=== PATIENT | female | born 1955 | race Hispanic/Latino ===

== ENCOUNTER 2018-07-04 17:11 | Inpatient (IN) | payer OTHER ==
[2018-07-04] MEDS ORDERED: Dextrose 50% SYRINGE Inj (50 ml) ONE (17:18)
--- NOTE | 2018-07-04 17:23 | ED PDOC ---
Arrival/HPI - General Historian: EMS - History of Present Illness Narrative History of Present Illness (Text): 07/04/18 17:23 A 63 year old female presents to the emergency department status post cardiac arrest. Per EMS, patient was called at home for a welfare check with no resp onse, 911 was called and police found patient with agonal breathing. EMS reports while en route to hospital, patient was in cardiac arrest and defibrillated multiple times. Per EMS, epinephrine and amiodarone was administered and patient was intubated. Neighbors at scene state patient was not feeling well yesterday and patient did go to dialysis but did not get a full treatment. Full HPI and ROS due to patient's acuity of condition. PMD: Dr. Arizmendi Time/Duration: Prior to Arrival Symptom Onset: Sudden Activities at Onset: Light Context: Home Past Medical History - Provider Review Nursing Documentation Reviewed: Yes - Cardiac Hx Cardiac Disorders: No - Pulmonary Hx Chronic Obstructive Pulmonary Disease (COPD): Yes Hx Emphysema: Yes Hx Pneumonia: Yes (d/c 11/27/17) - Neurological Hx Neurological Disorder: No - HEENT Hx HEENT Disorder: No Other/Comment: 2- side by side nodule on left neck - Renal Hx Renal Disorder: No - Endocrine/Metabolic Hx Endocrine Disorders: No - Hematological/Oncological Hx Cancer: Yes (neck,back of tongue) - Integumentary Hx Dermatological Disorder: No - Musculoskeletal/Rheumatological Hx Musculoskeletal Disorders: No - Gastrointestinal Hx Gastrointestinal Disorders: No - Genitourinary/Gynecological Hx Genitourinary Disorders: No - Psychiatric Hx Substance Use: No - Anesthesia Hx Anesthesia: No Family/Social History - Physician Review Nursing Documentation Reviewed: Yes Family/Social History: No Known Family HX Smoking Status: Heavy Smoker > 10 Cigarettes Daily Hx Alcohol Use: Yes (socially) Hx Substance Use: No Allergies/Home Meds Allergies/Adverse Reactions: Allergies No Known Allergies Allergy (Verified 02/13/18 14:00) Review of Systems - Review of Systems Systems not reviewed;Unavailable: Acuity of Condition Physical Exam - Physical Exam Narrative Physical Exam (Text): 07/04/18 17:23 Constitutional: Unresponsive. Head: Normocephalic. Atraumatic. Eyes: Pupils dilated, reactive. ENT: Intubated. Coffee ground emesis at mouth. Neck: Supple. Cardiovascular: Regular rate. Chest: No deformity. Respiratory: Mechanically ventilated GI: Soft. Musculoskeletal: No swelling of extremities. Skin: No rash. Neurologic: Unresponsive. Vital Signs Reviewed: Yes Blood Pressure: Hypertensive Pulse: Regular Respiratory Rate: Normal Medical Decision Making ED Course and Treatment: 07/04/18 17:24 Impression: 63 year old female presents to the emergency department status post cardiac arrest. Plan: -- Type and screen -- VBG -- Head CT without contrast -- Labs -- CBC -- COAGs -- Chest X-ray -- Blood culture -- Urine culture -- Urinalysis -- Reassess and disposition Prior Visits: Notes and results from previous visits were reviewed. Progress Notes: 07/04/18 17:38 EKG: Ordered, reviewed, and independently interpreted the EKG. Rate : 80 BPM Rhythm : NSR Interpretation : No ST elevations, large p waves. Dr. Jarvis accepts patient to ICU. Dr. Vallejo accepts patient to hospitalist service. Disposition/Present on Arrival - Present on Arrival Any Indicators Present on Arrival: No History of DVT/PE: No History of Uncontrolled Diabetes: No Urinary Catheter: No History Surgical Site Infection Following: None - Disposition Have Diagnosis and Disposition been Completed?: Yes Diagnosis: Cardiac arrest, GI bleed, Hypoglycemia Disposition: HOSPITALIZED Disposition Time: 18:00 Patient Plan: ICU Condition: CRITICAL
[2018-07-04 17:41] LABS: VENOUS BLOOD GAS BASE EXCESS -18.4 mmol/L (0.0-2.0); VENOUS BLOOD GAS PO2 71 mm/Hg (30-55); VENOUS BLOOD PH 6.97 (7.32-7.43)
[2018-07-04 17:48] LABS: INR 1.21; PARTIAL THROMBOPLASTIN TIME 34.9 Seconds (25.1-36.5); PROTHROMBIN TIME 13.8 SECONDS (9.4-12.5)
[2018-07-04 17:52] LABS: EOS % 0.2 % (1.5-5.0); GRAN # 4.97 (1.4-6.5); GRAN % 77.9 % (50.0-68.0); HEMOGLOBIN 10.4 g/dL (12.0-16.0); LYMPH # 0.8 (1.2-3.4); LYMPH % 12.2 % (22.0-35.0); MEAN CELL VOLUME 86.5 fl (80.0-105.0); MEAN CORPUSCULAR HGB CONC 31.2 g/dl (31.0-37.0); MEAN PLATELET VOLUME 10.8 fl (7.0-11.0); MONO # 0.6 (0.1-0.6); MONO % 9.7 % (1.0-6.0); RBC 3.85 10^6/uL (3.5-6.1); RED CELL DISTRIBUTION WIDTH 15.4 % (11.5-14.5); WHITE BLOOD COUNT 6.4 10^3/uL (4.5-11.0)
[2018-07-04] MEDS ORDERED: Sodium Bicarbonate (8.4%) 50 Meq Syringe IVP ONE (18:05)
[2018-07-04 18:11] LABS: ALB/GLOB RATIO 1.3 (1.1-1.8); ALBUMIN 3.2 g/dL (3.0-4.8); CALCIUM 8.6 mg/dL (8.4-10.5); TROPONIN I 0.24 ng/mL
[2018-07-04 18:16] LABS: CK MB% 0.6 % (2.5-3.0); CK-MB 12.7 ng/mL (0.0-3.6)
[2018-07-04] MEDS ORDERED: Sodium Chloride 0.9% 1,000 ML IV STA (18:20)
--- NOTE | 2018-07-04 19:34 | CP.PCM.HP ---
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 Pt was found at home with agonal breathing by police. EMS reports that en route to hospital pt went into cardiac arrest and had to be defibrillated multiple times on the way to the hospital. Pt was given epi and amiodarone, as well as intubated. HPI and ROS were limited due to patient's intubation. Patient's daughter (Frances Diaz, ) was contacted and she states that she the patient has become homeless due to her alcohol abuse, and has withdrawn from her entire family due to her heavy alcohol use (Ms. Diaz states that she last spoke to the patient about 3months ago). Ms. Diaz also is unable to provide any medical history as the patient kept everything private. Ms. Diaz states that the patient has a brother and sister, who also have not been in touch with the patient. PMH: as above PSH: permacath FH: unobtainable at this time SH: heavy alcohol abuse, tobacco abuse Allergies: denies Present on Admission - Present on Admission Any Indicators Present on Admission: No Review of Systems - Review of Systems Systems not reviewed;Unavailable: Intubated Review of Systems: unable to obtain, pt is intubated Past Patient History - Infectious Disease Hx of Infectious Diseases: None - Past Medical History & Family History Past Medical History?: Yes - Past Social History Smoking Status: Heavy Smoker > 10 Cigarettes Daily Alcohol: > 2 Drinks/Day Home Situation {Lives}: Alone - CARDIAC Hx Cardiac Disorders: No - PULMONARY Hx Chronic Obstructive Pulmonary Disease (COPD): Yes Hx Emphysema: Yes Hx Pneumonia: Yes (d/c 11/27/17) - NEUROLOGICAL Hx Neurological Disorder: No - HEENT Hx HEENT Problems: No Other/Comment: 2- side by side nodule on left neck - RENAL Hx Chronic Kidney Disease: No - ENDOCRINE/METABOLIC Hx Endocrine Disorders: No - HEMATOLOGICAL/ONCOLOGICAL Hx Cancer: Yes (neck,back of tongue) - INTEGUMENTARY Hx Dermatological Problems: No - MUSCULOSKELETAL/RHEUMATOLOGICAL Hx Musculoskeletal Disorders: No - GASTROINTESTINAL Hx Gastrointestinal Disorders: No - GENITOURINARY/GYNECOLOGICAL Hx Genitourinary Disorders: No - PSYCHIATRIC Hx Substance Use: No - SURGICAL HISTORY Hx Surgeries: No - ANESTHESIA Hx Anesthesia: No Meds Allergies/Adverse Reactions: Allergies Allergy/AdvReac Type Severity Reaction Status Date / Time No Known Allergies Allergy Verified 02/13/18 14:00 Physical Exam - Constitutional Appears: Older Than Stated Age, Cachectic, Chronically Ill - Head Exam Head Exam: ATRAUMATIC, NORMOCEPHALIC - Eye Exam Eye Exam: Conjunctival injection Pupil Exam: Mydriatic - ENT Exam Additional comments: intubated - Neck Exam Additional comments: EJ left side - Respiratory Exam Respiratory Exam: Rhonchi Additional comments: intubated - Cardiovascular Exam Cardiovascular Exam: RRR, +S1, +S2. absent: Diastolic murmur, Systolic Murmur - GI/Abdominal Exam GI & Abdominal Exam: Normal Bowel Sounds, Soft - Extremities Exam Extremities exam: Positive for: full ROM, pedal pulses present. Negative for: pedal edema Additional comments: left AVF R permacath - Neurological Exam Additional comments: pt intubated; non-responsive off sedation - Psychiatric Exam Additional comments: could not assess - Skin Skin Exam: Dry, Intact, Warm Results - Vital Signs Recent Vital Signs: Last Vital Signs Temp 88.1 F L 07/04/18 18:47 Pulse 76 07/04/18 18:47 Resp 14 07/04/18 18:47 BP 130/60 07/04/18 18:47 Pulse Ox 97 07/04/18 18:47 - Labs Result Diagrams: 07/04/18 17:48 07/04/18 17:29 Labs: Laboratory Results - last 24 hr 07/04/18 07/04/18 07/04/18 17:24 17:29 17:29 WBC RBC Hgb Hct MCV MCH MCHC RDW Plt Count MPV Gran % Lymph % (Auto) Austin % (Auto) Eos % (Auto) Baso % (Auto) Gran # Lymph # (Auto) [place] # (Auto) Eos # (Auto) Baso # (Auto) PT 13.8 H INR 1.21 APTT 34.9 pO2 71 H VBG pH 6.97 L* VBG pCO2 60.0 VBG HCO3 13.8 L VBG Total CO2 15.6 L VBG O2 Sat (Calc) 89.1 H VBG Base Excess -18.4 L VBG Potassium 5.7 H Sodium 122.0 L Chloride 83.0 L Glucose 445 H* D Lactate 10.4 H* FiO2 21.0 Crit Value Called To Bren ruiz Crit Value Called By Atc Blood Gas Notified Time 1740 Potassium Carbon Dioxide Anion Gap BUN Creatinine Est GFR ( Amer) Est GFR (Non-Af Amer) POC Glucose (mg/dL) > 500 H* Random Glucose Calcium Total Bilirubin AST ALT Alkaline Phosphatase Total Creatine Kinase CK-MB (CK-2) CK-MB (CK-2) % Troponin I NT-Pro-B Natriuret Pep Total Protein Albumin Globulin Albumin/Globulin Ratio Lipase Venous Blood Potassium 5.7 H Blood Type Antibody Screen BBK History Checked 07/04/18 07/04/18 07/04/18 17:29 17:48 17:56 WBC 6.4 RBC 3.85 Hgb 10.4 L Hct 33.3 L MCV 86.5 MCH 27.0 MCHC 31.2 RDW 15.4 H Plt Count 121 MPV 10.8 Gran % 77.9 H Lymph % (Auto) 12.2 L Austin % (Auto) 9.7 H Eos % (Auto) 0.2 L Baso % (Auto) 0.0 Gran # 4.97 Lymph # (Auto) 0.8 L Austin # (Auto) 0.6 Eos # (Auto) 0.0 Baso # (Auto) 0.00 PT INR APTT pO2 VBG pH VBG pCO2 VBG HCO3 VBG Total CO2 VBG O2 Sat (Calc) VBG Base Excess VBG Potassium Sodium 126 L Chloride 84 L Glucose Lactate FiO2 Crit Value Called To Crit Value Called By Blood Gas Notified Time Potassium 5.7 H* Carbon Dioxide 16 L Anion Gap 32 H BUN 82 H Creatinine 5.7 H Est GFR ( Amer) 9 Est GFR (Non-Af Amer) 8 POC Glucose (mg/dL) Random Glucose 374 H* Calcium 8.6 Total Bilirubin 0.7 AST 1460 H ALT 485 H Alkaline Phosphatase 67 Total Creatine Kinase 2084 H CK-MB (CK-2) 12.7 H CK-MB (CK-2) % 0.6 L Troponin I 0.24 H* NT-Pro-B Natriuret Pep 81231 H Total Protein 5.7 L Albumin 3.2 Globulin 2.5 Albumin/Globulin Ratio 1.3 Lipase 25 Venous Blood Potassium Blood Type A POSITIVE Antibody Screen Negative BBK History Checked No verified bt 07/04/18 18:49 WBC RBC Hgb Hct MCV MCH MCHC RDW Plt Count MPV Gran % Lymph % (Auto) Austin % (Auto) Eos % (Auto) Baso % (Auto) Gran # Lymph # (Auto) Austin # (Auto) Eos # (Auto) Baso # (Auto) PT INR APTT pO2 VBG pH VBG pCO2 VBG HCO3 VBG Total CO2 VBG O2 Sat (Calc) VBG Base Excess VBG Potassium Sodium Chloride Glucose Lactate FiO2 Crit Value Called To Crit Value Called By Blood Gas Notified Time Potassium Carbon Dioxide Anion Gap BUN Creatinine Est GFR ( Amer) Est GFR (Non-Af Amer) POC Glucose (mg/dL) 123 H Random Glucose Calcium Total Bilirubin AST ALT Alkaline Phosphatase Total Creatine Kinase CK-MB (CK-2) CK-MB (CK-2) % Troponin I NT-Pro-B Natriuret Pep Total Protein Albumin Globulin Albumin/Globulin Ratio Lipase Venous Blood Potassium Blood Type Antibody Screen BBK History Checked Assessment & Plan - Assessment and Plan (Free Text) Assessment: 63 yo female with a PMH of COPD, emphysema, pneumonia, 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 Plan: Neuro - UDS follow up - intubated, off sedation - pupils dilated - CT head pending Cardio - s/p Cardiac arrest, currently off pressors - not a candidate for code freeze due to her malignancy - correct electrolytes, recheck electrolytes q6h - maintain MAP above 65, will start pressers if needed - ECHO pending - Calcium given due to hyperK Respiratory - COPD - pH 6.97, HCO3 13.8, lactate 10.4 - intubated - ABG ordered and will adjust vent settins appropriately GI - GI ppx, protonix - LFT's elevated suggestive of shock liver or possible EtOH hepatitis - IVF will given, trend LFTs Nephro/ - rhabdo present - ESRD - 1/2 NS with 75meq NaHCO3 due to acidemia - monitor I/O - K 5.7, will give insulin and D50 along w/ Calcium - BUN 82, Cr 5.7 Heme/ Onc - HGB 10.4 - INR 1.21 - no overt signs of bleeding - type and screen ID - immunocompromised, currently on chemo - monitor for signs of infection Endo - hyperglycemia, but not diabetic - accucheck q6 - hypoglycemic protocol Advanced planning: communicated with family (Frances Diaz [phone]) code status, unknown at this moment Family will visit tomorrow Pt seen, examined, assessment and plan discussed with Dr Damir Fraser PGY1 - Date & Time Date: 07/04/18 Time: 19:40
[2018-07-04] MEDS ORDERED: Insulin Regular 1 UNITS/0.01 ML ML SC STA (19:44)
[2018-07-04] MEDS ORDERED: Calcium Chloride 1000 mg/10 ml Syringe IV ONE (19:47)
[2018-07-04] MEDS ORDERED: Dextrose 50% SYRINGE Inj (50 ml) IVP STA (19:47)
[2018-07-04] MEDS ORDERED: Dextrose 50% SYRINGE Inj (50 ml) IV PRN (19:59)
[2018-07-04 20:19] LABS: ARTERIAL BLOOD GAS HCO3 16.4 mmol/L (21-28); ARTERIAL BLOOD GAS HEMOGLOBIN 10.4 g/dL (11.7-17.4); ARTERIAL BLOOD GAS O2 CAPACITY 15.8 mL/dl (16-24); ARTERIAL BLOOD GAS O2 CONTENT 15.8 ML/dl (15-23); ARTERIAL BLOOD GAS O2 SAT 100.3 % (95-98); ARTERIAL BLOOD GAS PCO2 54 mm/Hg (35-45); ARTERIAL BLOOD GAS PH 7.09 (7.35-7.45); ARTERIAL BLOOD GAS TCO2 18.1 mmol.L (22-28)
[2018-07-04] MEDS ORDERED: Magnesium Sulfate 2 gm/50 ml 2 GM/50 ML BAG IVPB ONE (21:03)
[2018-07-04] MEDS ORDERED: NOREPINEPHRINE BIT/0.9 % NACL 4 MG/250 ML BAG IV PRN (22:55)
--- NOTE | 2018-07-04 23:14 | PCM.PROC ---
Procedures Attestation:: I certify that I have explained the specified Operation(s) or Procedure(s), risks, benefits and reasonable alternatives to the Patient and/or other person responsible. The opportunity was given to ask questions and all questions answered - Central Line Placement Right Femoral Triple Lumen Catheter Aseptic technique was employed throughout the procedure: Hand Hygiene done prior to procedure, Full sterile barriers (mask, hair cover, sterile gown, sterile gloves), Full body sterile drape, Chloraprep Antiseptic: 2 minute prep for Femoral CVP Time Out Performed: No Pt. Placed on Pulse Ox Monitor: Yes Central Line Prep: Chlorhexidine-Alcohol Combination Local Anesthesia Used: Lidocaine 1% Amount of Anesthesia Used (mls): 5 Ultrasound Used for Placement: Yes Central Line Lumen Inserted: triple Central Line Length: 30 cm Post Procedure: Sutured in Place, Good Blood Return, All Ports Aspirated, Flushed, Capped, Sterile Dressing Applied Secured by: Suture Post procedure dressing: Clear vapor permeable, Chlorhexidine disc (Biopatch) Post Procedure X-Ray: No Patient Tolerated Procedure: Well, No Complications Immediate Complications: None Additional Comments: Consent could not be obtained as TLC was emergently inserted Assisted by resident intern Dr. Cadena
--- NOTE | 2018-07-04 23:20 | CP.PCM.PCO ---
Physician Communication Note - Physician Communication Note Physician Communication Note: R femoral TLC placed,levophed gtt started as BP dropped,banana bag for etoh
[2018-07-04 23:43] VITALS: BMI 16.8
[2018-07-04 23:43] LABS: VENOUS BLOOD GAS BASE EXCESS -11.8 mmol/L (0.0-2.0); VENOUS BLOOD GAS PO2 44 mm/Hg (30-55); VENOUS BLOOD PH 7.03 (7.32-7.43)
[2018-07-04 23:53] LABS: HEMOGLOBIN 10.7 g/dL (12.0-16.0); MEAN CELL VOLUME 87.2 fl (80.0-105.0); MEAN CORPUSCULAR HEMOGLOBIN 27.4 pg (25.0-35.0); MEAN CORPUSCULAR HGB CONC 31.4 g/dl (31.0-37.0); MEAN PLATELET VOLUME 9.6 fl (7.0-11.0); RBC 3.91 10^6/uL (3.5-6.1); RED CELL DISTRIBUTION WIDTH 15.3 % (11.5-14.5); WHITE BLOOD COUNT 3.4 10^3/uL (4.5-11.0)
[2018-07-05] MEDS: Dexamethasone 4 mg/1 ml IVP SCH ×6 (00:10→20:00)
[2018-07-05 00:17] LABS: ARTERIAL BLOOD GAS HCO3 18.1 mmol/L (21-28); ARTERIAL BLOOD GAS HEMOGLOBIN 11.2 g/dL (11.7-17.4); ARTERIAL BLOOD GAS O2 SAT 100.2 % (95-98); ARTERIAL BLOOD GAS PCO2 57 mm/Hg (35-45); ARTERIAL BLOOD GAS PH 7.11 (7.35-7.45); ARTERIAL BLOOD GAS TCO2 19.8 mmol.L (22-28)
[2018-07-05 00:43] LABS: ALB/GLOB RATIO 1.2 (1.1-1.8); ALBUMIN 3.1 g/dL (3.0-4.8); CALCIUM 9.5 mg/dL (8.4-10.5); TROPONIN I 0.31 ng/mL
[2018-07-05] MEDS ORDERED: Multivitamin (MVI) 10 ML, Thiamine 100 MG, Folic Acid 1 MG in Sodium Chloride 0.9% 1,00... IV ONE (01:02)
[2018-07-05 01:05] LABS: CK MB% 0.6 % (2.5-3.0); CK-MB 28.4 ng/mL (0.0-3.6)
[2018-07-05 05:51] LABS: BASO # 0.01 K/mm3 (0.0-2.0); BASO % 0.2 % (0.0-3.0); EOS % 0.2 % (1.5-5.0); GRAN # 2.87 (1.4-6.5); GRAN % 57.5 % (50.0-68.0); HEMOGLOBIN 9.2 g/dL (12.0-16.0); LYMPH # 1.3 (1.2-3.4); LYMPH % 25.9 % (22.0-35.0); MEAN CELL VOLUME 88.7 fl (80.0-105.0); MEAN CORPUSCULAR HEMOGLOBIN 26.7 pg (25.0-35.0); MEAN CORPUSCULAR HGB CONC 30.2 g/dl (31.0-37.0); MEAN PLATELET VOLUME 9.3 fl (7.0-11.0); MONO # 0.8 (0.1-0.6); MONO % 16.2 % (1.0-6.0); RBC 3.44 10^6/uL (3.5-6.1); RED CELL DISTRIBUTION WIDTH 15.3 % (11.5-14.5)
[2018-07-05 06:04] LABS: VENOUS BLOOD GAS BASE EXCESS -12.2 mmol/L (0.0-2.0); VENOUS BLOOD GAS PO2 33 mm/Hg (30-55); VENOUS BLOOD PH 7.03 (7.32-7.43)
--- NOTE | 2018-07-05 06:04 | PCM.RRT ---
HUMAN RESOURCES BENEFITS SPECIALIST Nurse Assessment - Situation Date: 07/05/18 Time HUMAN RESOURCES BENEFITS SPECIALIST was called: 05:32 HUMAN RESOURCES BENEFITS SPECIALIST Responder Arrival Time: 05:33 HUMAN RESOURCES BENEFITS SPECIALIST Location:: Critical Care Unit Room Number: 128-1 HUMAN RESOURCES BENEFITS SPECIALIST Reason for Call: Not Responding to Urgent Treatment HUMAN RESOURCES BENEFITS SPECIALIST Called By: RN - IV IV Inserted during HUMAN RESOURCES BENEFITS SPECIALIST?: No - Respiratory Oxygen Delivery Method: Intubated - Ventilator Settings Mode: PRVC Ventilator Respiratory Rate Settin Ventilator Tidal Volume Settin PEEP: 5 Fraction of Inspired Oxygen (FIO2): 40 - Medication Medications Administered During HUMAN RESOURCES BENEFITS SPECIALIST: epinephrine, bicarb - Diagnostic Test Ordered EKG: Yes - Stat Labs Ordered HUMAN RESOURCES BENEFITS SPECIALIST Stat Labs Ordered: CBC, BMP, TROPONIN, LACTIC ACID, ABG CPR started during HUMAN RESOURCES BENEFITS SPECIALIST?: Yes - Time HUMAN RESOURCES BENEFITS SPECIALIST Ended Time HUMAN RESOURCES BENEFITS SPECIALIST Ended: 05:40 - Vital Signs at end of HUMAN RESOURCES BENEFITS SPECIALIST Vital Signs at end of HUMAN RESOURCES BENEFITS SPECIALIST: 205/165 - Recommendations 5) HUMAN RESOURCES BENEFITS SPECIALIST Level of Care Recommendations: Remain in current setting Notifications: Attending Physician, Family or Designated Caregiver (attempted unsucessfully ) I.Reason for HUMAN RESOURCES BENEFITS SPECIALIST - A) Acute Change in Patient: Subjective: code blue - Constitutional Appears: Toxic, Cachectic, Chronically Ill - Head Head Exam: ATRAUMATIC - Eyes Eye Exam: absent: PERRL Additional Comments: dilated pupils, nonreactive to light b/l - Respiratory Exam Respiratory Exam: Clear to Ausculation Bilateral, NORMAL BREATHING PATTERN Additional comments: intubated, on vent - Cardiovascular Exam Cardiovascular Exam: RRR, +S1, +S2 Additional comments: R femoral TLC R chest permacath L AVF - GI/Abdominal Exam GI & Abdominal Exam: Soft. absent: Tenderness Additional comments: gt in place suction to wall showing dark fluid - Neurological Exam Neurological Exam: absent: Alert, Awake, Oriented x3 Additional exam: non-responsive, off sedation - Extremities Exam Extremities Exam: absent: Full ROM, Pedal Edema Additional comments: + ramsey cath Plan - Assessment of Findings&Treatment Plan CODE BLUE note 63 year old female with a PMH of head/neck CA on chemo and XRT (complicated by renal failure requiring HD), heavy EtOH abuse who presented post-cardiac arrest. Labs had showed metabolic acidosis, hyperkalemia, and end-organ damage. Patient was on levophed for BP support when she went pulseless, and JAYNE BUCKNER was called. Cardiac arrest protocol was carried out for asystole according to AHA ACLS protocol. 3 rounds of epinephrine were administered, as was 1amp bicarb. Compressions were performed, and patient was already intubated. Rhythm was unshockable and monitor showed PEA. EKG and labs were drawn. ROSC was obtained in about 10 minutes. Patient's daughter (Ms. Diaz) was contacted but there was no response (a message was left to call Dr. Cordova back). The patient remains full-code, and she will remain in ICU on Levophed and IVF. Glucose was noted to be <20, so 1amp D50 was also administered after ROSC was obtained. Brian Cordova PGY2
[2018-07-05 06:06] LABS: ARTERIAL BLOOD GAS HCO3 16.3 mmol/L (21-28); ARTERIAL BLOOD GAS HEMOGLOBIN 9.2 g/dL (11.7-17.4); ARTERIAL BLOOD GAS O2 CAPACITY 13.2 mL/dl (16-24); ARTERIAL BLOOD GAS O2 CONTENT 13.2 ML/dl (15-23); ARTERIAL BLOOD GAS O2 SAT 99.9 % (95-98); ARTERIAL BLOOD GAS PCO2 55 mm/Hg (35-45); ARTERIAL BLOOD GAS PH 7.08 (7.35-7.45)
[2018-07-05 06:24] LABS: PLATELET COUNT 44 10^3/uL (120.0-450.0)
[2018-07-05] MEDS ORDERED: Sodium Bicarbonate (8.4%) 50 Meq Syringe IVP ONE ×3 (06:52→08:46)
[2018-07-05] MEDS ORDERED: Vasopressin 20 UNITS in Dextrose 5% In Water 100 ML IV SCH (07:15)
[2018-07-05 07:24] LABS: ALBUMIN 2.2 g/dL (3.0-4.8); ALT/SGPT 1239 U/L (7-56); AST/SGOT 4212 U/L (14-36); BLOOD UREA NITROGEN 78 mg/dL (7-21); CALCIUM 7.5 mg/dL (8.4-10.5); GFR NON-AFRICAN AMERICAN 10
[2018-07-05 07:30] LABS: CK MB% 0.8 % (2.5-3.0)
--- NOTE | 2018-07-05 08:02 | CARD ---
APPROVED REPORT Date of service: 07/04/2018 EKG Measurement Heart [id number] <Conclusion> Normal sinus rhythm Right atrial enlargement Left axis deviation Pulmonary disease pattern Inferior infarct, age undetermined Abnormal ECG
--- NOTE | 2018-07-05 08:15 | CARD ---
APPROVED REPORT Date of service: 07/05/2018 EKG Measurement Heart [id number] <Conclusion> Sinus rhythm with 1st degree AV block Right atrial enlargement Left anterior fascicular block Anteroseptal infarct, age undetermined Abnormal ECG
[2018-07-05] MEDS ORDERED: Dextrose 50% SYRINGE Inj (50 ml) ONE (08:30)
[2018-07-05] MEDS: Dextrose 50% SYRINGE Inj (50 ml) IV PRN ×5 (09:26→20:05)
[2018-07-05 09:30] LABS: VENOUS BLOOD GAS BASE EXCESS -7.8 mmol/L (0.0-2.0); VENOUS BLOOD GAS PO2 52 mm/Hg (30-55); VENOUS BLOOD PH 7.12 (7.32-7.43)
[2018-07-05] MEDS ORDERED: SODIUM BICARBONATE IV SCH ×4 (09:45→13:00)
[2018-07-05] MEDS ORDERED: Sodium Bicarbonate 8.4% 100 MEQ in Dextrose 5%/0.45% NS 1,000 ML IV SCH ×2 (09:45→11:12)
[2018-07-05] MEDS ORDERED: [UNRECOGNIZED DRUG - OTHER] IV SCH (09:45)
[2018-07-05] MEDS ORDERED: DEXTROSE IV SCH (09:45)
[2018-07-05] MEDS ORDERED: Multivitamin (MVI) 10 ML, Thiamine 100 MG, Folic Acid 1 MG in Sodium Chloride 0.9% 1,00... IV SCH (10:00)
--- NOTE | 2018-07-05 10:52 | CT ---
Date of service: 07/04/2018 PROCEDURE: CT HEAD WITHOUT CONTRAST. HISTORY: ams, arrested COMPARISON: None available. TECHNIQUE: Axial computed tomography images were obtained through the head/brain without intravenous contrast. Radiation dose: Total exam DLP = 1247.04 mGy-cm. This CT exam was performed using one or more of the following dose reduction techniques: Automated exposure control, adjustment of the mA and/or kV according to patient size, and/or use of iterative reconstruction technique. FINDINGS: HEMORRHAGE: No intracranial hemorrhage. BRAIN: Ill-defined low-attenuation both high frontoparietal vertex, bilateral occipital lobe, right greater than left. Loss of normal sam/white matter differentiation diffusely. Suspect diffuse cerebral edema. Likely secondary to recent hypoxic event. No focal mass. VENTRICLES: Unremarkable. No hydrocephalus. CALVARIUM: Unremarkable. PARANASAL SINUSES: Air-fluid level in right maxillary antrum, uncertain significance. No evidence of orbital floor fracture. Possible acute sinusitis. Correlate clinically. Air-fluid levels also seen in sphenoid sinus and minimal in left maxillary sinus. MASTOID AIR CELLS: Unremarkable as visualized. No inflammatory changes. OTHER FINDINGS: None. IMPRESSION: Findings suggestive of diffuse cerebral edema likely secondary to recent hypoxic event. Air-fluid levels in multiple paranasal sinuses which may reflect acute sinusitis. Correlate clinically. The preliminary findings for this examination were reported by [facility] at 9:13 p.m. on 07/04/2018. There is concurrence of this report with the preliminary findings.
[2018-07-05 11:23] LABS: ARTERIAL BLOOD GAS HCO3 22.9 mmol/L (21-28); ARTERIAL BLOOD GAS PCO2 51 mm/Hg (35-45); ARTERIAL BLOOD GAS PH 7.26 (7.35-7.45); ARTERIAL BLOOD GAS TCO2 24.5 mmol.L (22-28)
[2018-07-05] MEDS ORDERED: DEXTROSE 5% IV SCH ×3 (12:30→13:00)
[2018-07-05] MEDS ORDERED: WATER IV SCH ×3 (12:30→13:00)
--- NOTE | 2018-07-05 13:21 | CP.PCM.CON ---
History of Present Illness - History of Present Illness History of Present Illness: RENAL CONSULT 63 yo F w/ pmh of COPD, ESRD, HTN, head anc neck Ca that presented to ER post arrest. Was found at home w/ agnoal breathing and brought ot hospital. She remains in icu on pressors and unresponsive. Unable to get any further history - discussed case w/ her daugther over phone who states pt has cut herself off from family and she doesnot know too much details regarding her. ros: a full detailed ROS is limited as pt intubated and sedated pmh: esrd htn copd cancer famhx: unable to obtain sh: unable to obtain meds: below all: nkda pe: intubated and sedated sclera aniciterc op et tube neck: supple cv +s1+s2 no rub lungs reduced bs mechanical bs abd: soft nt nd no organomegaly ext: + edema skin: + scratch wilde b/l LE neuro: sedated psych: sedated labs and imaging reviewed imp: ESRD /Hyperkalemia/ Cardiac arrest/ Anemia / Acidosis plan: will trial I-HD today given severe hyperk w/ no UF given her hypotension k should improve p hd arrest - per primary team prbc per primary team will hold irco for now d/c hco3 gtt as will get HD if able to start meds po start phoslo 3 tabs po TID Past Patient History - Infectious Disease Hx of Infectious Diseases: None - Past Medical History & Family History Past Medical History?: Yes - Past Social History Smoking Status: Heavy Smoker > 10 Cigarettes Daily - CARDIAC Hx Cardiac Disorders: No - PULMONARY Hx Chronic Obstructive Pulmonary Disease (COPD): Yes Hx Emphysema: Yes Hx Pneumonia: Yes (d/c 11/27/17) - NEUROLOGICAL Hx Neurological Disorder: No - HEENT Hx HEENT Problems: No Other/Comment: 2- side by side nodule on left neck - RENAL Hx Chronic Kidney Disease: No - ENDOCRINE/METABOLIC Hx Endocrine Disorders: No - HEMATOLOGICAL/ONCOLOGICAL Hx Cancer: Yes (neck,back of tongue) - INTEGUMENTARY Hx Dermatological Problems: No - MUSCULOSKELETAL/RHEUMATOLOGICAL Hx Musculoskeletal Disorders: No Hx Falls: Yes - GASTROINTESTINAL Hx Gastrointestinal Disorders: No - GENITOURINARY/GYNECOLOGICAL Hx Genitourinary Disorders: No - PSYCHIATRIC Hx Psychophysiologic Disorder: No - SURGICAL HISTORY Hx Surgeries: No - ANESTHESIA Hx Anesthesia: No Meds Allergies/Adverse Reactions: Allergies Allergy/AdvReac Type Severity Reaction Status Date / Time No Known Allergies Allergy Verified 02/13/18 14:00 - Medications Medications: Current Medications Dexamethasone (Decadron Inj) 4 mg IVP Q4 KARINA Last Admin: 07/05/18 08:49 Dose: 4 mg Dextrose (Dextrose 50% Inj) 0 ml IV STAT PRN; Protocol PRN Reason: Hypoglycemia Protocol Last Admin: 07/05/18 06:00 Dose: 50 ml Dextrose (Dextrose 50% Inj) 0 ml IV STAT PRN; Protocol PRN Reason: Hypoglycemia Protocol Last Admin: 07/05/18 10:26 Dose: 50 ml Multivitamins/Vitamin C 10 ml/Thiamine HCl 100 mg/ Folic Acid 1 mg/ Sodium Chloride 1,011.2 mls @ 100 mls/hr IV DAILY KARINA Multivitamins/Vitamin C 10 ml/Thiamine HCl 100 mg/ Folic Acid 1 mg/ Sodium Chloride 1,011.2 mls @ 40 mls/hr IV .Q24H ONE Stop: 07/06/18 01:01 Last Admin: 07/05/18 01:44 Dose: 40 mls/hr Vasopressin 20 units/ Sodium (Chloride) 101 mls @ 9.09 mls/hr IV .Q11H7M KARINA; Protocol Last Admin: 07/05/18 08:45 Dose: 9.09 mls/hr Dextrose (Dextrose 10% In Water) 500 mls @ 50 mls/hr IV .Q10H KARINA Last Admin: 07/05/18 10:25 Dose: 50 mls/hr Norepinephrine Bitartrate 16 (mg/ Dextrose) 266 mls @ 3.99 mls/hr IV .Q24H KARINA; Protocol Last Admin: 07/05/18 11:30 Dose: 15 mcg/min, 14.96 mls/hr Sodium Bicarbonate 100 meq/ (Dextrose) 600 mls @ 40 mls/hr IV .Q15H KARINA Sodium Bicarbonate 100 meq/ (Dextrose) 600 mls @ 40 mls/hr IV .Q15H KARINA Pantoprazole Sodium (Protonix Inj) 40 mg IVP DAILY [facility] Last Admin: 07/05/18 09:00 Dose: 40 mg Results - Vital Signs Recent Vital Signs: Last Vital Signs Temp 98.4 F 07/05/18 10:00 Pulse 96 H 07/05/18 10:00 Resp 31 H 07/05/18 00:01 BP 139/76 07/05/18 10:00 Pulse Ox 95 07/05/18 10:00 - Labs Result Diagrams: 07/05/18 05:00 07/05/18 05:00 Labs: Laboratory Results - last 24 hr 07/04/18 07/04/18 07/04/18 17:24 17:29 17:29 WBC RBC Hgb Hct MCV MCH MCHC RDW Plt Count MPV Gran % Lymph % (Auto) [place] % (Auto) Eos % (Auto) Baso % (Auto) Gran # Lymph # (Auto) [place] # (Auto) Eos # (Auto) Baso # (Auto) PT 13.8 H INR 1.21 APTT 34.9 pCO2 pO2 71 H HCO3 ABG pH ABG Total CO2 ABG O2 Saturation ABG O2 Content ABG Base Excess ABG Hemoglobin ABG Carboxyhemoglobin POC ABG HHb (Measured) ABG Methemoglobin ABG O2 Capacity ABG Potassium VBG pH 6.97 L* VBG pCO2 60.0 VBG HCO3 13.8 L VBG Total CO2 15.6 L VBG O2 Sat (Calc) 89.1 H VBG Base Excess -18.4 L VBG Potassium 5.7 H Hgb O2 Saturation Sodium 122.0 L Chloride 83.0 L Glucose 445 H* D Lactate 10.4 H* Mechanical Rate FiO2 21.0 Tidal Volume PEEP Crit Value Called To Bren ruiz Crit Value Called By [facility] Blood Gas Notified Time 1740 Potassium Carbon Dioxide Anion Gap BUN Creatinine Est GFR ( Amer) Est GFR (Non-Af Amer) POC Glucose (mg/dL) > 500 H* Random Glucose Calcium Phosphorus Magnesium Total Bilirubin AST ALT Alkaline Phosphatase Lactate Dehydrogenase Total Creatine Kinase CK-MB (CK-2) CK-MB (CK-2) % Troponin I NT-Pro-B Natriuret Pep Total Protein Albumin Globulin Albumin/Globulin Ratio Lipase TSH 3rd Generation Arterial Blood Potassium Venous Blood Potassium 5.7 H Acetaminophen Alcohol, Quantitative Blood Type Antibody Screen BBK History Checked 07/04/18 07/04/18 07/04/18 17:29 17:48 17:56 WBC 6.4 RBC 3.85 Hgb 10.4 L Hct 33.3 L MCV 86.5 MCH 27.0 MCHC 31.2 RDW 15.4 H Plt Count 121 MPV 10.8 Gran % 77.9 H Lymph % (Auto) 12.2 L [place] % (Auto) 9.7 H Eos % (Auto) 0.2 L Baso % (Auto) 0.0 Gran # 4.97 Lymph # (Auto) 0.8 L [place] # (Auto) 0.6 Eos # (Auto) 0.0 Baso # (Auto) 0.00 PT INR APTT pCO2 pO2 HCO3 ABG pH ABG Total CO2 ABG O2 Saturation ABG O2 Content ABG Base Excess ABG Hemoglobin ABG Carboxyhemoglobin POC ABG HHb (Measured) ABG Methemoglobin ABG O2 Capacity ABG Potassium VBG pH VBG pCO2 VBG HCO3 VBG Total CO2 VBG O2 Sat (Calc) VBG Base Excess VBG Potassium Hgb O2 Saturation Sodium 126 L Chloride 84 L Glucose Lactate Mechanical Rate FiO2 Tidal Volume PEEP Crit Value Called To Crit Value Called By Blood Gas Notified Time Potassium 5.7 H* Carbon Dioxide 16 L Anion Gap 32 H BUN 82 H Creatinine 5.7 H Est GFR ( Amer) 9 Est GFR (Non-Af Amer) 8 POC Glucose (mg/dL) Random Glucose 374 H* Calcium 8.6 Phosphorus Magnesium Total Bilirubin 0.7 AST 1460 H ALT 485 H Alkaline Phosphatase 67 Lactate Dehydrogenase Total Creatine Kinase 2084 H CK-MB (CK-2) 12.7 H CK-MB (CK-2) % 0.6 L Troponin I 0.24 H* NT-Pro-B Natriuret Pep 22161 H Total Protein 5.7 L Albumin 3.2 Globulin 2.5 Albumin/Globulin Ratio 1.3 Lipase 25 TSH 3rd Generation Arterial Blood Potassium Venous Blood Potassium Acetaminophen Alcohol, Quantitative Blood Type A POSITIVE Antibody Screen Negative BBK History Checked No verified bt 07/04/18 07/04/18 07/04/18 18:49 20:00 20:00 WBC RBC Hgb Hct MCV MCH MCHC RDW Plt Count MPV Gran % Lymph % (Auto) [place] % (Auto) Eos % (Auto) Baso % (Auto) Gran # Lymph # (Auto) [place] # (Auto) Eos # (Auto) Baso # (Auto) PT INR APTT pCO2 pO2 HCO3 ABG pH ABG Total CO2 ABG O2 Saturation ABG O2 Content ABG Base Excess ABG Hemoglobin ABG Carboxyhemoglobin POC ABG HHb (Measured) ABG Methemoglobin ABG O2 Capacity ABG Potassium VBG pH VBG pCO2 VBG HCO3 VBG Total CO2 VBG O2 Sat (Calc) VBG Base Excess VBG Potassium Hgb O2 Saturation Sodium Chloride Glucose Lactate Mechanical Rate FiO2 Tidal Volume PEEP Crit Value Called To Crit Value Called By Blood Gas Notified Time Potassium Carbon Dioxide Anion Gap BUN Creatinine Est GFR ( Amer) Est GFR (Non-Af Amer) POC Glucose (mg/dL) 123 H Random Glucose Calcium Phosphorus Magnesium Total Bilirubin AST ALT Alkaline Phosphatase Lactate Dehydrogenase Total Creatine Kinase CK-MB (CK-2) CK-MB (CK-2) % Troponin I NT-Pro-B Natriuret Pep Total Protein Albumin Globulin Albumin/Globulin Ratio Lipase TSH 3rd Generation Arterial Blood Potassium Venous Blood Potassium Acetaminophen < 10.0 L Alcohol, Quantitative < 10 Blood Type Antibody Screen BBK History Checked 07/04/18 07/04/18 07/04/18 20:00 20:09 20:17 WBC RBC Hgb Hct MCV MCH MCHC RDW Plt Count MPV Gran % Lymph % (Auto) [place] % (Auto) Eos % (Auto) Baso % (Auto) Gran # Lymph # (Auto) [place] # (Auto) Eos # (Auto) Baso # (Auto) PT INR APTT pCO2 54 H pO2 473.0 H HCO3 16.4 L ABG pH 7.09 L* ABG Total CO2 18.1 L ABG O2 Saturation 100.3 H ABG O2 Content 15.8 ABG Base Excess -13.2 L ABG Hemoglobin 10.4 L ABG Carboxyhemoglobin 1.2 POC ABG HHb (Measured) -0.3 L ABG Methemoglobin 0.5 ABG O2 Capacity 15.8 L ABG Potassium VBG pH VBG pCO2 VBG HCO3 VBG Total CO2 VBG O2 Sat (Calc) VBG Base Excess VBG Potassium Hgb O2 Saturation 98.7 H Sodium Chloride Glucose Lactate Mechanical Rate FiO2 100.0 Tidal Volume PEEP Crit Value Called To Iqsa rn Crit Value Called By Matthew Blood Gas Notified Time 2019 Potassium Carbon Dioxide Anion Gap BUN Creatinine Est GFR ( Amer) Est GFR (Non-Af Amer) POC Glucose (mg/dL) 143 H Random Glucose Calcium Phosphorus 11.9 H Magnesium 2.7 H Total Bilirubin AST ALT Alkaline Phosphatase Lactate Dehydrogenase Total Creatine Kinase CK-MB (CK-2) CK-MB (CK-2) % Troponin I NT-Pro-B Natriuret Pep Total Protein Albumin Globulin Albumin/Globulin Ratio Lipase TSH 3rd Generation Arterial Blood Potassium Venous Blood Potassium Acetaminophen Alcohol, Quantitative Blood Type Antibody Screen BBK History Checked 07/04/18 07/04/18 07/04/18 23:20 23:20 23:20 WBC 3.4 L D RBC 3.91 Hgb 10.7 L Hct 34.1 L MCV 87.2 MCH 27.4 MCHC 31.4 RDW 15.3 H Plt Count 92 L MPV 9.6 Gran % Lymph % (Auto) [place] % (Auto) Eos % (Auto) Baso % (Auto) Gran # Lymph # (Auto) [place] # (Auto) Eos # (Auto) Baso # (Auto) PT INR APTT pCO2 pO2 44 HCO3 ABG pH ABG Total CO2 ABG O2 Saturation ABG O2 Content ABG Base Excess ABG Hemoglobin ABG Carboxyhemoglobin POC ABG HHb (Measured) ABG Methemoglobin ABG O2 Capacity ABG Potassium VBG pH 7.03 L* VBG pCO2 77.0 H* VBG HCO3 20.3 L VBG Total CO2 22.7 VBG O2 Sat (Calc) 66.5 H VBG Base Excess -11.8 L VBG Potassium 5.4 H Hgb O2 Saturation Sodium 130 L 127.0 L Chloride 89 L 90.0 L Glucose 161 H Lactate 8.2 H* Mechanical Rate FiO2 21.0 Tidal Volume PEEP Crit Value Called To cha Baldwin Crit Value Called By Jeevan Blood Gas Notified Time 2343 Potassium 5.3 H Carbon Dioxide 23 Anion Gap 24 H BUN 86 H Creatinine 5.3 H Est GFR ( Amer) 10 Est GFR (Non-Af Amer) 8 POC Glucose (mg/dL) Random Glucose 154 H Calcium 9.5 Phosphorus 11.0 H Magnesium 2.4 H Total Bilirubin 0.7 AST 2771 H ALT 571 H Alkaline Phosphatase 80 Lactate Dehydrogenase 7324 H Total Creatine Kinase 4669 H CK-MB (CK-2) 28.4 H CK-MB (CK-2) % 0.6 L Troponin I 0.31 H* D NT-Pro-B Natriuret Pep Total Protein 5.7 L Albumin 3.1 Globulin 2.6 Albumin/Globulin Ratio 1.2 Lipase TSH 3rd Generation Arterial Blood Potassium Venous Blood Potassium 5.4 H Acetaminophen Alcohol, Quantitative Blood Type Antibody Screen BBK History Checked 07/04/18 07/05/18 07/05/18 23:59 00:11 05:00 WBC RBC Hgb Hct MCV MCH MCHC RDW Plt Count MPV Gran % Lymph % (Auto) [place] % (Auto) Eos % (Auto) Baso % (Auto) Gran # Lymph # (Auto) [place] # (Auto) Eos # (Auto) Baso # (Auto) PT INR APTT pCO2 57 H pO2 556.0 H HCO3 18.1 L ABG pH 7.11 L* ABG Total CO2 19.8 L ABG O2 Saturation 100.2 H ABG O2 Content 17.0 ABG Base Excess -11.4 L ABG Hemoglobin 11.2 L ABG Carboxyhemoglobin 1.2 POC ABG HHb (Measured) -0.2 L ABG Methemoglobin 0.9 ABG O2 Capacity 17.0 ABG Potassium VBG pH VBG pCO2 VBG HCO3 VBG Total CO2 VBG O2 Sat (Calc) VBG Base Excess VBG Potassium Hgb O2 Saturation 98.1 H Sodium Chloride Glucose Lactate Mechanical Rate FiO2 100.0 Tidal Volume PEEP Crit Value Called To Agustina romo Crit Value Called By [facility] Blood Gas Notified Time 16 Potassium Carbon Dioxide Anion Gap BUN Creatinine Est GFR ( Amer) Est GFR (Non-Af Amer) POC Glucose (mg/dL) 176 H Random Glucose Calcium Phosphorus Magnesium Total Bilirubin AST ALT Alkaline Phosphatase Lactate Dehydrogenase Total Creatine Kinase CK-MB (CK-2) CK-MB (CK-2) % Troponin I NT-Pro-B Natriuret Pep Total Protein Albumin Globulin Albumin/Globulin Ratio Lipase TSH 3rd Generation 8.48 H Arterial Blood Potassium Venous Blood Potassium Acetaminophen Alcohol, Quantitative Blood Type Antibody Screen BBK History Checked 07/05/18 07/05/18 07/05/18 05:00 05:00 05:00 WBC 5.0 D RBC 3.44 L Hgb 9.2 L Hct 30.5 L MCV 88.7 MCH 26.7 MCHC 30.2 L RDW 15.3 H Plt Count 44 L* MPV 9.3 Gran % 57.5 Lymph % (Auto) 25.9 [place] % (Auto) 16.2 H Eos % (Auto) 0.2 L Baso % (Auto) 0.2 Gran # 2.87 Lymph # (Auto) 1.3 [place] # (Auto) 0.8 H Eos # (Auto) 0.0 Baso # (Auto) 0.01 PT INR APTT pCO2 pO2 33 HCO3 ABG pH ABG Total CO2 ABG O2 Saturation ABG O2 Content ABG Base Excess ABG Hemoglobin ABG Carboxyhemoglobin POC ABG HHb (Measured) ABG Methemoglobin ABG O2 Capacity ABG Potassium VBG pH 7.03 L* VBG pCO2 75.0 H* VBG HCO3 19.8 L VBG Total CO2 22.1 VBG O2 Sat (Calc) 50.8 VBG Base Excess -12.2 L VBG Potassium 6.4 H* Hgb O2 Saturation Sodium 136 133.0 Chloride 97 L 96.0 L Glucose 15 L* D Lactate 10.3 H* Mechanical Rate FiO2 21.0 Tidal Volume PEEP Crit Value Called To moncho Anthony Crit Value Called By Jeevan Blood Gas Notified Time 603 Potassium 6.4 H* D Carbon Dioxide 21 Anion Gap 24 H BUN 78 H Creatinine 4.6 H Est GFR ( Amer) 12 Est GFR (Non-Af Amer) 10 POC Glucose (mg/dL) Random Glucose < 20 L* D Calcium 7.5 L Phosphorus 10.0 H Magnesium 2.3 H Total Bilirubin 0.7 AST 4212 H ALT 1239 H Alkaline Phosphatase 61 Lactate Dehydrogenase 04865 H Total Creatine Kinase 3185 H CK-MB (CK-2) 26.0 H CK-MB (CK-2) % 0.8 L Troponin I 0.30 H* NT-Pro-B Natriuret Pep Total Protein 4.3 L Albumin 2.2 L Globulin 2.1 Albumin/Globulin Ratio 1.0 L Lipase TSH 3rd Generation Arterial Blood Potassium Venous Blood Potassium 6.4 H* Acetaminophen Alcohol, Quantitative Blood Type Antibody Screen BBK History Checked 07/05/18 07/05/18 07/05/18 05:50 06:09 07:41 WBC RBC Hgb Hct MCV MCH MCHC RDW Plt Count MPV Gran % Lymph % (Auto) [place] % (Auto) Eos % (Auto) Baso % (Auto) Gran # Lymph # (Auto) [place] # (Auto) Eos # (Auto) Baso # (Auto) PT INR APTT pCO2 55 H pO2 226.0 H HCO3 16.3 L ABG pH 7.08 L* ABG Total CO2 18.0 L ABG O2 Saturation 99.9 H ABG O2 Content 13.2 L ABG Base Excess -13.2 L ABG Hemoglobin 9.2 L ABG Carboxyhemoglobin 1.4 POC ABG HHb (Measured) 0.1 ABG Methemoglobin 1.1 ABG O2 Capacity 13.2 L ABG Potassium VBG pH VBG pCO2 VBG HCO3 VBG Total CO2 VBG O2 Sat (Calc) VBG Base Excess VBG Potassium Hgb O2 Saturation 97.4 Sodium Chloride Glucose Lactate Mechanical Rate FiO2 40.0 Tidal Volume PEEP Crit Value Called To Jorje romo Crit Value Called By Matthew Blood Gas Notified Time 606 Potassium Carbon Dioxide Anion Gap BUN Creatinine Est GFR ( Amer) Est GFR (Non-Af Amer) POC Glucose (mg/dL) < 20 L* 34 L* Random Glucose Calcium Phosphorus Magnesium Total Bilirubin AST ALT Alkaline Phosphatase Lactate Dehydrogenase Total Creatine Kinase CK-MB (CK-2) CK-MB (CK-2) % Troponin I NT-Pro-B Natriuret Pep Total Protein Albumin Globulin Albumin/Globulin Ratio Lipase TSH 3rd Generation Arterial Blood Potassium Venous Blood Potassium Acetaminophen Alcohol, Quantitative Blood Type Antibody Screen BBK History Checked 07/05/18 07/05/18 07/05/18 08:50 09:23 11:15 WBC RBC Hgb Hct MCV MCH MCHC RDW Plt Count MPV Gran % Lymph % (Auto) [place] % (Auto) Eos % (Auto) Baso % (Auto) Gran # Lymph # (Auto) [place] # (Auto) Eos # (Auto) Baso # (Auto) PT INR APTT pCO2 51 H pO2 52 352.0 H HCO3 22.9 ABG pH 7.26 L ABG Total CO2 24.5 ABG O2 Saturation 100.0 H ABG O2 Content ABG Base Excess -4.6 L ABG Hemoglobin ABG Carboxyhemoglobin POC ABG HHb (Measured) ABG Methemoglobin ABG O2 Capacity ABG Potassium 5.1 VBG pH 7.12 L* VBG pCO2 70.0 H* VBG HCO3 22.8 VBG Total CO2 24.9 VBG O2 Sat (Calc) 82.5 H VBG Base Excess -7.8 L VBG Potassium 5.9 H Hgb O2 Saturation Sodium 132.0 133.0 Chloride 93.0 L 99.0 Glucose 69 371 H Lactate 9.7 H* 6.3 H* Mechanical Rate 14 FiO2 21.0 100.0 Tidal Volume 350 PEEP 5 Crit Value Called To Maria Isabel melgar Crit Value Called By Geremias Evangelista Blood Gas Notified Time [id number] Potassium Carbon Dioxide Anion Gap BUN Creatinine Est GFR ( Amer) Est GFR (Non-Af Amer) POC Glucose (mg/dL) 20 L* Random Glucose Calcium Phosphorus Magnesium Total Bilirubin AST ALT Alkaline Phosphatase Lactate Dehydrogenase Total Creatine Kinase CK-MB (CK-2) CK-MB (CK-2) % Troponin I NT-Pro-B Natriuret Pep Total Protein Albumin Globulin Albumin/Globulin Ratio Lipase TSH 3rd Generation Arterial Blood Potassium 5.1 Venous Blood Potassium 5.9 H Acetaminophen Alcohol, Quantitative Blood Type Antibody Screen BBK History Checked
--- NOTE | 2018-07-05 13:44 | CP.PCM.CON ---
Past Patient History - Infectious Disease Hx of Infectious Diseases: None - Past Medical History & Family History Past Medical History?: Yes - Past Social History Smoking Status: Heavy Smoker > 10 Cigarettes Daily - CARDIAC Hx Cardiac Disorders: No - PULMONARY Hx Chronic Obstructive Pulmonary Disease (COPD): Yes Hx Emphysema: Yes Hx Pneumonia: Yes (d/c 11/27/17) - NEUROLOGICAL Hx Neurological Disorder: No - HEENT Hx HEENT Problems: No Other/Comment: 2- side by side nodule on left neck - RENAL Hx Chronic Kidney Disease: No - ENDOCRINE/METABOLIC Hx Endocrine Disorders: No - HEMATOLOGICAL/ONCOLOGICAL Hx Cancer: Yes (neck,back of tongue) - INTEGUMENTARY Hx Dermatological Problems: No - MUSCULOSKELETAL/RHEUMATOLOGICAL Hx Musculoskeletal Disorders: No Hx Falls: Yes - GASTROINTESTINAL Hx Gastrointestinal Disorders: No - GENITOURINARY/GYNECOLOGICAL Hx Genitourinary Disorders: No - PSYCHIATRIC Hx Psychophysiologic Disorder: No - SURGICAL HISTORY Hx Surgeries: No - ANESTHESIA Hx Anesthesia: No Meds Allergies/Adverse Reactions: Allergies Allergy/AdvReac Type Severity Reaction Status Date / Time No Known Allergies Allergy Verified 02/13/18 14:00 - Medications Medications: Current Medications Dexamethasone (Decadron Inj) 4 mg IVP Q4 [facility] Last Admin: 07/05/18 08:49 Dose: 4 mg Dextrose (Dextrose 50% Inj) 0 ml IV STAT PRN; Protocol PRN Reason: Hypoglycemia Protocol Last Admin: 07/05/18 06:00 Dose: 50 ml Dextrose (Dextrose 50% Inj) 0 ml IV STAT PRN; Protocol PRN Reason: Hypoglycemia Protocol Last Admin: 07/05/18 10:26 Dose: 50 ml Multivitamins/Vitamin C 10 ml/Thiamine HCl 100 mg/ Folic Acid 1 mg/ Sodium Chloride 1,011.2 mls @ 100 mls/hr IV DAILY KARINA Multivitamins/Vitamin C 10 ml/Thiamine HCl 100 mg/ Folic Acid 1 mg/ Sodium Chloride 1,011.2 mls @ 40 mls/hr IV .Q24H ONE Stop: 07/06/18 01:01 Last Admin: 07/05/18 01:44 Dose: 40 mls/hr Vasopressin 20 units/ Sodium (Chloride) 101 mls @ 9.09 mls/hr IV .Q11H7M KARINA; Protocol Last Admin: 07/05/18 08:45 Dose: 9.09 mls/hr Dextrose (Dextrose 10% In Water) 500 mls @ 50 mls/hr IV .Q10H KARINA Last Admin: 07/05/18 10:25 Dose: 50 mls/hr Norepinephrine Bitartrate 16 (mg/ Dextrose) 266 mls @ 3.99 mls/hr IV .Q24H KARINA; Protocol Last Admin: 07/05/18 11:30 Dose: 15 mcg/min, 14.96 mls/hr Sodium Bicarbonate 100 meq/ (Dextrose) 600 mls @ 40 mls/hr IV .Q15H KARINA Sodium Bicarbonate 100 meq/ (Dextrose) 600 mls @ 40 mls/hr IV .Q15H KARINA Pantoprazole Sodium (Protonix Inj) 40 mg IVP DAILY KARINA Last Admin: 07/05/18 09:00 Dose: 40 mg Results - Vital Signs Recent Vital Signs: Last Vital Signs Temp 98.4 F 07/05/18 10:00 Pulse 96 H 07/05/18 10:00 Resp 31 H 07/05/18 00:01 BP 139/76 07/05/18 10:00 Pulse Ox 95 07/05/18 10:00 - Labs Result Diagrams: 07/05/18 05:00 07/05/18 05:00 Labs: Laboratory Results - last 24 hr 07/04/18 07/04/18 07/04/18 17:24 17:29 17:29 WBC RBC Hgb Hct MCV MCH MCHC RDW Plt Count MPV Gran % Lymph % (Auto) [place] % (Auto) Eos % (Auto) Baso % (Auto) Gran # Lymph # (Auto) [place] # (Auto) Eos # (Auto) Baso # (Auto) PT 13.8 H INR 1.21 APTT 34.9 pCO2 pO2 71 H HCO3 ABG pH ABG Total CO2 ABG O2 Saturation ABG O2 Content ABG Base Excess ABG Hemoglobin ABG Carboxyhemoglobin POC ABG HHb (Measured) ABG Methemoglobin ABG O2 Capacity ABG Potassium VBG pH 6.97 L* VBG pCO2 60.0 VBG HCO3 13.8 L VBG Total CO2 15.6 L VBG O2 Sat (Calc) 89.1 H VBG Base Excess -18.4 L VBG Potassium 5.7 H Hgb O2 Saturation Sodium 122.0 L Chloride 83.0 L Glucose 445 H* D Lactate 10.4 H* Mechanical Rate FiO2 21.0 Tidal Volume PEEP Crit Value Called To Bren ruiz Crit Value Called By Atc Blood Gas Notified Time 1740 Potassium Carbon Dioxide Anion Gap BUN Creatinine Est GFR ( Amer) Est GFR (Non-Af Amer) POC Glucose (mg/dL) > 500 H* Random Glucose Calcium Phosphorus Magnesium Total Bilirubin AST ALT Alkaline Phosphatase Lactate Dehydrogenase Total Creatine Kinase CK-MB (CK-2) CK-MB (CK-2) % Troponin I NT-Pro-B Natriuret Pep Total Protein Albumin Globulin Albumin/Globulin Ratio Lipase TSH 3rd Generation Arterial Blood Potassium Venous Blood Potassium 5.7 H Acetaminophen Alcohol, Quantitative Blood Type Antibody Screen BBK History Checked 07/04/18 07/04/18 07/04/18 17:29 17:48 17:56 WBC 6.4 RBC 3.85 Hgb 10.4 L Hct 33.3 L MCV 86.5 MCH 27.0 MCHC 31.2 RDW 15.4 H Plt Count 121 MPV 10.8 Gran % 77.9 H Lymph % (Auto) 12.2 L [place] % (Auto) 9.7 H Eos % (Auto) 0.2 L Baso % (Auto) 0.0 Gran # 4.97 Lymph # (Auto) 0.8 L [place] # (Auto) 0.6 Eos # (Auto) 0.0 Baso # (Auto) 0.00 PT INR APTT pCO2 pO2 HCO3 ABG pH ABG Total CO2 ABG O2 Saturation ABG O2 Content ABG Base Excess ABG Hemoglobin ABG Carboxyhemoglobin POC ABG HHb (Measured) ABG Methemoglobin ABG O2 Capacity ABG Potassium VBG pH VBG pCO2 VBG HCO3 VBG Total CO2 VBG O2 Sat (Calc) VBG Base Excess VBG Potassium Hgb O2 Saturation Sodium 126 L Chloride 84 L Glucose Lactate Mechanical Rate FiO2 Tidal Volume PEEP Crit Value Called To Crit Value Called By Blood Gas Notified Time Potassium 5.7 H* Carbon Dioxide 16 L Anion Gap 32 H BUN 82 H Creatinine 5.7 H Est GFR ( Amer) 9 Est GFR (Non-Af Amer) 8 POC Glucose (mg/dL) Random Glucose 374 H* Calcium 8.6 Phosphorus Magnesium Total Bilirubin 0.7 AST 1460 H ALT 485 H Alkaline Phosphatase 67 Lactate Dehydrogenase Total Creatine Kinase 2084 H CK-MB (CK-2) 12.7 H CK-MB (CK-2) % 0.6 L Troponin I 0.24 H* NT-Pro-B Natriuret Pep 11107 H Total Protein 5.7 L Albumin 3.2 Globulin 2.5 Albumin/Globulin Ratio 1.3 Lipase 25 TSH 3rd Generation Arterial Blood Potassium Venous Blood Potassium Acetaminophen Alcohol, Quantitative Blood Type A POSITIVE Antibody Screen Negative BBK History Checked No verified bt 07/04/18 07/04/18 07/04/18 18:49 20:00 20:00 WBC RBC Hgb Hct MCV MCH MCHC RDW Plt Count MPV Gran % Lymph % (Auto) [place] % (Auto) Eos % (Auto) Baso % (Auto) Gran # Lymph # (Auto) [place] # (Auto) Eos # (Auto) Baso # (Auto) PT INR APTT pCO2 pO2 HCO3 ABG pH ABG Total CO2 ABG O2 Saturation ABG O2 Content ABG Base Excess ABG Hemoglobin ABG Carboxyhemoglobin POC ABG HHb (Measured) ABG Methemoglobin ABG O2 Capacity ABG Potassium VBG pH VBG pCO2 VBG HCO3 VBG Total CO2 VBG O2 Sat (Calc) VBG Base Excess VBG Potassium Hgb O2 Saturation Sodium Chloride Glucose Lactate Mechanical Rate FiO2 Tidal Volume PEEP Crit Value Called To Crit Value Called By Blood Gas Notified Time Potassium Carbon Dioxide Anion Gap BUN Creatinine Est GFR ( Amer) Est GFR (Non-Af Amer) POC Glucose (mg/dL) 123 H Random Glucose Calcium Phosphorus Magnesium Total Bilirubin AST ALT Alkaline Phosphatase Lactate Dehydrogenase Total Creatine Kinase CK-MB (CK-2) CK-MB (CK-2) % Troponin I NT-Pro-B Natriuret Pep Total Protein Albumin Globulin Albumin/Globulin Ratio Lipase TSH 3rd Generation Arterial Blood Potassium Venous Blood Potassium Acetaminophen < 10.0 L Alcohol, Quantitative < 10 Blood Type Antibody Screen BBK History Checked 07/04/18 07/04/18 07/04/18 20:00 20:09 20:17 WBC RBC Hgb Hct MCV MCH MCHC RDW Plt Count MPV Gran % Lymph % (Auto) [place] % (Auto) Eos % (Auto) Baso % (Auto) Gran # Lymph # (Auto) [place] # (Auto) Eos # (Auto) Baso # (Auto) PT INR APTT pCO2 54 H pO2 473.0 H HCO3 16.4 L ABG pH 7.09 L* ABG Total CO2 18.1 L ABG O2 Saturation 100.3 H ABG O2 Content 15.8 ABG Base Excess -13.2 L ABG Hemoglobin 10.4 L ABG Carboxyhemoglobin 1.2 POC ABG HHb (Measured) -0.3 L ABG Methemoglobin 0.5 ABG O2 Capacity 15.8 L ABG Potassium VBG pH VBG pCO2 VBG HCO3 VBG Total CO2 VBG O2 Sat (Calc) VBG Base Excess VBG Potassium Hgb O2 Saturation 98.7 H Sodium Chloride Glucose Lactate Mechanical Rate FiO2 100.0 Tidal Volume PEEP Crit Value Called To Jorge rn Crit Value Called By Matthew Blood Gas Notified Time 2018 Potassium Carbon Dioxide Anion Gap BUN Creatinine Est GFR ( Amer) Est GFR (Non-Af Amer) POC Glucose (mg/dL) 143 H Random Glucose Calcium Phosphorus 11.9 H Magnesium 2.7 H Total Bilirubin AST ALT Alkaline Phosphatase Lactate Dehydrogenase Total Creatine Kinase CK-MB (CK-2) CK-MB (CK-2) % Troponin I NT-Pro-B Natriuret Pep Total Protein Albumin Globulin Albumin/Globulin Ratio Lipase TSH 3rd Generation Arterial Blood Potassium Venous Blood Potassium Acetaminophen Alcohol, Quantitative Blood Type Antibody Screen BBK History Checked 07/04/18 07/04/18 07/04/18 23:20 23:20 23:20 WBC 3.4 L D RBC 3.91 Hgb 10.7 L Hct 34.1 L MCV 87.2 MCH 27.4 MCHC 31.4 RDW 15.3 H Plt Count 92 L MPV 9.6 Gran % Lymph % (Auto) [place] % (Auto) Eos % (Auto) Baso % (Auto) Gran # Lymph # (Auto) [place] # (Auto) Eos # (Auto) Baso # (Auto) PT INR APTT pCO2 pO2 44 HCO3 ABG pH ABG Total CO2 ABG O2 Saturation ABG O2 Content ABG Base Excess ABG Hemoglobin ABG Carboxyhemoglobin POC ABG HHb (Measured) ABG Methemoglobin ABG O2 Capacity ABG Potassium VBG pH 7.03 L* VBG pCO2 77.0 H* VBG HCO3 20.3 L VBG Total CO2 22.7 VBG O2 Sat (Calc) 66.5 H VBG Base Excess -11.8 L VBG Potassium 5.4 H Hgb O2 Saturation Sodium 130 L 127.0 L Chloride 89 L 90.0 L Glucose 161 H Lactate 8.2 H* Mechanical Rate FiO2 21.0 Tidal Volume PEEP Crit Value Called To cha Baldwin Crit Value Called By Jeevan Blood Gas Notified Time 2343 Potassium 5.3 H Carbon Dioxide 23 Anion Gap 24 H BUN 86 H Creatinine 5.3 H Est GFR ( Amer) 10 Est GFR (Non-Af Amer) 8 POC Glucose (mg/dL) Random Glucose 154 H Calcium 9.5 Phosphorus 11.0 H Magnesium 2.4 H Total Bilirubin 0.7 AST 2771 H ALT 571 H Alkaline Phosphatase 80 Lactate Dehydrogenase 7324 H Total Creatine Kinase 4669 H CK-MB (CK-2) 28.4 H CK-MB (CK-2) % 0.6 L Troponin I 0.31 H* D NT-Pro-B Natriuret Pep Total Protein 5.7 L Albumin 3.1 Globulin 2.6 Albumin/Globulin Ratio 1.2 Lipase TSH 3rd Generation Arterial Blood Potassium Venous Blood Potassium 5.4 H Acetaminophen Alcohol, Quantitative Blood Type Antibody Screen BBK History Checked 07/04/18 07/05/18 07/05/18 23:59 00:11 05:00 WBC RBC Hgb Hct MCV MCH MCHC RDW Plt Count MPV Gran % Lymph % (Auto) [place] % (Auto) Eos % (Auto) Baso % (Auto) Gran # Lymph # (Auto) [place] # (Auto) Eos # (Auto) Baso # (Auto) PT INR APTT pCO2 57 H pO2 556.0 H HCO3 18.1 L ABG pH 7.11 L* ABG Total CO2 19.8 L ABG O2 Saturation 100.2 H ABG O2 Content 17.0 ABG Base Excess -11.4 L ABG Hemoglobin 11.2 L ABG Carboxyhemoglobin 1.2 POC ABG HHb (Measured) -0.2 L ABG Methemoglobin 0.9 ABG O2 Capacity 17.0 ABG Potassium VBG pH VBG pCO2 VBG HCO3 VBG Total CO2 VBG O2 Sat (Calc) VBG Base Excess VBG Potassium Hgb O2 Saturation 98.1 H Sodium Chloride Glucose Lactate Mechanical Rate FiO2 100.0 Tidal Volume PEEP Crit Value Called To Agustina romo Crit Value Called By Geoff Blood Gas Notified Time 16 Potassium Carbon Dioxide Anion Gap BUN Creatinine Est GFR ( Amer) Est GFR (Non-Af Amer) POC Glucose (mg/dL) 176 H Random Glucose Calcium Phosphorus Magnesium Total Bilirubin AST ALT Alkaline Phosphatase Lactate Dehydrogenase Total Creatine Kinase CK-MB (CK-2) CK-MB (CK-2) % Troponin I NT-Pro-B Natriuret Pep Total Protein Albumin Globulin Albumin/Globulin Ratio Lipase TSH 3rd Generation 8.48 H Arterial Blood Potassium Venous Blood Potassium Acetaminophen Alcohol, Quantitative Blood Type Antibody Screen BBK History Checked 07/05/18 07/05/18 07/05/18 05:00 05:00 05:00 WBC 5.0 D RBC 3.44 L Hgb 9.2 L Hct 30.5 L MCV 88.7 MCH 26.7 MCHC 30.2 L RDW 15.3 H Plt Count 44 L* MPV 9.3 Gran % 57.5 Lymph % (Auto) 25.9 [place] % (Auto) 16.2 H Eos % (Auto) 0.2 L Baso % (Auto) 0.2 Gran # 2.87 Lymph # (Auto) 1.3 [place] # (Auto) 0.8 H Eos # (Auto) 0.0 Baso # (Auto) 0.01 PT INR APTT pCO2 pO2 33 HCO3 ABG pH ABG Total CO2 ABG O2 Saturation ABG O2 Content ABG Base Excess ABG Hemoglobin ABG Carboxyhemoglobin POC ABG HHb (Measured) ABG Methemoglobin ABG O2 Capacity ABG Potassium VBG pH 7.03 L* VBG pCO2 75.0 H* VBG HCO3 19.8 L VBG Total CO2 22.1 VBG O2 Sat (Calc) 50.8 VBG Base Excess -12.2 L VBG Potassium 6.4 H* Hgb O2 Saturation Sodium 136 133.0 Chloride 97 L 96.0 L Glucose 15 L* D Lactate 10.3 H* Mechanical Rate FiO2 21.0 Tidal Volume PEEP Crit Value Called To moncho Anthony Crit Value Called By Jeevan Blood Gas Notified Time 603 Potassium 6.4 H* D Carbon Dioxide 21 Anion Gap 24 H BUN 78 H Creatinine 4.6 H Est GFR ( Amer) 12 Est GFR (Non-Af Amer) 10 POC Glucose (mg/dL) Random Glucose < 20 L* D Calcium 7.5 L Phosphorus 10.0 H Magnesium 2.3 H Total Bilirubin 0.7 AST 4212 H ALT 1239 H Alkaline Phosphatase 61 Lactate Dehydrogenase 49274 H Total Creatine Kinase 3185 H CK-MB (CK-2) 26.0 H CK-MB (CK-2) % 0.8 L Troponin I 0.30 H* NT-Pro-B Natriuret Pep Total Protein 4.3 L Albumin 2.2 L Globulin 2.1 Albumin/Globulin Ratio 1.0 L Lipase TSH 3rd Generation Arterial Blood Potassium Venous Blood Potassium 6.4 H* Acetaminophen Alcohol, Quantitative Blood Type Antibody Screen BBK History Checked 07/05/18 07/05/18 07/05/18 05:50 06:09 07:41 WBC RBC Hgb Hct MCV MCH MCHC RDW Plt Count MPV Gran % Lymph % (Auto) [place] % (Auto) Eos % (Auto) Baso % (Auto) Gran # Lymph # (Auto) [place] # (Auto) Eos # (Auto) Baso # (Auto) PT INR APTT pCO2 55 H pO2 226.0 H HCO3 16.3 L ABG pH 7.08 L* ABG Total CO2 18.0 L ABG O2 Saturation 99.9 H ABG O2 Content 13.2 L ABG Base Excess -13.2 L ABG Hemoglobin 9.2 L ABG Carboxyhemoglobin 1.4 POC ABG HHb (Measured) 0.1 ABG Methemoglobin 1.1 ABG O2 Capacity 13.2 L ABG Potassium VBG pH VBG pCO2 VBG HCO3 VBG Total CO2 VBG O2 Sat (Calc) VBG Base Excess VBG Potassium Hgb O2 Saturation 97.4 Sodium Chloride Glucose Lactate Mechanical Rate FiO2 40.0 Tidal Volume PEEP Crit Value Called To Jorje romo Crit Value Called By Matthew Blood Gas Notified Time 606 Potassium Carbon Dioxide Anion Gap BUN Creatinine Est GFR ( Amer) Est GFR (Non-Af Amer) POC Glucose (mg/dL) < 20 L* 34 L* Random Glucose Calcium Phosphorus Magnesium Total Bilirubin AST ALT Alkaline Phosphatase Lactate Dehydrogenase Total Creatine Kinase CK-MB (CK-2) CK-MB (CK-2) % Troponin I NT-Pro-B Natriuret Pep Total Protein Albumin Globulin Albumin/Globulin Ratio Lipase TSH 3rd Generation Arterial Blood Potassium Venous Blood Potassium Acetaminophen Alcohol, Quantitative Blood Type Antibody Screen BBK History Checked 01/19/19 01/19/19 01/19/19 08:50 09:23 11:15 WBC RBC Hgb Hct MCV MCH MCHC RDW Plt Count MPV Gran % Lymph % (Auto) [place] % (Auto) Eos % (Auto) Baso % (Auto) Gran # Lymph # (Auto) [place] # (Auto) Eos # (Auto) Baso # (Auto) PT INR APTT pCO2 51 H pO2 52 352.0 H HCO3 22.9 ABG pH 7.26 L ABG Total CO2 24.5 ABG O2 Saturation 100.0 H ABG O2 Content ABG Base Excess -4.6 L ABG Hemoglobin ABG Carboxyhemoglobin POC ABG HHb (Measured) ABG Methemoglobin ABG O2 Capacity ABG Potassium 5.1 VBG pH 7.12 L* VBG pCO2 70.0 H* VBG HCO3 22.8 VBG Total CO2 24.9 VBG O2 Sat (Calc) 82.5 H VBG Base Excess -7.8 L VBG Potassium 5.9 H Hgb O2 Saturation Sodium 132.0 133.0 Chloride 93.0 L 99.0 Glucose 69 371 H Lactate 9.7 H* 6.3 H* Mechanical Rate 14 FiO2 21.0 100.0 Tidal Volume 350 PEEP 5 Crit Value Called To Maria Isabel melgar Crit Value Called By Geremias Evangelista Blood Gas Notified Time 270 3321 Potassium Carbon Dioxide Anion Gap BUN Creatinine Est GFR ( Amer) Est GFR (Non-Af Amer) POC Glucose (mg/dL) 20 L* Random Glucose Calcium Phosphorus Magnesium Total Bilirubin AST ALT Alkaline Phosphatase Lactate Dehydrogenase Total Creatine Kinase CK-MB (CK-2) CK-MB (CK-2) % Troponin I NT-Pro-B Natriuret Pep Total Protein Albumin Globulin Albumin/Globulin Ratio Lipase TSH 3rd Generation Arterial Blood Potassium 5.1 Venous Blood Potassium 5.9 H Acetaminophen Alcohol, Quantitative Blood Type Antibody Screen BBK History Checked
--- NOTE | 2018-07-05 13:49 | PN ---
DATE: 07/05/2018 SUBJECTIVE: The patient is unresponsive. Eyes fixed and dilated, on the ventilator with FIO2 of 100% requiring Levophed and vasopressin for her blood pressure and is at this point being started on D10 as well as bicarb drip. The patient is post CPR x2. At this time, she is a full code. PHYSICAL EXAMINATION: VITAL SIGNS: Her temperature is 95.5, her pulse is 94, respirations are 18 and BP is 80/45. SKIN: Warm and dry. HEENT: Head atraumatic, normocephalic. Eyes fixed and dilated. Ear, nose and throat seemed to be within normal limits. NECK: Supple. No JVD. No thyroid enlargement, no lymph nodes. HEART: Has regular rate and rhythm. Normal S1, S2. LUNGS: Reveal bilateral rhonchi. ABDOMEN: Soft. Decreased bowel sounds. GENITALIA AND RECTAL: Deferred. MUSCULOSKELETAL: No joint deformities. EXTREMITIES: Reveal trace lower extremity edema. NEUROLOGIC: The patient is unresponsive on the ventilator. LABORATORY DATA: The patient's white count is 5, hemoglobin is 9.2, hematocrit 30.5 with platelets of 44,000. As far as her VBG, her pH is 7.12, pCO2 is 70 and pO2 is 52. The patient's sodium is 136, her potassium 6.4, chloride 97, CO2 of 21 with a BUN of 78, creatinine of 4.6 and a glucose of 37. The patient's chest x-ray reveals no infiltrates, that is unofficial reading. 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 The patient has a history of head and neck carcinoma as well as chronic obstructive pulmonary disease, alcohol abuse, end-stage renal disease on hemodialysis and noted to have anemia and thrombocytopenia. The patient has respiratory failure on ventilator support. PLAN: We will continue with the ventilator at 100% and monitor O2 saturations and we will continue the aggressive pulmonary toilet. We will follow chest x-ray and arterial blood gases. The patient is being started on D10 drip as well as a bicarbonate drip. The patient has been given amps of dextrose x2 and has been given bicarbonate as well. She is on Decadron as well as Levophed, Protonix and vasopressin. The patient will be followed closely and treat aggressively along with the other consultants and the primary care doctor. Karel Patel MD
--- NOTE | 2018-07-05 14:52 | CP.PCM.CON ---
History of Present Illness - History of Present Illness History of Present Illness: Neurology Consultation Note: Consult requested by Dr. Yara Vallejo Mrs. Ulloa is a 63-year-old woman with a past medical history of COPD, ESRD, HTN, head and neck cancer, who suffered a cardiac arrest and was found down after an unknown duration. After ROSC, a CT scan of the head was obtained and showed diffuse hypoxic brain injury. The patient currently has no brainstem reflexes, her pupils are fixed and dilated. Family has decided to make the patient DNR/DNI, but she was already intubated in the field. Review of Systems - Review of Systems Systems not reviewed;Unavailable: Intubated Past Patient History - Infectious Disease Hx of Infectious Diseases: None - Past Medical History & Family History Past Medical History?: Yes - Past Social History Smoking Status: Heavy Smoker > 10 Cigarettes Daily - CARDIAC Hx Cardiac Disorders: No - PULMONARY Hx Chronic Obstructive Pulmonary Disease (COPD): Yes Hx Emphysema: Yes Hx Pneumonia: Yes (d/c 11/27/17) - NEUROLOGICAL Hx Neurological Disorder: No - HEENT Hx HEENT Problems: No Other/Comment: 2- side by side nodule on left neck - RENAL Hx Chronic Kidney Disease: No - ENDOCRINE/METABOLIC Hx Endocrine Disorders: No - HEMATOLOGICAL/ONCOLOGICAL Hx Cancer: Yes (neck,back of tongue) - INTEGUMENTARY Hx Dermatological Problems: No - MUSCULOSKELETAL/RHEUMATOLOGICAL Hx Musculoskeletal Disorders: No Hx Falls: Yes - GASTROINTESTINAL Hx Gastrointestinal Disorders: No - GENITOURINARY/GYNECOLOGICAL Hx Genitourinary Disorders: No - PSYCHIATRIC Hx Psychophysiologic Disorder: No - SURGICAL HISTORY Hx Surgeries: No - ANESTHESIA Hx Anesthesia: No Meds Allergies/Adverse Reactions: Allergies Allergy/AdvReac Type Severity Reaction Status Date / Time No Known Allergies Allergy Verified 02/13/18 14:00 - Medications Medications: Current Medications Dexamethasone (Decadron Inj) 4 mg IVP Q4 KARINA Last Admin: 07/05/18 12:00 Dose: 4 mg Dextrose (Dextrose 50% Inj) 0 ml IV STAT PRN; Protocol PRN Reason: Hypoglycemia Protocol Multivitamins/Vitamin C 10 ml/Thiamine HCl 100 mg/ Folic Acid 1 mg/ Sodium Chloride 1,011.2 mls @ 40 mls/hr IV .Q24H ONE Stop: 07/06/18 01:01 Last Admin: 07/05/18 01:44 Dose: 40 mls/hr Vasopressin 20 units/ Sodium (Chloride) 101 mls @ 9.09 mls/hr IV .Q11H7M KARINA; Protocol Last Admin: 07/05/18 08:45 Dose: 9.09 mls/hr Dextrose (Dextrose 10% In Water) 500 mls @ 50 mls/hr IV .Q10H KARINA Last Admin: 07/05/18 10:25 Dose: 50 mls/hr Norepinephrine Bitartrate 16 (mg/ Dextrose) 266 mls @ 3.99 mls/hr IV .Q24H KARINA; Protocol Last Admin: 07/05/18 11:30 Dose: 15 mcg/min, 14.96 mls/hr Sodium Bicarbonate 100 meq/ (Dextrose) 600 mls @ 40 mls/hr IV .Q15H KARINA Pantoprazole Sodium (Protonix Inj) 40 mg IVP DAILY [facility] Last Admin: 07/05/18 09:00 Dose: 40 mg Physical Exam - Neurological Exam Additional comments: Pupils are fixed, dilated. No brainstem reflexes. GCS 3T. Results - Vital Signs Recent Vital Signs: Last Vital Signs Temp 98.4 F 07/05/18 10:00 Pulse 116 H 07/05/18 14:00 Resp 31 H 07/05/18 00:01 BP 139/76 07/05/18 10:00 Pulse Ox 95 07/05/18 10:00 - Labs Result Diagrams: 07/05/18 05:00 07/05/18 05:00 Labs: Laboratory Results - last 24 hr 07/04/18 07/04/18 07/04/18 17:24 17:29 17:29 WBC RBC Hgb Hct MCV MCH MCHC RDW Plt Count MPV Gran % Lymph % (Auto) Traverse % (Auto) Eos % (Auto) Baso % (Auto) Gran # Lymph # (Auto) Traverse # (Auto) Eos # (Auto) Baso # (Auto) PT 13.8 H INR 1.21 APTT 34.9 pCO2 pO2 71 H HCO3 ABG pH ABG Total CO2 ABG O2 Saturation ABG O2 Content ABG Base Excess ABG Hemoglobin ABG Carboxyhemoglobin POC ABG HHb (Measured) ABG Methemoglobin ABG O2 Capacity ABG Potassium VBG pH 6.97 L* VBG pCO2 60.0 VBG HCO3 13.8 L VBG Total CO2 15.6 L VBG O2 Sat (Calc) 89.1 H VBG Base Excess -18.4 L VBG Potassium 5.7 H Hgb O2 Saturation Sodium 122.0 L Chloride 83.0 L Glucose 445 H* D Lactate 10.4 H* Mechanical Rate FiO2 21.0 Tidal Volume PEEP Crit Value Called To Bren ruiz Crit Value Called By Atc Blood Gas Notified Time 1740 Potassium Carbon Dioxide Anion Gap BUN Creatinine Est GFR ( Amer) Est GFR (Non-Af Amer) POC Glucose (mg/dL) > 500 H* Random Glucose Calcium Phosphorus Magnesium Total Bilirubin AST ALT Alkaline Phosphatase Lactate Dehydrogenase Total Creatine Kinase CK-MB (CK-2) CK-MB (CK-2) % Troponin I NT-Pro-B Natriuret Pep Total Protein Albumin Globulin Albumin/Globulin Ratio Lipase TSH 3rd Generation Arterial Blood Potassium Venous Blood Potassium 5.7 H Acetaminophen Alcohol, Quantitative Blood Type Antibody Screen BBK History Checked 07/04/18 07/04/18 07/04/18 17:29 17:48 17:56 WBC 6.4 RBC 3.85 Hgb 10.4 L Hct 33.3 L MCV 86.5 MCH 27.0 MCHC 31.2 RDW 15.4 H Plt Count 121 MPV 10.8 Gran % 77.9 H Lymph % (Auto) 12.2 L Traverse % (Auto) 9.7 H Eos % (Auto) 0.2 L Baso % (Auto) 0.0 Gran # 4.97 Lymph # (Auto) 0.8 L Traverse # (Auto) 0.6 Eos # (Auto) 0.0 Baso # (Auto) 0.00 PT INR APTT pCO2 pO2 HCO3 ABG pH ABG Total CO2 ABG O2 Saturation ABG O2 Content ABG Base Excess ABG Hemoglobin ABG Carboxyhemoglobin POC ABG HHb (Measured) ABG Methemoglobin ABG O2 Capacity ABG Potassium VBG pH VBG pCO2 VBG HCO3 VBG Total CO2 VBG O2 Sat (Calc) VBG Base Excess VBG Potassium Hgb O2 Saturation Sodium 126 L Chloride 84 L Glucose Lactate Mechanical Rate FiO2 Tidal Volume PEEP Crit Value Called To Crit Value Called By Blood Gas Notified Time Potassium 5.7 H* Carbon Dioxide 16 L Anion Gap 32 H BUN 82 H Creatinine 5.7 H Est GFR ( Amer) 9 Est GFR (Non-Af Amer) 8 POC Glucose (mg/dL) Random Glucose 374 H* Calcium 8.6 Phosphorus Magnesium Total Bilirubin 0.7 AST 1460 H ALT 485 H Alkaline Phosphatase 67 Lactate Dehydrogenase Total Creatine Kinase 2084 H CK-MB (CK-2) 12.7 H CK-MB (CK-2) % 0.6 L Troponin I 0.24 H* NT-Pro-B Natriuret Pep 78489 H Total Protein 5.7 L Albumin 3.2 Globulin 2.5 Albumin/Globulin Ratio 1.3 Lipase 25 TSH 3rd Generation Arterial Blood Potassium Venous Blood Potassium Acetaminophen Alcohol, Quantitative Blood Type A POSITIVE Antibody Screen Negative BBK History Checked No verified bt 07/04/18 07/04/18 07/04/18 18:49 20:00 20:00 WBC RBC Hgb Hct MCV MCH MCHC RDW Plt Count MPV Gran % Lymph % (Auto) Traverse % (Auto) Eos % (Auto) Baso % (Auto) Gran # Lymph # (Auto) Traverse # (Auto) Eos # (Auto) Baso # (Auto) PT INR APTT pCO2 pO2 HCO3 ABG pH ABG Total CO2 ABG O2 Saturation ABG O2 Content ABG Base Excess ABG Hemoglobin ABG Carboxyhemoglobin POC ABG HHb (Measured) ABG Methemoglobin ABG O2 Capacity ABG Potassium VBG pH VBG pCO2 VBG HCO3 VBG Total CO2 VBG O2 Sat (Calc) VBG Base Excess VBG Potassium Hgb O2 Saturation Sodium Chloride Glucose Lactate Mechanical Rate FiO2 Tidal Volume PEEP Crit Value Called To Crit Value Called By Blood Gas Notified Time Potassium Carbon Dioxide Anion Gap BUN Creatinine Est GFR ( Amer) Est GFR (Non-Af Amer) POC Glucose (mg/dL) 123 H Random Glucose Calcium Phosphorus Magnesium Total Bilirubin AST ALT Alkaline Phosphatase Lactate Dehydrogenase Total Creatine Kinase CK-MB (CK-2) CK-MB (CK-2) % Troponin I NT-Pro-B Natriuret Pep Total Protein Albumin Globulin Albumin/Globulin Ratio Lipase TSH 3rd Generation Arterial Blood Potassium Venous Blood Potassium Acetaminophen < 10.0 L Alcohol, Quantitative < 10 Blood Type Antibody Screen BBK History Checked 07/04/18 07/04/18 07/04/18 20:00 20:09 20:17 WBC RBC Hgb Hct MCV MCH MCHC RDW Plt Count MPV Gran % Lymph % (Auto) Traverse % (Auto) Eos % (Auto) Baso % (Auto) Gran # Lymph # (Auto) Traverse # (Auto) Eos # (Auto) Baso # (Auto) PT INR APTT pCO2 54 H pO2 473.0 H HCO3 16.4 L ABG pH 7.09 L* ABG Total CO2 18.1 L ABG O2 Saturation 100.3 H ABG O2 Content 15.8 ABG Base Excess -13.2 L ABG Hemoglobin 10.4 L ABG Carboxyhemoglobin 1.2 POC ABG HHb (Measured) -0.3 L ABG Methemoglobin 0.5 ABG O2 Capacity 15.8 L ABG Potassium VBG pH VBG pCO2 VBG HCO3 VBG Total CO2 VBG O2 Sat (Calc) VBG Base Excess VBG Potassium Hgb O2 Saturation 98.7 H Sodium Chloride Glucose Lactate Mechanical Rate FiO2 100.0 Tidal Volume PEEP Crit Value Called To Jorge rn Crit Value Called By Matthew Blood Gas Notified Time 2018 Potassium Carbon Dioxide Anion Gap BUN Creatinine Est GFR ( Amer) Est GFR (Non-Af Amer) POC Glucose (mg/dL) 143 H Random Glucose Calcium Phosphorus 11.9 H Magnesium 2.7 H Total Bilirubin AST ALT Alkaline Phosphatase Lactate Dehydrogenase Total Creatine Kinase CK-MB (CK-2) CK-MB (CK-2) % Troponin I NT-Pro-B Natriuret Pep Total Protein Albumin Globulin Albumin/Globulin Ratio Lipase TSH 3rd Generation Arterial Blood Potassium Venous Blood Potassium Acetaminophen Alcohol, Quantitative Blood Type Antibody Screen BBK History Checked 07/04/18 07/04/18 07/04/18 23:20 23:20 23:20 WBC 3.4 L D RBC 3.91 Hgb 10.7 L Hct 34.1 L MCV 87.2 MCH 27.4 MCHC 31.4 RDW 15.3 H Plt Count 92 L MPV 9.6 Gran % Lymph % (Auto) Traverse % (Auto) Eos % (Auto) Baso % (Auto) Gran # Lymph # (Auto) Traverse # (Auto) Eos # (Auto) Baso # (Auto) PT INR APTT pCO2 pO2 44 HCO3 ABG pH ABG Total CO2 ABG O2 Saturation ABG O2 Content ABG Base Excess ABG Hemoglobin ABG Carboxyhemoglobin POC ABG HHb (Measured) ABG Methemoglobin ABG O2 Capacity ABG Potassium VBG pH 7.03 L* VBG pCO2 77.0 H* VBG HCO3 20.3 L VBG Total CO2 22.7 VBG O2 Sat (Calc) 66.5 H VBG Base Excess -11.8 L VBG Potassium 5.4 H Hgb O2 Saturation Sodium 130 L 127.0 L Chloride 89 L 90.0 L Glucose 161 H Lactate 8.2 H* Mechanical Rate FiO2 21.0 Tidal Volume PEEP Crit Value Called To cha Baldwin Crit Value Called By Jeevan Blood Gas Notified Time 2343 Potassium 5.3 H Carbon Dioxide 23 Anion Gap 24 H BUN 86 H Creatinine 5.3 H Est GFR ( Amer) 10 Est GFR (Non-Af Amer) 8 POC Glucose (mg/dL) Random Glucose 154 H Calcium 9.5 Phosphorus 11.0 H Magnesium 2.4 H Total Bilirubin 0.7 AST 2771 H ALT 571 H Alkaline Phosphatase 80 Lactate Dehydrogenase 7324 H Total Creatine Kinase 4669 H CK-MB (CK-2) 28.4 H CK-MB (CK-2) % 0.6 L Troponin I 0.31 H* D NT-Pro-B Natriuret Pep Total Protein 5.7 L Albumin 3.1 Globulin 2.6 Albumin/Globulin Ratio 1.2 Lipase TSH 3rd Generation Arterial Blood Potassium Venous Blood Potassium 5.4 H Acetaminophen Alcohol, Quantitative Blood Type Antibody Screen BBK History Checked 07/04/18 07/05/18 07/05/18 23:59 00:11 05:00 WBC RBC Hgb Hct MCV MCH MCHC RDW Plt Count MPV Gran % Lymph % (Auto) Traverse % (Auto) Eos % (Auto) Baso % (Auto) Gran # Lymph # (Auto) Traverse # (Auto) Eos # (Auto) Baso # (Auto) PT INR APTT pCO2 57 H pO2 556.0 H HCO3 18.1 L ABG pH 7.11 L* ABG Total CO2 19.8 L ABG O2 Saturation 100.2 H ABG O2 Content 17.0 ABG Base Excess -11.4 L ABG Hemoglobin 11.2 L ABG Carboxyhemoglobin 1.2 POC ABG HHb (Measured) -0.2 L ABG Methemoglobin 0.9 ABG O2 Capacity 17.0 ABG Potassium VBG pH VBG pCO2 VBG HCO3 VBG Total CO2 VBG O2 Sat (Calc) VBG Base Excess VBG Potassium Hgb O2 Saturation 98.1 H Sodium Chloride Glucose Lactate Mechanical Rate FiO2 100.0 Tidal Volume PEEP Crit Value Called To Agustina romo Crit Value Called By Geoff Blood Gas Notified Time 16 Potassium Carbon Dioxide Anion Gap BUN Creatinine Est GFR ( Amer) Est GFR (Non-Af Amer) POC Glucose (mg/dL) 176 H Random Glucose Calcium Phosphorus Magnesium Total Bilirubin AST ALT Alkaline Phosphatase Lactate Dehydrogenase Total Creatine Kinase CK-MB (CK-2) CK-MB (CK-2) % Troponin I NT-Pro-B Natriuret Pep Total Protein Albumin Globulin Albumin/Globulin Ratio Lipase TSH 3rd Generation 8.48 H Arterial Blood Potassium Venous Blood Potassium Acetaminophen Alcohol, Quantitative Blood Type Antibody Screen BBK History Checked 07/05/18 07/05/18 07/05/18 05:00 05:00 05:00 WBC 5.0 D RBC 3.44 L Hgb 9.2 L Hct 30.5 L MCV 88.7 MCH 26.7 MCHC 30.2 L RDW 15.3 H Plt Count 44 L* MPV 9.3 Gran % 57.5 Lymph % (Auto) 25.9 Traverse % (Auto) 16.2 H Eos % (Auto) 0.2 L Baso % (Auto) 0.2 Gran # 2.87 Lymph # (Auto) 1.3 Traverse # (Auto) 0.8 H Eos # (Auto) 0.0 Baso # (Auto) 0.01 PT INR APTT pCO2 pO2 33 HCO3 ABG pH ABG Total CO2 ABG O2 Saturation ABG O2 Content ABG Base Excess ABG Hemoglobin ABG Carboxyhemoglobin POC ABG HHb (Measured) ABG Methemoglobin ABG O2 Capacity ABG Potassium VBG pH 7.03 L* VBG pCO2 75.0 H* VBG HCO3 19.8 L VBG Total CO2 22.1 VBG O2 Sat (Calc) 50.8 VBG Base Excess -12.2 L VBG Potassium 6.4 H* Hgb O2 Saturation Sodium 136 133.0 Chloride 97 L 96.0 L Glucose 15 L* D Lactate 10.3 H* Mechanical Rate FiO2 21.0 Tidal Volume PEEP Crit Value Called To moncho Anthony Crit Value Called By Jeevan Blood Gas Notified Time 603 Potassium 6.4 H* D Carbon Dioxide 21 Anion Gap 24 H BUN 78 H Creatinine 4.6 H Est GFR ( Amer) 12 Est GFR (Non-Af Amer) 10 POC Glucose (mg/dL) Random Glucose < 20 L* D Calcium 7.5 L Phosphorus 10.0 H Magnesium 2.3 H Total Bilirubin 0.7 AST 4212 H ALT 1239 H Alkaline Phosphatase 61 Lactate Dehydrogenase 91172 H Total Creatine Kinase 3185 H CK-MB (CK-2) 26.0 H CK-MB (CK-2) % 0.8 L Troponin I 0.30 H* NT-Pro-B Natriuret Pep Total Protein 4.3 L Albumin 2.2 L Globulin 2.1 Albumin/Globulin Ratio 1.0 L Lipase TSH 3rd Generation Arterial Blood Potassium Venous Blood Potassium 6.4 H* Acetaminophen Alcohol, Quantitative Blood Type Antibody Screen BBK History Checked 07/05/18 07/05/18 07/05/18 05:50 06:09 07:41 WBC RBC Hgb Hct MCV MCH MCHC RDW Plt Count MPV Gran % Lymph % (Auto) Traverse % (Auto) Eos % (Auto) Baso % (Auto) Gran # Lymph # (Auto) Traverse # (Auto) Eos # (Auto) Baso # (Auto) PT INR APTT pCO2 55 H pO2 226.0 H HCO3 16.3 L ABG pH 7.08 L* ABG Total CO2 18.0 L ABG O2 Saturation 99.9 H ABG O2 Content 13.2 L ABG Base Excess -13.2 L ABG Hemoglobin 9.2 L ABG Carboxyhemoglobin 1.4 POC ABG HHb (Measured) 0.1 ABG Methemoglobin 1.1 ABG O2 Capacity 13.2 L ABG Potassium VBG pH VBG pCO2 VBG HCO3 VBG Total CO2 VBG O2 Sat (Calc) VBG Base Excess VBG Potassium Hgb O2 Saturation 97.4 Sodium Chloride Glucose Lactate Mechanical Rate FiO2 40.0 Tidal Volume PEEP Crit Value Called To Jorje romo Crit Value Called By Matthew Blood Gas Notified Time 606 Potassium Carbon Dioxide Anion Gap BUN Creatinine Est GFR ( Amer) Est GFR (Non-Af Amer) POC Glucose (mg/dL) < 20 L* 34 L* Random Glucose Calcium Phosphorus Magnesium Total Bilirubin AST ALT Alkaline Phosphatase Lactate Dehydrogenase Total Creatine Kinase CK-MB (CK-2) CK-MB (CK-2) % Troponin I NT-Pro-B Natriuret Pep Total Protein Albumin Globulin Albumin/Globulin Ratio Lipase TSH 3rd Generation Arterial Blood Potassium Venous Blood Potassium Acetaminophen Alcohol, Quantitative Blood Type Antibody Screen BBK History Checked 07/05/18 07/05/18 07/05/18 08:50 09:23 11:15 WBC RBC Hgb Hct MCV MCH MCHC RDW Plt Count MPV Gran % Lymph % (Auto) Traverse % (Auto) Eos % (Auto) Baso % (Auto) Gran # Lymph # (Auto) Traverse # (Auto) Eos # (Auto) Baso # (Auto) PT INR APTT pCO2 51 H pO2 52 352.0 H HCO3 22.9 ABG pH 7.26 L ABG Total CO2 24.5 ABG O2 Saturation 100.0 H ABG O2 Content ABG Base Excess -4.6 L ABG Hemoglobin ABG Carboxyhemoglobin POC ABG HHb (Measured) ABG Methemoglobin ABG O2 Capacity ABG Potassium 5.1 VBG pH 7.12 L* VBG pCO2 70.0 H* VBG HCO3 22.8 VBG Total CO2 24.9 VBG O2 Sat (Calc) 82.5 H VBG Base Excess -7.8 L VBG Potassium 5.9 H Hgb O2 Saturation Sodium 132.0 133.0 Chloride 93.0 L 99.0 Glucose 69 371 H Lactate 9.7 H* 6.3 H* Mechanical Rate 14 FiO2 21.0 100.0 Tidal Volume 350 PEEP 5 Crit Value Called To Maria Isabel melgar Crit Value Called By Geremias Evangelista Blood Gas Notified Time [id number] Potassium Carbon Dioxide Anion Gap BUN Creatinine Est GFR ( Amer) Est GFR (Non-Af Amer) POC Glucose (mg/dL) 20 L* Random Glucose Calcium Phosphorus Magnesium Total Bilirubin AST ALT Alkaline Phosphatase Lactate Dehydrogenase Total Creatine Kinase CK-MB (CK-2) CK-MB (CK-2) % Troponin I NT-Pro-B Natriuret Pep Total Protein Albumin Globulin Albumin/Globulin Ratio Lipase TSH 3rd Generation Arterial Blood Potassium 5.1 Venous Blood Potassium 5.9 H Acetaminophen Alcohol, Quantitative Blood Type Antibody Screen BBK History Checked 07/05/18 07/05/18 12:33 13:29 WBC RBC Hgb Hct MCV MCH MCHC RDW Plt Count MPV Gran % Lymph % (Auto) Traverse % (Auto) Eos % (Auto) Baso % (Auto) Gran # Lymph # (Auto) Traverse # (Auto) Eos # (Auto) Baso # (Auto) PT INR APTT pCO2 pO2 HCO3 ABG pH ABG Total CO2 ABG O2 Saturation ABG O2 Content ABG Base Excess ABG Hemoglobin ABG Carboxyhemoglobin POC ABG HHb (Measured) ABG Methemoglobin ABG O2 Capacity ABG Potassium VBG pH VBG pCO2 VBG HCO3 VBG Total CO2 VBG O2 Sat (Calc) VBG Base Excess VBG Potassium Hgb O2 Saturation Sodium Chloride Glucose Lactate Mechanical Rate FiO2 Tidal Volume PEEP Crit Value Called To Crit Value Called By Blood Gas Notified Time Potassium Carbon Dioxide Anion Gap BUN Creatinine Est GFR ( Amer) Est GFR (Non-Af Amer) POC Glucose (mg/dL) < 20 L* 55 L Random Glucose Calcium Phosphorus Magnesium Total Bilirubin AST ALT Alkaline Phosphatase Lactate Dehydrogenase Total Creatine Kinase CK-MB (CK-2) CK-MB (CK-2) % Troponin I NT-Pro-B Natriuret Pep Total Protein Albumin Globulin Albumin/Globulin Ratio Lipase TSH 3rd Generation Arterial Blood Potassium Venous Blood Potassium Acetaminophen Alcohol, Quantitative Blood Type Antibody Screen BBK History Checked Assessment & Plan - Assessment and Plan (Free Text) Assessment: The patient has suffered a severe anoxic brain injury. Very poor prognosis. The lack of cortical and brainstem function is consistent with brain . No further recommendations from a neurological perspective at this time. Thank you for this consultation.
--- NOTE | 2018-07-05 14:53 | RAD ---
Date of service: 07/05/2018 HISTORY: intubated COMPARISON: 07/04/2018 FINDINGS: LUNGS: Pulmonary hyperinflation. Consistent with emphysema. No acute infiltrate. PLEURA: No significant pleural effusion identified, no pneumothorax apparent. CARDIOVASCULAR: No aortic atherosclerotic calcification present. Normal cardiac size. Right tunneled central venous dialysis catheter. ET tube unchanged. OSSEOUS STRUCTURES: No significant abnormalities. VISUALIZED UPPER ABDOMEN: Normal. OTHER FINDINGS: None. IMPRESSION: No active disease.
--- NOTE | 2018-07-05 15:28 | CP.PCM.PCO ---
Physician Communication Note - Physician Communication Note Physician Communication Note: Patient
--- NOTE | 2018-07-05 15:29 | CP.CCUPN ---
CCU Subjective - Physician Review Subjective (Free Text): 07/05/18 15:28 Patient is unable to have conversation regarding code status as she is post cardiac arrest intubated and not on sedation with no response to verbal or painful stimuli. Patient's daughter who is closest next of kin, Frances Diaz was contacted and conversation regarding goals of care were conducted. Ms. Diaz was updated on the clinical status of her mother and along with her and other conversations with family that she conducted as well as myself they decided to make patient DNR. Two ICU nurses were present for over the phone confirmation. DNR paperwork was placed in chart. CCU Objective - Vital Signs / Intake & Output Vital Signs (Last 4 hours): Vital Signs Pulse 07/05/18 14:00 116 H Intake and Output (Last 8hrs): Intake & Output 07/05/18 07/05/18 07/05/18 06:59 14:59 22:59 Intake Total 2110 Output Total 100 Balance 2009 Weight 100 lb Intake: IV 2109 Right Femoral 2000 Oral 0 Output: Urine 0 Urethral ([facility]) 0 Emesis 100 Other: # Bowel Movements 1 - Medications Active Medications: Active Medications Generic Name Dose Route Start Last Admin Trade Name Freq PRN Reason Stop Dose Admin Dexamethasone 4 mg 07/05/18 00:00 07/05/18 12:00 Decadron Inj IVP 4 mg Q4 KARINA Administration Dextrose 0 ml 07/05/18 14:31 07/05/18 12:05 Dextrose 50% Inj IV 50 ml STAT PRN Administration Hypoglycemia Protocol Protocol Multivitamins/Vitamin C 10 ml/ 1,011.2 mls @ 40 mls/hr 07/05/18 01:02 07/05/18 01:44 Thiamine HCl 100 mg/ Folic IV 07/06/18 01:01 40 mls/hr Acid 1 mg/ Sodium Chloride .Q24H ONE Administration Vasopressin 20 units/ Sodium 101 mls @ 9.09 mls/hr 07/05/18 08:30 07/05/18 08:45 Chloride IV 9.09 mls/hr .Q11H7M KARINA Administration Protocol 0.03 U/MIN Dextrose 500 mls @ 50 mls/hr 07/05/18 09:56 07/05/18 10:25 Dextrose 10% In Water IV 50 mls/hr .Q10H KARINA Administration Norepinephrine Bitartrate 16 266 mls @ 3.99 mls/hr 07/05/18 11:30 07/05/18 11:30 mg/ Dextrose IV 15 mcg/min .Q24H KARINA 14.96 mls/hr Administration Protocol 4 MCG/MIN Sodium Bicarbonate 100 meq/ 600 mls @ 40 mls/hr 07/05/18 13:00 Dextrose IV .Q15H KARINA Pantoprazole Sodium 40 mg 07/05/18 10:00 07/05/18 09:00 Protonix Inj IVP 40 mg DAILY KARINA Administration - Patient Studies Lab Studies: Lab Studies 07/05/18 07/05/18 07/05/18 Range/Units 13:29 12:33 11:15 WBC (4.5-11.0) 10^3/uL RBC (3.5-6.1) 10^6/uL Hgb (12.0-16.0) g/dL Hct (36.0-48.0) % MCV (80.0-105.0) fl MCH (25.0-35.0) pg MCHC (31.0-37.0) g/dl RDW (11.5-14.5) % Plt Count (120.0-450.0) 10^3/uL MPV (7.0-11.0) fl Gran % (50.0-68.0) % Lymph % (Auto) (22.0-35.0) % [place] % (Auto) (1.0-6.0) % Eos % (Auto) (1.5-5.0) % Baso % (Auto) (0.0-3.0) % Gran # (1.4-6.5) Lymph # (Auto) (1.2-3.4) [place] # (Auto) (0.1-0.6) Eos # (Auto) (0.0-0.7) Baso # (Auto) (0.0-2.0) K/mm3 PT (9.4-12.5) SECONDS INR APTT (25.1-36.5) Seconds pCO2 51 H (35-45) mm/Hg pO2 352.0 H (30-55) mm/Hg HCO3 22.9 (21-28) mmol/L ABG pH 7.26 L (7.35-7.45) ABG Total CO2 24.5 (22-28) mmol.L ABG O2 Saturation 100.0 H (95-98) % ABG O2 Content (15-23) ML/dl ABG Base Excess -4.6 L (-2.0-3.0) mmol/L ABG Hemoglobin (11.7-17.4) g/dL ABG Carboxyhemoglobin (0.5-1.5) % POC ABG HHb (Measured) (0-5) % ABG Methemoglobin (0.0-3.0) % ABG O2 Capacity (16-24) mL/dl ABG Potassium 5.1 (3.6-5.2) mmol/L VBG pH (7.32-7.43) VBG pCO2 (40-60) VBG HCO3 (21-28) mmol/l VBG Total CO2 (22-28) mmol.L VBG O2 Sat (Calc) (40-65) % VBG Base Excess (0.0-2.0) mmol/L VBG Potassium (3.6-5.2) mmol/L Hgb O2 Saturation (95.0-98.0) % Sodium 133.0 (132-148) mmol/L Chloride 99.0 (98-107) mmol/L Glucose 371 H (65-105) mg/dl Lactate 6.3 H* (0.7-2.1) mmol/L Mechanical Rate 14 FiO2 100.0 % Tidal Volume 350 PEEP 5 Crit Value Called To talia Crit Value Called By Tonja Blood Gas Notified Time 1122 Potassium (3.6-5.0) mmol/L Carbon Dioxide (21-33) mmol/L Anion Gap (10-20) BUN (7-21) mg/dL Creatinine (0.7-1.2) mg/dl Est GFR ( Amer) Est GFR (Non-Af Amer) POC Glucose (mg/dL) 55 L < 20 L* (65-110) mg/dL Random Glucose (70-110) mg/dL Calcium (8.4-10.5) mg/dL Phosphorus (2.5-4.5) mg/dL Magnesium (1.7-2.2) mg/dL Total Bilirubin (0.2-1.3) mg/dL AST (14-36) U/L ALT (7-56) U/L Alkaline Phosphatase (38-126) U/L Lactate Dehydrogenase (333-699) U/L Total Creatine Kinase (35-230) U/L CK-MB (CK-2) (0.0-3.6) ng/mL CK-MB (CK-2) % (2.5-3.0) % Troponin I ng/mL NT-Pro-B Natriuret Pep (0-450) pg/mL Total Protein (5.8-8.3) g/dL Albumin (3.0-4.8) g/dL Globulin gm/dL Albumin/Globulin Ratio (1.1-1.8) Lipase (23-300) U/L TSH 3rd Generation (0.46-4.68) mIU/mL Arterial Blood Potassium 5.1 (3.6-5.2) mmol/L Venous Blood Potassium (3.6-5.2) mmol/L Acetaminophen (10.0-20.0) ug/ml Alcohol, Quantitative (0-10) mg/dL Blood Type Antibody Screen BBK History Checked 07/05/18 07/05/18 07/05/18 Range/Units 09:23 08:50 07:41 WBC (4.5-11.0) 10^3/uL RBC (3.5-6.1) 10^6/uL Hgb (12.0-16.0) g/dL Hct (36.0-48.0) % MCV (80.0-105.0) fl MCH (25.0-35.0) pg MCHC (31.0-37.0) g/dl RDW (11.5-14.5) % Plt Count (120.0-450.0) 10^3/uL MPV (7.0-11.0) fl Gran % (50.0-68.0) % Lymph % (Auto) (22.0-35.0) % [place] % (Auto) (1.0-6.0) % Eos % (Auto) (1.5-5.0) % Baso % (Auto) (0.0-3.0) % Gran # (1.4-6.5) Lymph # (Auto) (1.2-3.4) [place] # (Auto) (0.1-0.6) Eos # (Auto) (0.0-0.7) Baso # (Auto) (0.0-2.0) K/mm3 PT (9.4-12.5) SECONDS INR APTT (25.1-36.5) Seconds pCO2 (35-45) mm/Hg pO2 52 (30-55) mm/Hg HCO3 (21-28) mmol/L ABG pH (7.35-7.45) ABG Total CO2 (22-28) mmol.L ABG O2 Saturation (95-98) % ABG O2 Content (15-23) ML/dl ABG Base Excess (-2.0-3.0) mmol/L ABG Hemoglobin (11.7-17.4) g/dL ABG Carboxyhemoglobin (0.5-1.5) % POC ABG HHb (Measured) (0-5) % ABG Methemoglobin (0.0-3.0) % ABG O2 Capacity (16-24) mL/dl ABG Potassium (3.6-5.2) mmol/L VBG pH 7.12 L* (7.32-7.43) VBG pCO2 70.0 H* (40-60) VBG HCO3 22.8 (21-28) mmol/l VBG Total CO2 24.9 (22-28) mmol.L VBG O2 Sat (Calc) 82.5 H (40-65) % VBG Base Excess -7.8 L (0.0-2.0) mmol/L VBG Potassium 5.9 H (3.6-5.2) mmol/L Hgb O2 Saturation (95.0-98.0) % Sodium 132.0 (132-148) mmol/L Chloride 93.0 L (98-107) mmol/L Glucose 69 (65-105) mg/dl Lactate 9.7 H* (0.7-2.1) mmol/L Mechanical Rate FiO2 21.0 % Tidal Volume PEEP Crit Value Called To Maria Isabel ojeda Crit Value Called By [facility] Blood Gas Notified Time 929 Potassium (3.6-5.0) mmol/L Carbon Dioxide (21-33) mmol/L Anion Gap (10-20) BUN (7-21) mg/dL Creatinine (0.7-1.2) mg/dl Est GFR ( Amer) Est GFR (Non-Af Amer) POC Glucose (mg/dL) 20 L* 34 L* (65-110) mg/dL Random Glucose (70-110) mg/dL Calcium (8.4-10.5) mg/dL Phosphorus (2.5-4.5) mg/dL Magnesium (1.7-2.2) mg/dL Total Bilirubin (0.2-1.3) mg/dL AST (14-36) U/L ALT (7-56) U/L Alkaline Phosphatase (38-126) U/L Lactate Dehydrogenase (333-699) U/L Total Creatine Kinase (35-230) U/L CK-MB (CK-2) (0.0-3.6) ng/mL CK-MB (CK-2) % (2.5-3.0) % Troponin I ng/mL NT-Pro-B Natriuret Pep (0-450) pg/mL Total Protein (5.8-8.3) g/dL Albumin (3.0-4.8) g/dL Globulin gm/dL Albumin/Globulin Ratio (1.1-1.8) Lipase (23-300) U/L TSH 3rd Generation (0.46-4.68) mIU/mL Arterial Blood Potassium (3.6-5.2) mmol/L Venous Blood Potassium 5.9 H (3.6-5.2) mmol/L Acetaminophen (10.0-20.0) ug/ml Alcohol, Quantitative (0-10) mg/dL Blood Type Antibody Screen BBK History Checked 07/05/18 07/05/18 07/05/18 Range/Units 06:09 05:50 05:00 WBC (4.5-11.0) 10^3/uL RBC (3.5-6.1) 10^6/uL Hgb (12.0-16.0) g/dL Hct (36.0-48.0) % MCV (80.0-105.0) fl MCH (25.0-35.0) pg MCHC (31.0-37.0) g/dl RDW (11.5-14.5) % Plt Count (120.0-450.0) 10^3/uL MPV (7.0-11.0) fl Gran % (50.0-68.0) % Lymph % (Auto) (22.0-35.0) % [place] % (Auto) (1.0-6.0) % Eos % (Auto) (1.5-5.0) % Baso % (Auto) (0.0-3.0) % Gran # (1.4-6.5) Lymph # (Auto) (1.2-3.4) [place] # (Auto) (0.1-0.6) Eos # (Auto) (0.0-0.7) Baso # (Auto) (0.0-2.0) K/mm3 PT (9.4-12.5) SECONDS INR APTT (25.1-36.5) Seconds pCO2 55 H (35-45) mm/Hg pO2 226.0 H 33 (30-55) mm/Hg HCO3 16.3 L (21-28) mmol/L ABG pH 7.08 L* (7.35-7.45) ABG Total CO2 18.0 L (22-28) mmol.L ABG O2 Saturation 99.9 H (95-98) % ABG O2 Content 13.2 L (15-23) ML/dl ABG Base Excess -13.2 L (-2.0-3.0) mmol/L ABG Hemoglobin 9.2 L (11.7-17.4) g/dL ABG Carboxyhemoglobin 1.4 (0.5-1.5) % POC ABG HHb (Measured) 0.1 (0-5) % ABG Methemoglobin 1.1 (0.0-3.0) % ABG O2 Capacity 13.2 L (16-24) mL/dl ABG Potassium (3.6-5.2) mmol/L VBG pH 7.03 L* (7.32-7.43) VBG pCO2 75.0 H* (40-60) VBG HCO3 19.8 L (21-28) mmol/l VBG Total CO2 22.1 (22-28) mmol.L VBG O2 Sat (Calc) 50.8 (40-65) % VBG Base Excess -12.2 L (0.0-2.0) mmol/L VBG Potassium 6.4 H* (3.6-5.2) mmol/L Hgb O2 Saturation 97.4 (95.0-98.0) % Sodium 133.0 (132-148) mmol/L Chloride 96.0 L (98-107) mmol/L Glucose 15 L* D (65-105) mg/dl Lactate 10.3 H* (0.7-2.1) mmol/L Mechanical Rate FiO2 40.0 21.0 % Tidal Volume PEEP Crit Value Called To Jorje rn B0bby,ivan Crit Value Called By Matthew Chew Blood Gas Notified Time 606 603 Potassium (3.6-5.0) mmol/L Carbon Dioxide (21-33) mmol/L Anion Gap (10-20) BUN (7-21) mg/dL Creatinine (0.7-1.2) mg/dl Est GFR ( Amer) Est GFR (Non-Af Amer) POC Glucose (mg/dL) < 20 L* (65-110) mg/dL Random Glucose (70-110) mg/dL Calcium (8.4-10.5) mg/dL Phosphorus (2.5-4.5) mg/dL Magnesium (1.7-2.2) mg/dL Total Bilirubin (0.2-1.3) mg/dL AST (14-36) U/L ALT (7-56) U/L Alkaline Phosphatase (38-126) U/L Lactate Dehydrogenase (333-699) U/L Total Creatine Kinase (35-230) U/L CK-MB (CK-2) (0.0-3.6) ng/mL CK-MB (CK-2) % (2.5-3.0) % Troponin I ng/mL NT-Pro-B Natriuret Pep (0-450) pg/mL Total Protein (5.8-8.3) g/dL Albumin (3.0-4.8) g/dL Globulin gm/dL Albumin/Globulin Ratio (1.1-1.8) Lipase (23-300) U/L TSH 3rd Generation (0.46-4.68) mIU/mL Arterial Blood Potassium (3.6-5.2) mmol/L Venous Blood Potassium 6.4 H* (3.6-5.2) mmol/L Acetaminophen (10.0-20.0) ug/ml Alcohol, Quantitative (0-10) mg/dL Blood Type Antibody Screen BBK History Checked 07/05/18 07/05/18 07/05/18 Range/Units 05:00 05:00 05:00 WBC 5.0 D (4.5-11.0) 10^3/uL RBC 3.44 L (3.5-6.1) 10^6/uL Hgb 9.2 L (12.0-16.0) g/dL Hct 30.5 L (36.0-48.0) % MCV 88.7 (80.0-105.0) fl MCH 26.7 (25.0-35.0) pg MCHC 30.2 L (31.0-37.0) g/dl RDW 15.3 H (11.5-14.5) % Plt Count 44 L* (120.0-450.0) 10^3/uL MPV 9.3 (7.0-11.0) fl Gran % 57.5 (50.0-68.0) % Lymph % (Auto) 25.9 (22.0-35.0) % [place] % (Auto) 16.2 H (1.0-6.0) % Eos % (Auto) 0.2 L (1.5-5.0) % Baso % (Auto) 0.2 (0.0-3.0) % Gran # 2.87 (1.4-6.5) Lymph # (Auto) 1.3 (1.2-3.4) [place] # (Auto) 0.8 H (0.1-0.6) Eos # (Auto) 0.0 (0.0-0.7) Baso # (Auto) 0.01 (0.0-2.0) K/mm3 PT (9.4-12.5) SECONDS INR APTT (25.1-36.5) Seconds pCO2 (35-45) mm/Hg pO2 (30-55) mm/Hg HCO3 (21-28) mmol/L ABG pH (7.35-7.45) ABG Total CO2 (22-28) mmol.L ABG O2 Saturation (95-98) % ABG O2 Content (15-23) ML/dl ABG Base Excess (-2.0-3.0) mmol/L ABG Hemoglobin (11.7-17.4) g/dL ABG Carboxyhemoglobin (0.5-1.5) % POC ABG HHb (Measured) (0-5) % ABG Methemoglobin (0.0-3.0) % ABG O2 Capacity (16-24) mL/dl ABG Potassium (3.6-5.2) mmol/L VBG pH (7.32-7.43) VBG pCO2 (40-60) VBG HCO3 (21-28) mmol/l VBG Total CO2 (22-28) mmol.L VBG O2 Sat (Calc) (40-65) % VBG Base Excess (0.0-2.0) mmol/L VBG Potassium (3.6-5.2) mmol/L Hgb O2 Saturation (95.0-98.0) % Sodium 136 (132-148) mmol/L Chloride 97 L (98-107) mmol/L Glucose (65-105) mg/dl Lactate (0.7-2.1) mmol/L Mechanical Rate FiO2 % Tidal Volume PEEP Crit Value Called To Crit Value Called By Blood Gas Notified Time Potassium 6.4 H* D (3.6-5.0) mmol/L Carbon Dioxide 21 (21-33) mmol/L Anion Gap 24 H (10-20) BUN 78 H (7-21) mg/dL Creatinine 4.6 H (0.7-1.2) mg/dl Est GFR ( Amer) 12 Est GFR (Non-Af Amer) 10 POC Glucose (mg/dL) (65-110) mg/dL Random Glucose < 20 L* D (70-110) mg/dL Calcium 7.5 L (8.4-10.5) mg/dL Phosphorus 10.0 H (2.5-4.5) mg/dL Magnesium 2.3 H (1.7-2.2) mg/dL Total Bilirubin 0.7 (0.2-1.3) mg/dL AST 4212 H (14-36) U/L ALT 1239 H (7-56) U/L Alkaline Phosphatase 61 (38-126) U/L Lactate Dehydrogenase 41624 H (333-699) U/L Total Creatine Kinase 3185 H (35-230) U/L CK-MB (CK-2) 26.0 H (0.0-3.6) ng/mL CK-MB (CK-2) % 0.8 L (2.5-3.0) % Troponin I 0.30 H* ng/mL NT-Pro-B Natriuret Pep (0-450) pg/mL Total Protein 4.3 L (5.8-8.3) g/dL Albumin 2.2 L (3.0-4.8) g/dL Globulin 2.1 gm/dL Albumin/Globulin Ratio 1.0 L (1.1-1.8) Lipase (23-300) U/L TSH 3rd Generation 8.48 H (0.46-4.68) mIU/mL Arterial Blood Potassium (3.6-5.2) mmol/L Venous Blood Potassium (3.6-5.2) mmol/L Acetaminophen (10.0-20.0) ug/ml Alcohol, Quantitative (0-10) mg/dL Blood Type Antibody Screen BBK History Checked 07/05/18 07/04/18 07/04/18 Range/Units 00:11 23:59 23:20 WBC (4.5-11.0) 10^3/uL RBC (3.5-6.1) 10^6/uL Hgb (12.0-16.0) g/dL Hct (36.0-48.0) % MCV (80.0-105.0) fl MCH (25.0-35.0) pg MCHC (31.0-37.0) g/dl RDW (11.5-14.5) % Plt Count (120.0-450.0) 10^3/uL MPV (7.0-11.0) fl Gran % (50.0-68.0) % Lymph % (Auto) (22.0-35.0) % [place] % (Auto) (1.0-6.0) % Eos % (Auto) (1.5-5.0) % Baso % (Auto) (0.0-3.0) % Gran # (1.4-6.5) Lymph # (Auto) (1.2-3.4) [place] # (Auto) (0.1-0.6) Eos # (Auto) (0.0-0.7) Baso # (Auto) (0.0-2.0) K/mm3 PT (9.4-12.5) SECONDS INR APTT (25.1-36.5) Seconds pCO2 57 H (35-45) mm/Hg pO2 556.0 H 44 (30-55) mm/Hg HCO3 18.1 L (21-28) mmol/L ABG pH 7.11 L* (7.35-7.45) ABG Total CO2 19.8 L (22-28) mmol.L ABG O2 Saturation 100.2 H (95-98) % ABG O2 Content 17.0 (15-23) ML/dl ABG Base Excess -11.4 L (-2.0-3.0) mmol/L ABG Hemoglobin 11.2 L (11.7-17.4) g/dL ABG Carboxyhemoglobin 1.2 (0.5-1.5) % POC ABG HHb (Measured) -0.2 L (0-5) % ABG Methemoglobin 0.9 (0.0-3.0) % ABG O2 Capacity 17.0 (16-24) mL/dl ABG Potassium (3.6-5.2) mmol/L VBG pH 7.03 L* (7.32-7.43) VBG pCO2 77.0 H* (40-60) VBG HCO3 20.3 L (21-28) mmol/l VBG Total CO2 22.7 (22-28) mmol.L VBG O2 Sat (Calc) 66.5 H (40-65) % VBG Base Excess -11.8 L (0.0-2.0) mmol/L VBG Potassium 5.4 H (3.6-5.2) mmol/L Hgb O2 Saturation 98.1 H (95.0-98.0) % Sodium 127.0 L (132-148) mmol/L Chloride 90.0 L (98-107) mmol/L Glucose 161 H (65-105) mg/dl Lactate 8.2 H* (0.7-2.1) mmol/L Mechanical Rate FiO2 100.0 21.0 % Tidal Volume PEEP Crit Value Called To cah Duque rn Crit Value Called By Geoff Chew Blood Gas Notified Time 16 5582 Potassium (3.6-5.0) mmol/L Carbon Dioxide (21-33) mmol/L Anion Gap (10-20) BUN (7-21) mg/dL Creatinine (0.7-1.2) mg/dl Est GFR ( Amer) Est GFR (Non-Af Amer) POC Glucose (mg/dL) 176 H (65-110) mg/dL Random Glucose (70-110) mg/dL Calcium (8.4-10.5) mg/dL Phosphorus (2.5-4.5) mg/dL Magnesium (1.7-2.2) mg/dL Total Bilirubin (0.2-1.3) mg/dL AST (14-36) U/L ALT (7-56) U/L Alkaline Phosphatase (38-126) U/L Lactate Dehydrogenase (333-699) U/L Total Creatine Kinase (35-230) U/L CK-MB (CK-2) (0.0-3.6) ng/mL CK-MB (CK-2) % (2.5-3.0) % Troponin I ng/mL NT-Pro-B Natriuret Pep (0-450) pg/mL Total Protein (5.8-8.3) g/dL Albumin (3.0-4.8) g/dL Globulin gm/dL Albumin/Globulin Ratio (1.1-1.8) Lipase (23-300) U/L TSH 3rd Generation (0.46-4.68) mIU/mL Arterial Blood Potassium (3.6-5.2) mmol/L Venous Blood Potassium 5.4 H (3.6-5.2) mmol/L Acetaminophen (10.0-20.0) ug/ml Alcohol, Quantitative (0-10) mg/dL Blood Type Antibody Screen BBK History Checked 07/04/18 07/04/18 07/04/18 Range/Units 23:20 23:20 20:17 WBC 3.4 L D (4.5-11.0) 10^3/uL RBC 3.91 (3.5-6.1) 10^6/uL Hgb 10.7 L (12.0-16.0) g/dL Hct 34.1 L (36.0-48.0) % MCV 87.2 (80.0-105.0) fl MCH 27.4 (25.0-35.0) pg MCHC 31.4 (31.0-37.0) g/dl RDW 15.3 H (11.5-14.5) % Plt Count 92 L (120.0-450.0) 10^3/uL MPV 9.6 (7.0-11.0) fl Gran % (50.0-68.0) % Lymph % (Auto) (22.0-35.0) % [place] % (Auto) (1.0-6.0) % Eos % (Auto) (1.5-5.0) % Baso % (Auto) (0.0-3.0) % Gran # (1.4-6.5) Lymph # (Auto) (1.2-3.4) [place] # (Auto) (0.1-0.6) Eos # (Auto) (0.0-0.7) Baso # (Auto) (0.0-2.0) K/mm3 PT (9.4-12.5) SECONDS INR APTT (25.1-36.5) Seconds pCO2 (35-45) mm/Hg pO2 (30-55) mm/Hg HCO3 (21-28) mmol/L ABG pH (7.35-7.45) ABG Total CO2 (22-28) mmol.L ABG O2 Saturation (95-98) % ABG O2 Content (15-23) ML/dl ABG Base Excess (-2.0-3.0) mmol/L ABG Hemoglobin (11.7-17.4) g/dL ABG Carboxyhemoglobin (0.5-1.5) % POC ABG HHb (Measured) (0-5) % ABG Methemoglobin (0.0-3.0) % ABG O2 Capacity (16-24) mL/dl ABG Potassium (3.6-5.2) mmol/L VBG pH (7.32-7.43) VBG pCO2 (40-60) VBG HCO3 (21-28) mmol/l VBG Total CO2 (22-28) mmol.L VBG O2 Sat (Calc) (40-65) % VBG Base Excess (0.0-2.0) mmol/L VBG Potassium (3.6-5.2) mmol/L Hgb O2 Saturation (95.0-98.0) % Sodium 130 L (132-148) mmol/L Chloride 89 L (98-107) mmol/L Glucose (65-105) mg/dl Lactate (0.7-2.1) mmol/L Mechanical Rate FiO2 % Tidal Volume PEEP Crit Value Called To Crit Value Called By Blood Gas Notified Time Potassium 5.3 H (3.6-5.0) mmol/L Carbon Dioxide 23 (21-33) mmol/L Anion Gap 24 H (10-20) BUN 86 H (7-21) mg/dL Creatinine 5.3 H (0.7-1.2) mg/dl Est GFR ( Amer) 10 Est GFR (Non-Af Amer) 8 POC Glucose (mg/dL) 143 H (65-110) mg/dL Random Glucose 154 H (70-110) mg/dL Calcium 9.5 (8.4-10.5) mg/dL Phosphorus 11.0 H (2.5-4.5) mg/dL Magnesium 2.4 H (1.7-2.2) mg/dL Total Bilirubin 0.7 (0.2-1.3) mg/dL AST 2771 H (14-36) U/L ALT 571 H (7-56) U/L Alkaline Phosphatase 80 (38-126) U/L Lactate Dehydrogenase 7324 H (333-699) U/L Total Creatine Kinase 4669 H (35-230) U/L CK-MB (CK-2) 28.4 H (0.0-3.6) ng/mL CK-MB (CK-2) % 0.6 L (2.5-3.0) % Troponin I 0.31 H* D ng/mL NT-Pro-B Natriuret Pep (0-450) pg/mL Total Protein 5.7 L (5.8-8.3) g/dL Albumin 3.1 (3.0-4.8) g/dL Globulin 2.6 gm/dL Albumin/Globulin Ratio 1.2 (1.1-1.8) Lipase (23-300) U/L TSH 3rd Generation (0.46-4.68) mIU/mL Arterial Blood Potassium (3.6-5.2) mmol/L Venous Blood Potassium (3.6-5.2) mmol/L Acetaminophen (10.0-20.0) ug/ml Alcohol, Quantitative (0-10) mg/dL Blood Type Antibody Screen BBK History Checked 07/04/18 07/04/18 07/04/18 Range/Units 20:09 20:00 20:00 WBC (4.5-11.0) 10^3/uL RBC (3.5-6.1) 10^6/uL Hgb (12.0-16.0) g/dL Hct (36.0-48.0) % MCV (80.0-105.0) fl MCH (25.0-35.0) pg MCHC (31.0-37.0) g/dl RDW (11.5-14.5) % Plt Count (120.0-450.0) 10^3/uL MPV (7.0-11.0) fl Gran % (50.0-68.0) % Lymph % (Auto) (22.0-35.0) % [place] % (Auto) (1.0-6.0) % Eos % (Auto) (1.5-5.0) % Baso % (Auto) (0.0-3.0) % Gran # (1.4-6.5) Lymph # (Auto) (1.2-3.4) [place] # (Auto) (0.1-0.6) Eos # (Auto) (0.0-0.7) Baso # (Auto) (0.0-2.0) K/mm3 PT (9.4-12.5) SECONDS INR APTT (25.1-36.5) Seconds pCO2 54 H (35-45) mm/Hg pO2 473.0 H (30-55) mm/Hg HCO3 16.4 L (21-28) mmol/L ABG pH 7.09 L* (7.35-7.45) ABG Total CO2 18.1 L (22-28) mmol.L ABG O2 Saturation 100.3 H (95-98) % ABG O2 Content 15.8 (15-23) ML/dl ABG Base Excess -13.2 L (-2.0-3.0) mmol/L ABG Hemoglobin 10.4 L (11.7-17.4) g/dL ABG Carboxyhemoglobin 1.2 (0.5-1.5) % POC ABG HHb (Measured) -0.3 L (0-5) % ABG Methemoglobin 0.5 (0.0-3.0) % ABG O2 Capacity 15.8 L (16-24) mL/dl ABG Potassium (3.6-5.2) mmol/L VBG pH (7.32-7.43) VBG pCO2 (40-60) VBG HCO3 (21-28) mmol/l VBG Total CO2 (22-28) mmol.L VBG O2 Sat (Calc) (40-65) % VBG Base Excess (0.0-2.0) mmol/L VBG Potassium (3.6-5.2) mmol/L Hgb O2 Saturation 98.7 H (95.0-98.0) % Sodium (132-148) mmol/L Chloride (98-107) mmol/L Glucose (65-105) mg/dl Lactate (0.7-2.1) mmol/L Mechanical Rate FiO2 100.0 % Tidal Volume PEEP Crit Value Called To Iqsa rn Crit Value Called By Matthew Blood Gas Notified Time 2018 Potassium (3.6-5.0) mmol/L Carbon Dioxide (21-33) mmol/L Anion Gap (10-20) BUN (7-21) mg/dL Creatinine (0.7-1.2) mg/dl Est GFR ( Amer) Est GFR (Non-Af Amer) POC Glucose (mg/dL) (65-110) mg/dL Random Glucose (70-110) mg/dL Calcium (8.4-10.5) mg/dL Phosphorus 11.9 H (2.5-4.5) mg/dL Magnesium 2.7 H (1.7-2.2) mg/dL Total Bilirubin (0.2-1.3) mg/dL AST (14-36) U/L ALT (7-56) U/L Alkaline Phosphatase (38-126) U/L Lactate Dehydrogenase (333-699) U/L Total Creatine Kinase (35-230) U/L CK-MB (CK-2) (0.0-3.6) ng/mL CK-MB (CK-2) % (2.5-3.0) % Troponin I ng/mL NT-Pro-B Natriuret Pep (0-450) pg/mL Total Protein (5.8-8.3) g/dL Albumin (3.0-4.8) g/dL Globulin gm/dL Albumin/Globulin Ratio (1.1-1.8) Lipase (23-300) U/L TSH 3rd Generation (0.46-4.68) mIU/mL Arterial Blood Potassium (3.6-5.2) mmol/L Venous Blood Potassium (3.6-5.2) mmol/L Acetaminophen < 10.0 L (10.0-20.0) ug/ml Alcohol, Quantitative (0-10) mg/dL Blood Type Antibody Screen BBK History Checked 07/04/18 07/04/18 07/04/18 Range/Units 20:00 18:49 17:56 WBC (4.5-11.0) 10^3/uL RBC (3.5-6.1) 10^6/uL Hgb (12.0-16.0) g/dL Hct (36.0-48.0) % MCV (80.0-105.0) fl MCH (25.0-35.0) pg MCHC (31.0-37.0) g/dl RDW (11.5-14.5) % Plt Count (120.0-450.0) 10^3/uL MPV (7.0-11.0) fl Gran % (50.0-68.0) % Lymph % (Auto) (22.0-35.0) % [place] % (Auto) (1.0-6.0) % Eos % (Auto) (1.5-5.0) % Baso % (Auto) (0.0-3.0) % Gran # (1.4-6.5) Lymph # (Auto) (1.2-3.4) [place] # (Auto) (0.1-0.6) Eos # (Auto) (0.0-0.7) Baso # (Auto) (0.0-2.0) K/mm3 PT (9.4-12.5) SECONDS INR APTT (25.1-36.5) Seconds pCO2 (35-45) mm/Hg pO2 (30-55) mm/Hg HCO3 (21-28) mmol/L ABG pH (7.35-7.45) ABG Total CO2 (22-28) mmol.L ABG O2 Saturation (95-98) % ABG O2 Content (15-23) ML/dl ABG Base Excess (-2.0-3.0) mmol/L ABG Hemoglobin (11.7-17.4) g/dL ABG Carboxyhemoglobin (0.5-1.5) % POC ABG HHb (Measured) (0-5) % ABG Methemoglobin (0.0-3.0) % ABG O2 Capacity (16-24) mL/dl ABG Potassium (3.6-5.2) mmol/L VBG pH (7.32-7.43) VBG pCO2 (40-60) VBG HCO3 (21-28) mmol/l VBG Total CO2 (22-28) mmol.L VBG O2 Sat (Calc) (40-65) % VBG Base Excess (0.0-2.0) mmol/L VBG Potassium (3.6-5.2) mmol/L Hgb O2 Saturation (95.0-98.0) % Sodium (132-148) mmol/L Chloride (98-107) mmol/L Glucose (65-105) mg/dl Lactate (0.7-2.1) mmol/L Mechanical Rate FiO2 % Tidal Volume PEEP Crit Value Called To Crit Value Called By Blood Gas Notified Time Potassium (3.6-5.0) mmol/L Carbon Dioxide (21-33) mmol/L Anion Gap (10-20) BUN (7-21) mg/dL Creatinine (0.7-1.2) mg/dl Est GFR ( Amer) Est GFR (Non-Af Amer) POC Glucose (mg/dL) 123 H (65-110) mg/dL Random Glucose (70-110) mg/dL Calcium (8.4-10.5) mg/dL Phosphorus (2.5-4.5) mg/dL Magnesium (1.7-2.2) mg/dL Total Bilirubin (0.2-1.3) mg/dL AST (14-36) U/L ALT (7-56) U/L Alkaline Phosphatase (38-126) U/L Lactate Dehydrogenase (333-699) U/L Total Creatine Kinase (35-230) U/L CK-MB (CK-2) (0.0-3.6) ng/mL CK-MB (CK-2) % (2.5-3.0) % Troponin I ng/mL NT-Pro-B Natriuret Pep (0-450) pg/mL Total Protein (5.8-8.3) g/dL Albumin (3.0-4.8) g/dL Globulin gm/dL Albumin/Globulin Ratio (1.1-1.8) Lipase (23-300) U/L TSH 3rd Generation (0.46-4.68) mIU/mL Arterial Blood Potassium (3.6-5.2) mmol/L Venous Blood Potassium (3.6-5.2) mmol/L Acetaminophen (10.0-20.0) ug/ml Alcohol, Quantitative < 10 (0-10) mg/dL Blood Type A POSITIVE Antibody Screen Negative BBK History Checked No verified bt 07/04/18 07/04/18 07/04/18 Range/Units 17:48 17:29 17:29 WBC 6.4 (4.5-11.0) 10^3/uL RBC 3.85 (3.5-6.1) 10^6/uL Hgb 10.4 L (12.0-16.0) g/dL Hct 33.3 L (36.0-48.0) % MCV 86.5 (80.0-105.0) fl MCH 27.0 (25.0-35.0) pg MCHC 31.2 (31.0-37.0) g/dl RDW 15.4 H (11.5-14.5) % Plt Count 121 (120.0-450.0) 10^3/uL MPV 10.8 (7.0-11.0) fl Gran % 77.9 H (50.0-68.0) % Lymph % (Auto) 12.2 L (22.0-35.0) % [place] % (Auto) 9.7 H (1.0-6.0) % Eos % (Auto) 0.2 L (1.5-5.0) % Baso % (Auto) 0.0 (0.0-3.0) % Gran # 4.97 (1.4-6.5) Lymph # (Auto) 0.8 L (1.2-3.4) [place] # (Auto) 0.6 (0.1-0.6) Eos # (Auto) 0.0 (0.0-0.7) Baso # (Auto) 0.00 (0.0-2.0) K/mm3 PT (9.4-12.5) SECONDS INR APTT (25.1-36.5) Seconds pCO2 (35-45) mm/Hg pO2 71 H (30-55) mm/Hg HCO3 (21-28) mmol/L ABG pH (7.35-7.45) ABG Total CO2 (22-28) mmol.L ABG O2 Saturation (95-98) % ABG O2 Content (15-23) ML/dl ABG Base Excess (-2.0-3.0) mmol/L ABG Hemoglobin (11.7-17.4) g/dL ABG Carboxyhemoglobin (0.5-1.5) % POC ABG HHb (Measured) (0-5) % ABG Methemoglobin (0.0-3.0) % ABG O2 Capacity (16-24) mL/dl ABG Potassium (3.6-5.2) mmol/L VBG pH 6.97 L* (7.32-7.43) VBG pCO2 60.0 (40-60) VBG HCO3 13.8 L (21-28) mmol/l VBG Total CO2 15.6 L (22-28) mmol.L VBG O2 Sat (Calc) 89.1 H (40-65) % VBG Base Excess -18.4 L (0.0-2.0) mmol/L VBG Potassium 5.7 H (3.6-5.2) mmol/L Hgb O2 Saturation (95.0-98.0) % Sodium 126 L 122.0 L (132-148) mmol/L Chloride 84 L 83.0 L (98-107) mmol/L Glucose 445 H* D (65-105) mg/dl Lactate 10.4 H* (0.7-2.1) mmol/L Mechanical Rate FiO2 21.0 % Tidal Volume PEEP Crit Value Called To Bren ruiz Crit Value Called By Atc Blood Gas Notified Time 1740 Potassium 5.7 H* (3.6-5.0) mmol/L Carbon Dioxide 16 L (21-33) mmol/L Anion Gap 32 H (10-20) BUN 82 H (7-21) mg/dL Creatinine 5.7 H (0.7-1.2) mg/dl Est GFR ( Amer) 9 Est GFR (Non-Af Amer) 8 POC Glucose (mg/dL) (65-110) mg/dL Random Glucose 374 H* (70-110) mg/dL Calcium 8.6 (8.4-10.5) mg/dL Phosphorus (2.5-4.5) mg/dL Magnesium (1.7-2.2) mg/dL Total Bilirubin 0.7 (0.2-1.3) mg/dL AST 1460 H (14-36) U/L ALT 485 H (7-56) U/L Alkaline Phosphatase 67 (38-126) U/L Lactate Dehydrogenase (333-699) U/L Total Creatine Kinase 2084 H (35-230) U/L CK-MB (CK-2) 12.7 H (0.0-3.6) ng/mL CK-MB (CK-2) % 0.6 L (2.5-3.0) % Troponin I 0.24 H* ng/mL NT-Pro-B Natriuret Pep 43952 H (0-450) pg/mL Total Protein 5.7 L (5.8-8.3) g/dL Albumin 3.2 (3.0-4.8) g/dL Globulin 2.5 gm/dL Albumin/Globulin Ratio 1.3 (1.1-1.8) Lipase 25 (23-300) U/L TSH 3rd Generation (0.46-4.68) mIU/mL Arterial Blood Potassium (3.6-5.2) mmol/L Venous Blood Potassium 5.7 H (3.6-5.2) mmol/L Acetaminophen (10.0-20.0) ug/ml Alcohol, Quantitative (0-10) mg/dL Blood Type Antibody Screen BBK History Checked 07/04/18 07/04/18 Range/Units 17:29 17:24 WBC (4.5-11.0) 10^3/uL RBC (3.5-6.1) 10^6/uL Hgb (12.0-16.0) g/dL Hct (36.0-48.0) % MCV (80.0-105.0) fl MCH (25.0-35.0) pg MCHC (31.0-37.0) g/dl RDW (11.5-14.5) % Plt Count (120.0-450.0) 10^3/uL MPV (7.0-11.0) fl Gran % (50.0-68.0) % Lymph % (Auto) (22.0-35.0) % [place] % (Auto) (1.0-6.0) % Eos % (Auto) (1.5-5.0) % Baso % (Auto) (0.0-3.0) % Gran # (1.4-6.5) Lymph # (Auto) (1.2-3.4) [place] # (Auto) (0.1-0.6) Eos # (Auto) (0.0-0.7) Baso # (Auto) (0.0-2.0) K/mm3 PT 13.8 H (9.4-12.5) SECONDS INR 1.21 APTT 34.9 (25.1-36.5) Seconds pCO2 (35-45) mm/Hg pO2 (30-55) mm/Hg HCO3 (21-28) mmol/L ABG pH (7.35-7.45) ABG Total CO2 (22-28) mmol.L ABG O2 Saturation (95-98) % ABG O2 Content (15-23) ML/dl ABG Base Excess (-2.0-3.0) mmol/L ABG Hemoglobin (11.7-17.4) g/dL ABG Carboxyhemoglobin (0.5-1.5) % POC ABG HHb (Measured) (0-5) % ABG Methemoglobin (0.0-3.0) % ABG O2 Capacity (16-24) mL/dl ABG Potassium (3.6-5.2) mmol/L VBG pH (7.32-7.43) VBG pCO2 (40-60) VBG HCO3 (21-28) mmol/l VBG Total CO2 (22-28) mmol.L VBG O2 Sat (Calc) (40-65) % VBG Base Excess (0.0-2.0) mmol/L VBG Potassium (3.6-5.2) mmol/L Hgb O2 Saturation (95.0-98.0) % Sodium (132-148) mmol/L Chloride (98-107) mmol/L Glucose (65-105) mg/dl Lactate (0.7-2.1) mmol/L Mechanical Rate FiO2 % Tidal Volume PEEP Crit Value Called To Crit Value Called By Blood Gas Notified Time Potassium (3.6-5.0) mmol/L Carbon Dioxide (21-33) mmol/L Anion Gap (10-20) BUN (7-21) mg/dL Creatinine (0.7-1.2) mg/dl Est GFR ( Amer) Est GFR (Non-Af Amer) POC Glucose (mg/dL) > 500 H* (65-110) mg/dL Random Glucose (70-110) mg/dL Calcium (8.4-10.5) mg/dL Phosphorus (2.5-4.5) mg/dL Magnesium (1.7-2.2) mg/dL Total Bilirubin (0.2-1.3) mg/dL AST (14-36) U/L ALT (7-56) U/L Alkaline Phosphatase (38-126) U/L Lactate Dehydrogenase (333-699) U/L Total Creatine Kinase (35-230) U/L CK-MB (CK-2) (0.0-3.6) ng/mL CK-MB (CK-2) % (2.5-3.0) % Troponin I ng/mL NT-Pro-B Natriuret Pep (0-450) pg/mL Total Protein (5.8-8.3) g/dL Albumin (3.0-4.8) g/dL Globulin gm/dL Albumin/Globulin Ratio (1.1-1.8) Lipase (23-300) U/L TSH 3rd Generation (0.46-4.68) mIU/mL Arterial Blood Potassium (3.6-5.2) mmol/L Venous Blood Potassium (3.6-5.2) mmol/L Acetaminophen (10.0-20.0) ug/ml Alcohol, Quantitative (0-10) mg/dL Blood Type Antibody Screen BBK History Checked Laboratory Results - last 24 hr 07/04/18 07/04/18 07/04/18 17:24 17:29 17:29 WBC RBC Hgb Hct MCV MCH MCHC RDW Plt Count MPV Gran % Lymph % (Auto) [place] % (Auto) Eos % (Auto) Baso % (Auto) Gran # Lymph # (Auto) [place] # (Auto) Eos # (Auto) Baso # (Auto) PT 13.8 H INR 1.21 APTT 34.9 pCO2 pO2 71 H HCO3 ABG pH ABG Total CO2 ABG O2 Saturation ABG O2 Content ABG Base Excess ABG Hemoglobin ABG Carboxyhemoglobin POC ABG HHb (Measured) ABG Methemoglobin ABG O2 Capacity ABG Potassium VBG pH 6.97 L* VBG pCO2 60.0 VBG HCO3 13.8 L VBG Total CO2 15.6 L VBG O2 Sat (Calc) 89.1 H VBG Base Excess -18.4 L VBG Potassium 5.7 H Hgb O2 Saturation Sodium 122.0 L Chloride 83.0 L Glucose 445 H* D Lactate 10.4 H* Mechanical Rate FiO2 21.0 Tidal Volume PEEP Crit Value Called To Bren ruiz Crit Value Called By Atc Blood Gas Notified Time 1740 Potassium Carbon Dioxide Anion Gap BUN Creatinine Est GFR ( Amer) Est GFR (Non-Af Amer) POC Glucose (mg/dL) > 500 H* Random Glucose Calcium Phosphorus Magnesium Total Bilirubin AST ALT Alkaline Phosphatase Lactate Dehydrogenase Total Creatine Kinase CK-MB (CK-2) CK-MB (CK-2) % Troponin I NT-Pro-B Natriuret Pep Total Protein Albumin Globulin Albumin/Globulin Ratio Lipase TSH 3rd Generation Arterial Blood Potassium Venous Blood Potassium 5.7 H Acetaminophen Alcohol, Quantitative Blood Type Antibody Screen BBK History Checked 07/04/18 07/04/18 07/04/18 17:29 17:48 17:56 WBC 6.4 RBC 3.85 Hgb 10.4 L Hct 33.3 L MCV 86.5 MCH 27.0 MCHC 31.2 RDW 15.4 H Plt Count 121 MPV 10.8 Gran % 77.9 H Lymph % (Auto) 12.2 L [place] % (Auto) 9.7 H Eos % (Auto) 0.2 L Baso % (Auto) 0.0 Gran # 4.97 Lymph # (Auto) 0.8 L [place] # (Auto) 0.6 Eos # (Auto) 0.0 Baso # (Auto) 0.00 PT INR APTT pCO2 pO2 HCO3 ABG pH ABG Total CO2 ABG O2 Saturation ABG O2 Content ABG Base Excess ABG Hemoglobin ABG Carboxyhemoglobin POC ABG HHb (Measured) ABG Methemoglobin ABG O2 Capacity ABG Potassium VBG pH VBG pCO2 VBG HCO3 VBG Total CO2 VBG O2 Sat (Calc) VBG Base Excess VBG Potassium Hgb O2 Saturation Sodium 126 L Chloride 84 L Glucose Lactate Mechanical Rate FiO2 Tidal Volume PEEP Crit Value Called To Crit Value Called By Blood Gas Notified Time Potassium 5.7 H* Carbon Dioxide 16 L Anion Gap 32 H BUN 82 H Creatinine 5.7 H Est GFR ( Amer) 9 Est GFR (Non-Af Amer) 8 POC Glucose (mg/dL) Random Glucose 374 H* Calcium 8.6 Phosphorus Magnesium Total Bilirubin 0.7 AST 1460 H ALT 485 H Alkaline Phosphatase 67 Lactate Dehydrogenase Total Creatine Kinase 2084 H CK-MB (CK-2) 12.7 H CK-MB (CK-2) % 0.6 L Troponin I 0.24 H* NT-Pro-B Natriuret Pep 22584 H Total Protein 5.7 L Albumin 3.2 Globulin 2.5 Albumin/Globulin Ratio 1.3 Lipase 25 TSH 3rd Generation Arterial Blood Potassium Venous Blood Potassium Acetaminophen Alcohol, Quantitative Blood Type A POSITIVE Antibody Screen Negative BBK History Checked No verified bt 07/04/18 07/04/18 07/04/18 18:49 20:00 20:00 WBC RBC Hgb Hct MCV MCH MCHC RDW Plt Count MPV Gran % Lymph % (Auto) [place] % (Auto) Eos % (Auto) Baso % (Auto) Gran # Lymph # (Auto) [place] # (Auto) Eos # (Auto) Baso # (Auto) PT INR APTT pCO2 pO2 HCO3 ABG pH ABG Total CO2 ABG O2 Saturation ABG O2 Content ABG Base Excess ABG Hemoglobin ABG Carboxyhemoglobin POC ABG HHb (Measured) ABG Methemoglobin ABG O2 Capacity ABG Potassium VBG pH VBG pCO2 VBG HCO3 VBG Total CO2 VBG O2 Sat (Calc) VBG Base Excess VBG Potassium Hgb O2 Saturation Sodium Chloride Glucose Lactate Mechanical Rate FiO2 Tidal Volume PEEP Crit Value Called To Crit Value Called By Blood Gas Notified Time Potassium Carbon Dioxide Anion Gap BUN Creatinine Est GFR ( Amer) Est GFR (Non-Af Amer) POC Glucose (mg/dL) 123 H Random Glucose Calcium Phosphorus Magnesium Total Bilirubin AST ALT Alkaline Phosphatase Lactate Dehydrogenase Total Creatine Kinase CK-MB (CK-2) CK-MB (CK-2) % Troponin I NT-Pro-B Natriuret Pep Total Protein Albumin Globulin Albumin/Globulin Ratio Lipase TSH 3rd Generation Arterial Blood Potassium Venous Blood Potassium Acetaminophen < 10.0 L Alcohol, Quantitative < 10 Blood Type Antibody Screen BBK History Checked 07/04/18 07/04/18 07/04/18 20:00 20:09 20:17 WBC RBC Hgb Hct MCV MCH MCHC RDW Plt Count MPV Gran % Lymph % (Auto) [place] % (Auto) Eos % (Auto) Baso % (Auto) Gran # Lymph # (Auto) [place] # (Auto) Eos # (Auto) Baso # (Auto) PT INR APTT pCO2 54 H pO2 473.0 H HCO3 16.4 L ABG pH 7.09 L* ABG Total CO2 18.1 L ABG O2 Saturation 100.3 H ABG O2 Content 15.8 ABG Base Excess -13.2 L ABG Hemoglobin 10.4 L ABG Carboxyhemoglobin 1.2 POC ABG HHb (Measured) -0.3 L ABG Methemoglobin 0.5 ABG O2 Capacity 15.8 L ABG Potassium VBG pH VBG pCO2 VBG HCO3 VBG Total CO2 VBG O2 Sat (Calc) VBG Base Excess VBG Potassium Hgb O2 Saturation 98.7 H Sodium Chloride Glucose Lactate Mechanical Rate FiO2 100.0 Tidal Volume PEEP Crit Value Called To Iqsa rn Crit Value Called By Matthew Blood Gas Notified Time 2018 Potassium Carbon Dioxide Anion Gap BUN Creatinine Est GFR ( Amer) Est GFR (Non-Af Amer) POC Glucose (mg/dL) 143 H Random Glucose Calcium Phosphorus 11.9 H Magnesium 2.7 H Total Bilirubin AST ALT Alkaline Phosphatase Lactate Dehydrogenase Total Creatine Kinase CK-MB (CK-2) CK-MB (CK-2) % Troponin I NT-Pro-B Natriuret Pep Total Protein Albumin Globulin Albumin/Globulin Ratio Lipase TSH 3rd Generation Arterial Blood Potassium Venous Blood Potassium Acetaminophen Alcohol, Quantitative Blood Type Antibody Screen BBK History Checked 07/04/18 07/04/18 07/04/18 23:20 23:20 23:20 WBC 3.4 L D RBC 3.91 Hgb 10.7 L Hct 34.1 L MCV 87.2 MCH 27.4 MCHC 31.4 RDW 15.3 H Plt Count 92 L MPV 9.6 Gran % Lymph % (Auto) [place] % (Auto) Eos % (Auto) Baso % (Auto) Gran # Lymph # (Auto) [place] # (Auto) Eos # (Auto) Baso # (Auto) PT INR APTT pCO2 pO2 44 HCO3 ABG pH ABG Total CO2 ABG O2 Saturation ABG O2 Content ABG Base Excess ABG Hemoglobin ABG Carboxyhemoglobin POC ABG HHb (Measured) ABG Methemoglobin ABG O2 Capacity ABG Potassium VBG pH 7.03 L* VBG pCO2 77.0 H* VBG HCO3 20.3 L VBG Total CO2 22.7 VBG O2 Sat (Calc) 66.5 H VBG Base Excess -11.8 L VBG Potassium 5.4 H Hgb O2 Saturation Sodium 130 L 127.0 L Chloride 89 L 90.0 L Glucose 161 H Lactate 8.2 H* Mechanical Rate FiO2 21.0 Tidal Volume PEEP Crit Value Called To cha Baldwin Crit Value Called By Jeevan Blood Gas Notified Time 2343 Potassium 5.3 H Carbon Dioxide 23 Anion Gap 24 H BUN 86 H Creatinine 5.3 H Est GFR ( Amer) 10 Est GFR (Non-Af Amer) 8 POC Glucose (mg/dL) Random Glucose 154 H Calcium 9.5 Phosphorus 11.0 H Magnesium 2.4 H Total Bilirubin 0.7 AST 2771 H ALT 571 H Alkaline Phosphatase 80 Lactate Dehydrogenase 7324 H Total Creatine Kinase 4669 H CK-MB (CK-2) 28.4 H CK-MB (CK-2) % 0.6 L Troponin I 0.31 H* D NT-Pro-B Natriuret Pep Total Protein 5.7 L Albumin 3.1 Globulin 2.6 Albumin/Globulin Ratio 1.2 Lipase TSH 3rd Generation Arterial Blood Potassium Venous Blood Potassium 5.4 H Acetaminophen Alcohol, Quantitative Blood Type Antibody Screen BBK History Checked 07/04/18 07/05/18 07/05/18 23:59 00:11 05:00 WBC RBC Hgb Hct MCV MCH MCHC RDW Plt Count MPV Gran % Lymph % (Auto) [place] % (Auto) Eos % (Auto) Baso % (Auto) Gran # Lymph # (Auto) [place] # (Auto) Eos # (Auto) Baso # (Auto) PT INR APTT pCO2 57 H pO2 556.0 H HCO3 18.1 L ABG pH 7.11 L* ABG Total CO2 19.8 L ABG O2 Saturation 100.2 H ABG O2 Content 17.0 ABG Base Excess -11.4 L ABG Hemoglobin 11.2 L ABG Carboxyhemoglobin 1.2 POC ABG HHb (Measured) -0.2 L ABG Methemoglobin 0.9 ABG O2 Capacity 17.0 ABG Potassium VBG pH VBG pCO2 VBG HCO3 VBG Total CO2 VBG O2 Sat (Calc) VBG Base Excess VBG Potassium Hgb O2 Saturation 98.1 H Sodium Chloride Glucose Lactate Mechanical Rate FiO2 100.0 Tidal Volume PEEP Crit Value Called To Agustina romo Crit Value Called By [facility] Blood Gas Notified Time 16 Potassium Carbon Dioxide Anion Gap BUN Creatinine Est GFR ( Amer) Est GFR (Non-Af Amer) POC Glucose (mg/dL) 176 H Random Glucose Calcium Phosphorus Magnesium Total Bilirubin AST ALT Alkaline Phosphatase Lactate Dehydrogenase Total Creatine Kinase CK-MB (CK-2) CK-MB (CK-2) % Troponin I NT-Pro-B Natriuret Pep Total Protein Albumin Globulin Albumin/Globulin Ratio Lipase TSH 3rd Generation 8.48 H Arterial Blood Potassium Venous Blood Potassium Acetaminophen Alcohol, Quantitative Blood Type Antibody Screen BBK History Checked 07/05/18 07/05/18 07/05/18 05:00 05:00 05:00 WBC 5.0 D RBC 3.44 L Hgb 9.2 L Hct 30.5 L MCV 88.7 MCH 26.7 MCHC 30.2 L RDW 15.3 H Plt Count 44 L* MPV 9.3 Gran % 57.5 Lymph % (Auto) 25.9 [place] % (Auto) 16.2 H Eos % (Auto) 0.2 L Baso % (Auto) 0.2 Gran # 2.87 Lymph # (Auto) 1.3 [place] # (Auto) 0.8 H Eos # (Auto) 0.0 Baso # (Auto) 0.01 PT INR APTT pCO2 pO2 33 HCO3 ABG pH ABG Total CO2 ABG O2 Saturation ABG O2 Content ABG Base Excess ABG Hemoglobin ABG Carboxyhemoglobin POC ABG HHb (Measured) ABG Methemoglobin ABG O2 Capacity ABG Potassium VBG pH 7.03 L* VBG pCO2 75.0 H* VBG HCO3 19.8 L VBG Total CO2 22.1 VBG O2 Sat (Calc) 50.8 VBG Base Excess -12.2 L VBG Potassium 6.4 H* Hgb O2 Saturation Sodium 136 133.0 Chloride 97 L 96.0 L Glucose 15 L* D Lactate 10.3 H* Mechanical Rate FiO2 21.0 Tidal Volume PEEP Crit Value Called To moncho Anthony Crit Value Called By Jeevan Blood Gas Notified Time 603 Potassium 6.4 H* D Carbon Dioxide 21 Anion Gap 24 H BUN 78 H Creatinine 4.6 H Est GFR ( Amer) 12 Est GFR (Non-Af Amer) 10 POC Glucose (mg/dL) Random Glucose < 20 L* D Calcium 7.5 L Phosphorus 10.0 H Magnesium 2.3 H Total Bilirubin 0.7 AST 4212 H ALT 1239 H Alkaline Phosphatase 61 Lactate Dehydrogenase 93779 H Total Creatine Kinase 3185 H CK-MB (CK-2) 26.0 H CK-MB (CK-2) % 0.8 L Troponin I 0.30 H* NT-Pro-B Natriuret Pep Total Protein 4.3 L Albumin 2.2 L Globulin 2.1 Albumin/Globulin Ratio 1.0 L Lipase TSH 3rd Generation Arterial Blood Potassium Venous Blood Potassium 6.4 H* Acetaminophen Alcohol, Quantitative Blood Type Antibody Screen BBK History Checked 07/05/18 07/05/18 07/05/18 05:50 06:09 07:41 WBC RBC Hgb Hct MCV MCH MCHC RDW Plt Count MPV Gran % Lymph % (Auto) [place] % (Auto) Eos % (Auto) Baso % (Auto) Gran # Lymph # (Auto) [place] # (Auto) Eos # (Auto) Baso # (Auto) PT INR APTT pCO2 55 H pO2 226.0 H HCO3 16.3 L ABG pH 7.08 L* ABG Total CO2 18.0 L ABG O2 Saturation 99.9 H ABG O2 Content 13.2 L ABG Base Excess -13.2 L ABG Hemoglobin 9.2 L ABG Carboxyhemoglobin 1.4 POC ABG HHb (Measured) 0.1 ABG Methemoglobin 1.1 ABG O2 Capacity 13.2 L ABG Potassium VBG pH VBG pCO2 VBG HCO3 VBG Total CO2 VBG O2 Sat (Calc) VBG Base Excess VBG Potassium Hgb O2 Saturation 97.4 Sodium Chloride Glucose Lactate Mechanical Rate FiO2 40.0 Tidal Volume PEEP Crit Value Called To Jorje romo Crit Value Called By Matthew Blood Gas Notified Time 606 Potassium Carbon Dioxide Anion Gap BUN Creatinine Est GFR ( Amer) Est GFR (Non-Af Amer) POC Glucose (mg/dL) < 20 L* 34 L* Random Glucose Calcium Phosphorus Magnesium Total Bilirubin AST ALT Alkaline Phosphatase Lactate Dehydrogenase Total Creatine Kinase CK-MB (CK-2) CK-MB (CK-2) % Troponin I NT-Pro-B Natriuret Pep Total Protein Albumin Globulin Albumin/Globulin Ratio Lipase TSH 3rd Generation Arterial Blood Potassium Venous Blood Potassium Acetaminophen Alcohol, Quantitative Blood Type Antibody Screen BBK History Checked 07/05/18 07/05/18 07/05/18 08:50 09:23 11:15 WBC RBC Hgb Hct MCV MCH MCHC RDW Plt Count MPV Gran % Lymph % (Auto) [place] % (Auto) Eos % (Auto) Baso % (Auto) Gran # Lymph # (Auto) [place] # (Auto) Eos # (Auto) Baso # (Auto) PT INR APTT pCO2 51 H pO2 52 352.0 H HCO3 22.9 ABG pH 7.26 L ABG Total CO2 24.5 ABG O2 Saturation 100.0 H ABG O2 Content ABG Base Excess -4.6 L ABG Hemoglobin ABG Carboxyhemoglobin POC ABG HHb (Measured) ABG Methemoglobin ABG O2 Capacity ABG Potassium 5.1 VBG pH 7.12 L* VBG pCO2 70.0 H* VBG HCO3 22.8 VBG Total CO2 24.9 VBG O2 Sat (Calc) 82.5 H VBG Base Excess -7.8 L VBG Potassium 5.9 H Hgb O2 Saturation Sodium 132.0 133.0 Chloride 93.0 L 99.0 Glucose 69 371 H Lactate 9.7 H* 6.3 H* Mechanical Rate 14 FiO2 21.0 100.0 Tidal Volume 350 PEEP 5 Crit Value Called To Maria Isabel melgar Crit Value Called By Geremias Evangelista Blood Gas Notified Time [id number] Potassium Carbon Dioxide Anion Gap BUN Creatinine Est GFR ( Amer) Est GFR (Non-Af Amer) POC Glucose (mg/dL) 20 L* Random Glucose Calcium Phosphorus Magnesium Total Bilirubin AST ALT Alkaline Phosphatase Lactate Dehydrogenase Total Creatine Kinase CK-MB (CK-2) CK-MB (CK-2) % Troponin I NT-Pro-B Natriuret Pep Total Protein Albumin Globulin Albumin/Globulin Ratio Lipase TSH 3rd Generation Arterial Blood Potassium 5.1 Venous Blood Potassium 5.9 H Acetaminophen Alcohol, Quantitative Blood Type Antibody Screen BBK History Checked 07/05/18 07/05/18 12:33 13:29 WBC RBC Hgb Hct MCV MCH MCHC RDW Plt Count MPV Gran % Lymph % (Auto) [place] % (Auto) Eos % (Auto) Baso % (Auto) Gran # Lymph # (Auto) [place] # (Auto) Eos # (Auto) Baso # (Auto) PT INR APTT pCO2 pO2 HCO3 ABG pH ABG Total CO2 ABG O2 Saturation ABG O2 Content ABG Base Excess ABG Hemoglobin ABG Carboxyhemoglobin POC ABG HHb (Measured) ABG Methemoglobin ABG O2 Capacity ABG Potassium VBG pH VBG pCO2 VBG HCO3 VBG Total CO2 VBG O2 Sat (Calc) VBG Base Excess VBG Potassium Hgb O2 Saturation Sodium Chloride Glucose Lactate Mechanical Rate FiO2 Tidal Volume PEEP Crit Value Called To Crit Value Called By Blood Gas Notified Time Potassium Carbon Dioxide Anion Gap BUN Creatinine Est GFR ( Amer) Est GFR (Non-Af Amer) POC Glucose (mg/dL) < 20 L* 55 L Random Glucose Calcium Phosphorus Magnesium Total Bilirubin AST ALT Alkaline Phosphatase Lactate Dehydrogenase Total Creatine Kinase CK-MB (CK-2) CK-MB (CK-2) % Troponin I NT-Pro-B Natriuret Pep Total Protein Albumin Globulin Albumin/Globulin Ratio Lipase TSH 3rd Generation Arterial Blood Potassium Venous Blood Potassium Acetaminophen Alcohol, Quantitative Blood Type Antibody Screen BBK History Checked Radiology Impressions: Radiology Impressions Head CT 07/04/18 17:25 IMPRESSION: Findings suggestive of diffuse cerebral edema likely secondary to recent hypoxic event. Air-fluid levels in multiple paranasal sinuses which may reflect acute sinusitis. Correlate clinically. The preliminary findings for this examination were reported by [facility] Radiology at 9:13 p.m. on 07/04/2018. There is concurrence of this report with the preliminary findings. Chest X-Ray 07/05/18 05:00 IMPRESSION: No active disease. EKG/Cardiology Studies: Cardiology / EKG Studies 07/04/18 17:17 EKG [ELECTROCARDIOGRAM] Stat Comment: Reason For Exam: POST CARDIAC ARREST 07/05/18 05:48 ELECTROCARDIOGRAM Stat Comment: Reason For Exam: code blue Fingerstick Blood Sugar Results: 59
--- NOTE | 2018-07-05 15:57 | RAD ---
Date of service: 07/04/2018 HISTORY: cardiac arrest COMPARISON: No prior. FINDINGS: LUNGS: Pulmonary hyperinflation. Consistent with emphysema. No infiltrate. PLEURA: No significant pleural effusion identified, no pneumothorax apparent. CARDIOVASCULAR: No aortic atherosclerotic calcification present. Normal cardiac size. No congestive change. Right tunneled central venous dialysis catheter. OSSEOUS STRUCTURES: No significant abnormalities. VISUALIZED UPPER ABDOMEN: Normal. OTHER FINDINGS: None. IMPRESSION: No active disease.
--- NOTE | 2018-07-05 17:09 | CP.PCM.PN ---
<Denny Fraser - Last Filed: 07/05/18 18:06> Subjective - Date & Time of Evaluation Date of Evaluation: 07/05/18 Time of Evaluation: 09:00 - Subjective Subjective: Pt seen and examined in the ICU. Pt is intubated, off pressers. Pt has Baire hugger overnight. TLC inserted via right femoral for levophed. Pt had code blue overnight. Asystolic on monitor, ROSC achieved after 10min, family was called and message left. Personally spoke with family when they returned phone call this morning. Objective - Vital Signs/Intake and Output Vital Signs (last 24 hours): Temp Pulse Resp BP Pulse Ox 98.4 F 116 H 31 H 139/76 95 07/05/18 10:00 07/05/18 14:00 07/05/18 00:01 07/05/18 10:00 07/05/18 10:00 Intake and Output: 07/05/18 07/05/18 06:59 18:59 Intake Total 2110 Output Total 100 Balance 2009 - Medications Medications: Current Medications Dexamethasone (Decadron Inj) 4 mg IVP Q4 KARINA Last Admin: 07/05/18 12:00 Dose: 4 mg Dextrose (Dextrose 50% Inj) 0 ml IV STAT PRN; Protocol PRN Reason: Hypoglycemia Protocol Last Admin: 07/05/18 12:05 Dose: 50 ml Multivitamins/Vitamin C 10 ml/Thiamine HCl 100 mg/ Folic Acid 1 mg/ Sodium Chloride 1,011.2 mls @ 40 mls/hr IV .Q24H ONE Stop: 07/06/18 01:01 Last Admin: 07/05/18 01:44 Dose: 40 mls/hr Vasopressin 20 units/ Sodium (Chloride) 101 mls @ 9.09 mls/hr IV .Q11H7M KARINA; Protocol Last Admin: 07/05/18 08:45 Dose: 9.09 mls/hr Dextrose (Dextrose 10% In Water) 500 mls @ 50 mls/hr IV .Q10H KARINA Last Admin: 07/05/18 10:25 Dose: 50 mls/hr Norepinephrine Bitartrate 16 (mg/ Dextrose) 266 mls @ 3.99 mls/hr IV .Q24H KARINA; Protocol Last Admin: 07/05/18 11:30 Dose: 15 mcg/min, 14.96 mls/hr Sodium Bicarbonate 100 meq/ (Dextrose) 600 mls @ 40 mls/hr IV .Q15H KARINA Pantoprazole Sodium (Protonix Inj) 40 mg IVP DAILY KARINA Last Admin: 07/05/18 09:00 Dose: 40 mg - Labs Labs: 07/05/18 05:00 07/05/18 05:00 PT 13.8 SECONDS (9.4-12.5) H 07/04/18 17:29 INR 1.21 07/04/18 17:29 APTT 34.9 Seconds (25.1-36.5) 07/04/18 17:29 - Constitutional Appears: Older Than Stated Age, Cachectic - Head Exam Head Exam: ATRAUMATIC, NORMOCEPHALIC - Eye Exam Pupil Exam: Fixed - ENT Exam ENT Exam: Mucous Membranes Moist Additional comments: intubated - Respiratory Exam Respiratory Exam: Clear to Ausculation Bilateral. absent: Accessory Muscle Use Additional comments: intubated - Cardiovascular Exam Cardiovascular Exam: RRR, +S1, +S2. 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 Plan: Neuro - intubated, off sedation - pupils fixed and dilated - CT head: findings suggestive of diffuse cerebral edema likely secondary to recent hypoxic event. - Neuro consulted, Dr Walker, pt currently has no brainstem reflexes Cardio - s/p Cardiac arrest - not a candidate for code freeze due to her malignancy - correct electrolytes PRN - maintain MAP above 65 - currently on levophed - ECHO: follow up read Respiratory - COPD - intubated - continue to monitor ABG and adjust vent settings accordingly GI - shock liver or possible EtOH hepatitis - GI ppx, protonix - NS@40 - AST 4212 - ALT 1239 Nephro/ - rhabdo - ESRD - vasopressin - monitor I/O - K 6.4 - BUN 78, Cr 4.6 - Nephro consulted Heme/ Onc - HGB 9.2 - INR 1.21 - no overt signs of bleeding - Blood type A+ ID - immunocompromised, currently on chemo - blood cultures [facility] End[facility] - accucheck q6 - hypoglycemic protocol Pt daughter who is closest next of kin, was spoken to and DNR paper work was completed Pt seen, examined, assessment and plan discussed with Dr Yara Fraser PGY1, Internal Medicine Resident <Yara Vallejo R - Last Filed: 07/05/18 19:09> Objective - Vital Signs/Intake and Output Vital Signs (last 24 hours): Temp Pulse Resp BP Pulse Ox 98.4 F 121 H 31 H 139/76 95 07/05/18 10:00 07/05/18 17:36 07/05/18 00:01 07/05/18 10:00 07/05/18 10:00 Intake and Output: 07/05/18 07/06/18 18:59 06:59 Intake Total 1800 Output Total 0 Balance 1800 - Medications Medications: Current Medications Dexamethasone (Decadron Inj) 4 mg IVP Q4 KARINA Last Admin: 07/05/18 16:00 Dose: 4 mg Dextrose (Dextrose 50% Inj) 0 ml IV STAT PRN; Protocol PRN Reason: Hypoglycemia Protocol Last Admin: 07/05/18 12:05 Dose: 50 ml Multivitamins/Vitamin C 10 ml/Thiamine HCl 100 mg/ Folic Acid 1 mg/ Sodium Chloride 1,011.2 mls @ 40 mls/hr IV .Q24H ONE Stop: 07/06/18 01:01 Last Admin: 07/05/18 01:44 Dose: 40 mls/hr Vasopressin 20 units/ Sodium (Chloride) 101 mls @ 9.09 mls/hr IV .Q11H7M KARINA; Protocol Last Admin: 07/05/18 08:45 Dose: 9.09 mls/hr Dextrose (Dextrose 10% In Water) 500 mls @ 50 mls/hr IV .Q10H KARINA Last Admin: 07/05/18 10:25 Dose: 50 mls/hr Norepinephrine Bitartrate 16 (mg/ Dextrose) 266 mls @ 3.99 mls/hr IV .Q24H KARINA; Protocol Last Admin: 07/05/18 11:30 Dose: 15 mcg/min, 14.96 mls/hr Sodium Bicarbonate 100 meq/ (Dextrose) 600 mls @ 40 mls/hr IV .Q15H [facility] Last Admin: 07/05/18 13:00 Dose: 40 mls/hr Pantoprazole Sodium (Protonix Inj) 40 mg IVP DAILY [facility] Last Admin: 07/05/18 09:00 Dose: 40 mg - Labs Labs: 07/05/18 05:00 07/05/18 05:00 PT 13.8 SECONDS (9.4-12.5) H 07/04/18 17:29 INR 1.21 07/04/18 17:29 APTT 34.9 Seconds (25.1-36.5) 07/04/18 17:29 Attending/Attestation - Attestation I have personally seen and examined this patient.: Yes I have fully participated in the care of the patient.: Yes I have reviewed all pertinent clinical information, including history, physical exam and plan: Yes Notes (Text): Patient seen and examined by me with resident at 8:15AM on 07/05/18. Case including HPI, physical exam, and assessment and plan discussed with resident. Agree with above with following additions/corrections. Patient is a 63 year old female with past medical history significant for COPD, emphysema, pneumonia, head/neck cancer, severe alcohol abuse, and ESRD on HD that presented to the emergency room s/p cardiac arrest. Unable to obtain any information from patient. Patient intubated. Unresponsive. Patient on pressors and bicarb drip. Hypothermic. Continuously hypoglycemic. Physical exam: General: Unresponsive. HEENT: Normocephalic, atraumatic. Pupils fixed and dilated. ET tube in place. Cardiovascular: Tachycardic. No murmurs, rubs, or gallops appreciated. Pulmonary: Positive vent sounds heard throughout. No rhonchi, rales, or wheezing appreciated. Gastrointestinal: Soft. Nondistended. Positive bowel sounds all 4 quadrants. Musculoskeletal:No edema appreciated Central nervous system: Unresponsive. Pupils fixed and dilated. Dermatologic: Skin warm and dry.Positive excoriations and scabs arms and legs. Assessment and plan: Patient is a 63 year old female with past medical history significant for COPD, emphysema, pneumonia, head/neck cancer, severe alcohol abuse, and ESRD on HD that presented to the emergency room s/p cardiac arrest. 1. S/P cardiac arrest. Anoxic encephalopathy. Head CT per radiologist showed findings suggestive of diffuse cerebral edema likely secondary to recent hypoxic event, air-fluid levels in multiple paranasal sinuses which may reflect acute sinusitis. Patient on decadron. Neurologist following, recommendations appreciated. Per neurologist, findings consistent with anoxic brain injury. Discussed with patients family. Patient is DNR. 2. Acute respiratory failure. Patient intubated. Vent setting per ICU 3. Cardiac arrest. Troponin elevated. 2d echo results pending. 4. Lactic acidosis. On bicarb drip 5. Hyperkalemia. ESRD on HD. Nephrology following, recommendations appreciated. Patient for possible HD today with no UF 6. Coffee ground emesis. Continue Protonix. Patient with likely brain . 7. Elevated LFTS. May be shock liver. Continue to monitor 8. Hypoglycemia. Continue D50 as needed. 9. Head and neck cancer. Patient was receiving chem and radiation. Oncologist consulted. Patient made DNR. Patient with anoxic encephalopathy and likely brain . Very poor prognosis.
[2018-07-05 19:13] VITALS: BP 101/82; O2SAT 96
[2018-07-06] MEDS: Dexamethasone 4 mg/1 ml IVP SCH (00:25)
[2018-07-06 02:57] VITALS: PULSE 78
--- NOTE | 2018-07-06 03:48 | CP.PCM.PRO ---
Pronouncement of Note - Clinical Findings Physical Exam: No Response Verbal/Painful Stimuli, Absent Peripheral Puls es{Carotid & Femoral}, Absent Heart & Breath Sounds, No Pupillary Light Reflex, No Corneal Reflex, Pupils Fixed & Dilated, Absence of Vital Signs - Pronouncement Time Time of Pronouncement of : 03:15 - Notifications Pronouncement Notifications: Family Notified, Atending Notified Banquet Food Server Notified: Yes - Autopsy Autopsy Requested: No - [place] [id number]
--- NOTE | 2018-07-06 03:52 | CP.PCM.PRO ---
Pronouncement of Note - Pronouncement Time Time of Pronouncement of : 03:15
[2018-07-06 04:57] VITALS: RESP 12; TEMP 98.1
--- NOTE | 2018-07-06 18:19 | CP.PCM.DIS ---
<Fabio Celestin - Last Filed: 07/06/18 18:01> Provider - Provider Date of Admission: 07/04/18 18:14 Attending physician: Yara Vallejo DO Primary care physician: Narayan Arizmendi MD Consults: 07/04/18 19:44 Nephrology Consult Routine Comment: Consulting Provider: Nomi Nelson Consulting Physician: Nomi Nelson Reason for Consult: Hemodialysis 07/04/18 20:00 Palliative Care Consult Routine Comment: Consulting Provider: Destiny Acevedo Physician Instructions: Reason For Exam: goals of care 07/04/18 21:26 Neurology Consult Routine Comment: Consulting Provider: De Walker Consulting Physician: De Walker Reason for Consult: hypoxic injury, cerebral edema Time Spent in preparation of Discharge (in minutes): 35 Hospital Course - Lab Results Lab Results: Micro Results 07/04/18 21:10 Nose MRSA Culture (Admit) - Final MRSA NOT DETECTED 07/04/18 17:55 Blood-Venous S.aureus & Coag-Neg Staph PNA FISH - Final TEST NOT PERFORMED 07/04/18 17:55 Blood-Venous Blood Culture - Preliminary Gram Positive Cocci 07/04/18 17:55 Blood-Venous Gram Stain - Final 07/04/18 17:25 Blood-Venous Blood Culture - Preliminary Gram Positive Cocci 07/04/18 17:25 Blood-Venous Gram Stain - Final Most Recent Lab Values WBC 5.0 10^3/uL (4.5-11.0) D 07/05/18 05:00 RBC 3.44 10^6/uL (3.5-6.1) L 07/05/18 05:00 Hgb 9.2 g/dL (12.0-16.0) L 07/05/18 05:00 Hct 30.5 % (36.0-48.0) L 07/05/18 05:00 MCV 88.7 fl (80.0-105.0) 07/05/18 05:00 MCH 26.7 pg (25.0-35.0) 07/05/18 05:00 MCHC 30.2 g/dl (31.0-37.0) L 07/05/18 05:00 RDW 15.3 % (11.5-14.5) H 07/05/18 05:00 Plt Count 44 10^3/uL (120.0-450.0) L* 07/05/18 05:00 MPV 9.3 fl (7.0-11.0) 07/05/18 05:00 Gran % 57.5 % (50.0-68.0) 07/05/18 05:00 Lymph % (Auto) 25.9 % (22.0-35.0) 07/05/18 05:00 [place] % (Auto) 16.2 % (1.0-6.0) H 07/05/18 05:00 Eos % (Auto) 0.2 % (1.5-5.0) L 07/05/18 05:00 Baso % (Auto) 0.2 % (0.0-3.0) 07/05/18 05:00 Gran # 2.87 (1.4-6.5) 07/05/18 05:00 Lymph # (Auto) 1.3 (1.2-3.4) 07/05/18 05:00 [place] # (Auto) 0.8 (0.1-0.6) H 07/05/18 05:00 Eos # (Auto) 0.0 (0.0-0.7) 07/05/18 05:00 Baso # (Auto) 0.01 K/mm3 (0.0-2.0) 07/05/18 05:00 PT 13.8 SECONDS (9.4-12.5) H 07/04/18 17:29 INR 1.21 07/04/18 17:29 APTT 34.9 Seconds (25.1-36.5) 07/04/18 17:29 pCO2 51 mm/Hg (35-45) H 07/05/18 11:15 pO2 352.0 mm/Hg (80-100) H 07/05/18 11:15 HCO3 22.9 mmol/L (21-28) 07/05/18 11:15 ABG pH 7.26 (7.35-7.45) L 07/05/18 11:15 ABG Total CO2 24.5 mmol.L (22-28) 07/05/18 11:15 ABG O2 Saturation 100.0 % (95-98) H 07/05/18 11:15 ABG O2 Content 13.2 ML/dl (15-23) L 07/05/18 05:50 ABG Base Excess -4.6 mmol/L (-2.0-3.0) L 07/05/18 11:15 ABG Hemoglobin 9.2 g/dL (11.7-17.4) L 07/05/18 05:50 ABG Carboxyhemoglobin 1.4 % (0.5-1.5) 07/05/18 05:50 POC ABG HHb (Measured) 0.1 % (0-5) 07/05/18 05:50 ABG Methemoglobin 1.1 % (0.0-3.0) 07/05/18 05:50 ABG O2 Capacity 13.2 mL/dl (16-24) L 07/05/18 05:50 ABG Potassium 5.1 mmol/L (3.6-5.2) 07/05/18 11:15 VBG pH 7.12 (7.32-7.43) L* 07/05/18 08:50 VBG pCO2 70.0 (40-60) H* 07/05/18 08:50 VBG HCO3 22.8 mmol/l (21-28) 07/05/18 08:50 VBG Total CO2 24.9 mmol.L (22-28) 07/05/18 08:50 VBG O2 Sat (Calc) 82.5 % (40-65) H 07/05/18 08:50 VBG Base Excess -7.8 mmol/L (0.0-2.0) L 07/05/18 08:50 VBG Potassium 5.9 mmol/L (3.6-5.2) H 07/05/18 08:50 Hgb O2 Saturation 97.4 % (95.0-98.0) 07/05/18 05:50 Sodium 133.0 mmol/L (132-148) 07/05/18 11:15 Chloride 99.0 mmol/L (98-107) 07/05/18 11:15 Glucose 371 mg/dl (65-105) H 07/05/18 11:15 Lactate 6.3 mmol/L (0.7-2.1) H* 07/05/18 11:15 Mechanical Rate 14 07/05/18 11:15 FiO2 100.0 % 07/05/18 11:15 Tidal Volume 350 07/05/18 11:15 PEEP 5 07/05/18 11:15 Crit Value Called To Helder melgar 07/05/18 11:15 Crit Value Called By Tonja 07/05/18 11:15 Blood Gas Notified Time 1122 07/05/18 11:15 Sodium 136 mmol/L (132-148) 07/05/18 05:00 Potassium 6.4 mmol/L (3.6-5.0) H* D 07/05/18 05:00 Chloride 97 mmol/L (98-107) L 07/05/18 05:00 Carbon Dioxide 21 mmol/L (21-33) 07/05/18 05:00 Anion Gap 24 (10-20) H 07/05/18 05:00 BUN 78 mg/dL (7-21) H 07/05/18 05:00 Creatinine 4.6 mg/dl (0.7-1.2) H 07/05/18 05:00 Est GFR ( Amer) 12 07/05/18 05:00 Est GFR (Non-Af Amer) 10 07/05/18 05:00 POC Glucose (mg/dL) < 20 mg/dL (65-110) L* 07/05/18 20:00 Random Glucose < 20 mg/dL (70-110) L* D 07/05/18 05:00 Calcium 7.5 mg/dL (8.4-10.5) L 07/05/18 05:00 Phosphorus 10.0 mg/dL (2.5-4.5) H 07/05/18 05:00 Magnesium 2.3 mg/dL (1.7-2.2) H 07/05/18 05:00 Total Bilirubin 0.7 mg/dL (0.2-1.3) 07/05/18 05:00 AST 4212 U/L (14-36) H 07/05/18 05:00 ALT 1239 U/L (7-56) H 07/05/18 05:00 Alkaline Phosphatase 61 U/L (38-126) 07/05/18 05:00 Lactate Dehydrogenase 91458 U/L (333-699) H 07/05/18 05:00 Total Creatine Kinase 3185 U/L (35-230) H 07/05/18 05:00 CK-MB (CK-2) 26.0 ng/mL (0.0-3.6) H 07/05/18 05:00 CK-MB (CK-2) % 0.8 % (2.5-3.0) L 07/05/18 05:00 Troponin I 0.30 ng/mL H* 07/05/18 05:00 NT-Pro-B Natriuret Pep 34231 pg/mL (0-450) H 07/04/18 17:29 Total Protein 4.3 g/dL (5.8-8.3) L 07/05/18 05:00 Albumin 2.2 g/dL (3.0-4.8) L 07/05/18 05:00 Globulin 2.1 gm/dL 07/05/18 05:00 Albumin/Globulin Ratio 1.0 (1.1-1.8) L 07/05/18 05:00 Lipase 25 U/L (23-300) 07/04/18 17:29 TSH 3rd Generation 8.48 mIU/mL (0.46-4.68) H 07/05/18 05:00 Arterial Blood Potassium 5.1 mmol/L (3.6-5.2) 07/05/18 11:15 Venous Blood Potassium 5.9 mmol/L (3.6-5.2) H 07/05/18 08:50 Acetaminophen < 10.0 ug/ml (10.0-20.0) L 07/04/18 20:00 Alcohol, Quantitative < 10 mg/dL (0-10) 07/04/18 20:00 Blood Type A POSITIVE 07/04/18 17:56 Antibody Screen Negative 07/04/18 17:56 BBK History Checked No verified bt 07/04/18 17:56 - Hospital Course Hospital Course: This 63 yo female with a PMH of COPD, emphysema, pneumonia, 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 Pt was found at home with agonal breathing by police. Patient was administered CPR per [facility] ACLS protocols on the way to the hospital and ROSC was achieved. Once at the hospital, she was intubated and transferred to the ICU, where she suffered another episode of cardiac arrest. ROSC was achieved after 10 minutes of CPR and 3 rounds of epinephrine were administered, as was 1amp bicarb. Patient was interviewed by medical team on Saturday morning and found to have lesions suspicious for bed bugs. Patient was placed on contact precautions per protocol. Unfortunately, patient had one final bout of cardiac arrest; at this point, family had been contacted and requested patient be made DNR. Patient at 3:15A on 07/06/18. Discharge Exam - Head Exam Head Exam: ATRAUMATIC, NORMOCEPHALIC - Additional Findings Additional findings: Patient Discharge Plan - Follow Up Plan Condition: CRITICAL Disposition: WITH WITHOUT AUTOPSY Referrals: Narayan Arizmendi MD [Primary Care Provider] - <Yara Vallejo - Last Filed: 07/08/18 14:47> Provider - Provider Date of Admission: 07/04/18 18:14 Attending physician: Yara Vallejo DO Primary care physician: Narayan Arizmendi MD Consults: 07/04/18 19:44 Nephrology Consult Routine Comment: Consulting Provider: Nomi Nelson Consulting Physician: Nomi Nelson Reason for Consult: Hemodialysis 07/04/18 20:00 Palliative Care Consult Routine Comment: Consulting Provider: Destiny Acevedo Physician Instructions: Reason For Exam: goals of care 07/04/18 21:26 Neurology Consult Routine Comment: Consulting Provider: De Walker Consulting Physician: eD Walker Reason for Consult: hypoxic injury, cerebral edema Hospital Course - Lab Results Lab Results: Micro Results 07/04/18 17:55 Blood-Venous Blood Culture - Final Coagulase Neg Staphylococcus 07/04/18 17:55 Blood-Venous Gram Stain - Final 07/04/18 17:25 Blood-Venous Blood Culture - Final Coagulase Neg Staphylococcus 07/04/18 17:25 Blood-Venous Gram Stain - Final 07/04/18 21:10 Nose MRSA Culture (Admit) - Final MRSA NOT DETECTED Most Recent Lab Values WBC 5.0 10^3/uL (4.5-11.0) D 07/05/18 05:00 RBC 3.44 10^6/uL (3.5-6.1) L 07/05/18 05:00 Hgb 9.2 g/dL (12.0-16.0) L 07/05/18 05:00 Hct 30.5 % (36.0-48.0) L 07/05/18 05:00 MCV 88.7 fl (80.0-105.0) 07/05/18 05:00 MCH 26.7 pg (25.0-35.0) 07/05/18 05:00 MCHC 30.2 g/dl (31.0-37.0) L 07/05/18 05:00 RDW 15.3 % (11.5-14.5) H 07/05/18 05:00 Plt Count 44 10^3/uL (120.0-450.0) L* 07/05/18 05:00 MPV 9.3 fl (7.0-11.0) 07/05/18 05:00 Gran % 57.5 % (50.0-68.0) 07/05/18 05:00 Lymph % (Auto) 25.9 % (22.0-35.0) 07/05/18 05:00 [place] % (Auto) 16.2 % (1.0-6.0) H 07/05/18 05:00 Eos % (Auto) 0.2 % (1.5-5.0) L 07/05/18 05:00 Baso % (Auto) 0.2 % (0.0-3.0) 07/05/18 05:00 Gran # 2.87 (1.4-6.5) 07/05/18 05:00 Lymph # (Auto) 1.3 (1.2-3.4) 07/05/18 05:00 [place] # (Auto) 0.8 (0.1-0.6) H 07/05/18 05:00 Eos # (Auto) 0.0 (0.0-0.7) 07/05/18 05:00 Baso # (Auto) 0.01 K/mm3 (0.0-2.0) 07/05/18 05:00 PT 13.8 SECONDS (9.4-12.5) H 07/04/18 17:29 INR 1.21 07/04/18 17:29 APTT 34.9 Seconds (25.1-36.5) 07/04/18 17:29 pCO2 51 mm/Hg (35-45) H 07/05/18 11:15 pO2 352.0 mm/Hg (80-100) H 07/05/18 11:15 HCO3 22.9 mmol/L (21-28) 07/05/18 11:15 ABG pH 7.26 (7.35-7.45) L 07/05/18 11:15 ABG Total CO2 24.5 mmol.L (22-28) 07/05/18 11:15 ABG O2 Saturation 100.0 % (95-98) H 07/05/18 11:15 ABG O2 Content 13.2 ML/dl (15-23) L 07/05/18 05:50 ABG Base Excess -4.6 mmol/L (-2.0-3.0) L 07/05/18 11:15 ABG Hemoglobin 9.2 g/dL (11.7-17.4) L 07/05/18 05:50 ABG Carboxyhemoglobin 1.4 % (0.5-1.5) 07/05/18 05:50 POC ABG HHb (Measured) 0.1 % (0-5) 07/05/18 05:50 ABG Methemoglobin 1.1 % (0.0-3.0) 07/05/18 05:50 ABG O2 Capacity 13.2 mL/dl (16-24) L 07/05/18 05:50 ABG Potassium 5.1 mmol/L (3.6-5.2) 07/05/18 11:15 VBG pH 7.12 (7.32-7.43) L* 07/05/18 08:50 VBG pCO2 70.0 (40-60) H* 07/05/18 08:50 VBG HCO3 22.8 mmol/l (21-28) 07/05/18 08:50 VBG Total CO2 24.9 mmol.L (22-28) 07/05/18 08:50 VBG O2 Sat (Calc) 82.5 % (40-65) H 07/05/18 08:50 VBG Base Excess -7.8 mmol/L (0.0-2.0) L 07/05/18 08:50 VBG Potassium 5.9 mmol/L (3.6-5.2) H 07/05/18 08:50 Hgb O2 Saturation 97.4 % (95.0-98.0) 07/05/18 05:50 Sodium 133.0 mmol/L (132-148) 07/05/18 11:15 Chloride 99.0 mmol/L (98-107) 07/05/18 11:15 Glucose 371 mg/dl (65-105) H 07/05/18 11:15 Lactate 6.3 mmol/L (0.7-2.1) H* 07/05/18 11:15 Mechanical Rate 14 07/05/18 11:15 FiO2 100.0 % 07/05/18 11:15 Tidal Volume 350 07/05/18 11:15 PEEP 5 07/05/18 11:15 Crit Value Called To Helder melgar 07/05/18 11:15 Crit Value Called By Tonja 07/05/18 11:15 Blood Gas Notified Time 1122 07/05/18 11:15 Sodium 136 mmol/L (132-148) 07/05/18 05:00 Potassium 6.4 mmol/L (3.6-5.0) H* D 07/05/18 05:00 Chloride 97 mmol/L (98-107) L 07/05/18 05:00 Carbon Dioxide 21 mmol/L (21-33) 07/05/18 05:00 Anion Gap 24 (10-20) H 07/05/18 05:00 BUN 78 mg/dL (7-21) H 07/05/18 05:00 Creatinine 4.6 mg/dl (0.7-1.2) H 07/05/18 05:00 Est GFR ( Amer) 12 07/05/18 05:00 Est GFR (Non-Af Amer) 10 07/05/18 05:00 POC Glucose (mg/dL) < 20 mg/dL (65-110) L* 07/05/18 20:00 Random Glucose < 20 mg/dL (70-110) L* D 07/05/18 05:00 Calcium 7.5 mg/dL (8.4-10.5) L 07/05/18 05:00 Phosphorus 10.0 mg/dL (2.5-4.5) H 07/05/18 05:00 Magnesium 2.3 mg/dL (1.7-2.2) H 07/05/18 05:00 Total Bilirubin 0.7 mg/dL (0.2-1.3) 07/05/18 05:00 AST 4212 U/L (14-36) H 07/05/18 05:00 ALT 1239 U/L (7-56) H 07/05/18 05:00 Alkaline Phosphatase 61 U/L (38-126) 07/05/18 05:00 Lactate Dehydrogenase 07539 U/L (333-699) H 07/05/18 05:00 Total Creatine Kinase 3185 U/L (35-230) H 07/05/18 05:00 CK-MB (CK-2) 26.0 ng/mL (0.0-3.6) H 07/05/18 05:00 CK-MB (CK-2) % 0.8 % (2.5-3.0) L 07/05/18 05:00 Troponin I 0.30 ng/mL H* 07/05/18 05:00 NT-Pro-B Natriuret Pep 26364 pg/mL (0-450) H 07/04/18 17:29 Total Protein 4.3 g/dL (5.8-8.3) L 07/05/18 05:00 Albumin 2.2 g/dL (3.0-4.8) L 07/05/18 05:00 Globulin 2.1 gm/dL 07/05/18 05:00 Albumin/Globulin Ratio 1.0 (1.1-1.8) L 07/05/18 05:00 Lipase 25 U/L (23-300) 07/04/18 17:29 TSH 3rd Generation 8.48 mIU/mL (0.46-4.68) H 07/05/18 05:00 Arterial Blood Potassium 5.1 mmol/L (3.6-5.2) 07/05/18 11:15 Venous Blood Potassium 5.9 mmol/L (3.6-5.2) H 07/05/18 08:50 Acetaminophen < 10.0 ug/ml (10.0-20.0) L 07/04/18 20:00 Alcohol, Quantitative < 10 mg/dL (0-10) 07/04/18 20:00 Blood Type A POSITIVE 07/04/18 17:56 Antibody Screen Negative 07/04/18 17:56 BBK History Checked No verified bt 07/04/18 17:56 Attending/Attestation - Attestation I have personally seen and examined this patient.: Yes I have fully participated in the care of the patient.: Yes I have reviewed all pertinent clinical information, including history, physical exam and plan: Yes Notes (Text): Please note this DC summary is for 07/06/18 Patient at 3:15AM 07/06/18. Case discussed with resident. Agree with above with following additions/corrections. Patient is a 63-year-old female with past medical history significant for COPD, emphysema, pneumonia, head/neck cancer, severe alcohol abuse, and ESRD on HD that presented to the emergency room s/p cardiac arrest. Please see H&P for full details. Patient was admitted with s/p cardiac arrest, respiratory failure, lactic acidosis, hyperkalemia, coffee ground emesis, elevated LFTS, hypoglycemia, alcohol abuse, and head and neck cancer. Patient was found at home by police. At that time, patient was found to have agonal breathing. Patient went into cardiac arrest and had to have multiple episodes of defibrillation. Patient was intubated. Patient again had an episode of cardiac arrest once admitted. Patient was placed on pressors and bicarb drip. Newspaper Copy Editor was consulted. Neurologist was consulted. Palliative care was consulted. Case was discussed with family who made family DNR. PH was 7.11 on ABG on admission. Potassium was 5.7. Patient was hyperglycemic then persistently became hypoglycemic. LFTs were elevated and worsened throughout patients stay to AST 4214 and ALT 1239. ProBNP was 27,800. Troponin was 0.24, 0.31, 0.30. Potassium increased to 6.4. Head CT per radiologist showed findings suggestive of diffuse cerebral edema likely secondary to recent hypoxic event, air-fluid levels in multiple paranasal sinuses which may reflect acute sinusitis. Patient on decadron. Patient was found to have anoxic encephalopathy. 2D echo per client administrator showed technically limited study, chamber sized appear within normal limits, mild concentric LVH, moderate LV systolic dysfunction with anteroseptal hypokinesis and septal dyskinesis, mild , moderate AI, mild TR. Patient was place on protonix for coffee ground emesis. H&H was downtrading. Patient was placed on D50 as needed for hypoglycemia. Patient was seen by oncologist for history of head and neck cancer. Patient again went into cardiac arrest and no CPR was done as patient was DNR. Patient and was pronounced at 3:15AM on 07/06/18. Family was notified. Please see chart for full details.
--- NOTE | 2018-07-07 08:04 | CARD ---
APPROVED REPORT Date of service: 07/05/2018 EXAM: Two-dimensional and M-mode echocardiogram with Doppler and color Doppler. INDICATION CARDIAC ARREST 2D DIMENSIONS Left Atrium (2D)1.8 (1.6-4.0cm)IVSd1.3 (0.7-1.1cm) LVDd3.3 (3.9-5.9cm)LVOT Diameter2.2 (1.8-2.4cm) PWd1.4 (0.7-1.1cm)LVDs2.6 (2.5-4.0cm) FS (%) 19.3 %LVEF (%)40.7 (>50%) M-Mode DIMENSIONS Aortic Root3.40 (2.2-3.7cm)Aortic Cusp Exc.1.30 (1.5-2.0cm) Aortic Valve AoV Peak Mlhquulp699.0cm/sAoV VTI20.6cmAO Peak GR.14mmHg LVOT Peak Dogfzmfx92.2cm/sLVOT VTI7.95cmAO Mean GR.7mmHg DEVIN (VMAX)1.99kq7AOL (VTI)1.47cm2 Mitral Valve MV E Pxnidqjf34.8cm/sMV A Abmyxtvq78.3cm/sE/A ratio0.6 TDI Lateral E' Peak V5.94cm/sMedial E' Peak V3.06cm/sE/Lateral E'8.9 E/Medial E'17.3 Tricuspid Valve TR Peak Uuskxyqu808oq/sRAP [id number] Peak Gr.23mmHg [id number] LEFT VENTRICLE The left ventricle is normal size. There is mild concentric left ventricular hypertrophy. The systolic function is moderately impaired. There is septal dyskinesis and severe anteroseptal hypokinesis. RIGHT VENTRICLE The right ventricle is normal size. The right ventricular systolic function is normal. ATRIA The left atrium size is normal. The right atrium size is normal. The interatrial septum is intact with no evidence for an atrial septal defect. AORTIC VALVE The aortic valve is mildly to moderately calcified. There is moderate aortic regurgitation. There is mild valvular aortic stenosis. MITRAL VALVE Mitral annular calcification is mild. Mitral regurgitation is trace. TRICUSPID VALVE The tricuspid valve is normal in structure. There is mild tricuspid regurgitation. PULMONIC VALVE The pulmonic valve is not well visualized. GREAT VESSELS The aortic root is normal in size. The IVC is normal in size and collapses >50% with inspiration. PERICARDIAL EFFUSION There is no pleural effusion. There is no pericardial effusion. <Conclusion> Technically limited study. Patient on ventilator in ICU. Chamber sizes appear within normal limits. Mild concentric LVH. Moderate LV systolic dysfunction with anteroseptal hypokinesis and septal dyskinesis. Mild . Moderate AI. Mild TR.
== END 2018-07-06 03:15 | DRG 133 ==
LOC: ED 17:11 → ERH 18:14 → ICU 20:58
PROVIDERS: ADMIT Hospitalist; ATTEND Hospitalist
PROC: 5A1945Z Respiratory Ventilation, 24-96 Consecutive Hours (ICD-10-PCS; principal; 2018-07-04)
PROC: 06HY33Z Insertion of Infusion Device into Lower Vein, Percutaneous Approach (ICD-10-PCS; 2018-07-04)
DX: J96.01 Acute respiratory failure with hypoxia (principal); G93.1 Anoxic brain damage, not elsewhere classified; I12.0 Hypertensive chronic kidney disease with stage 5 chronic kidney disease or end stage renal disease; N18.6 End stage renal disease; E87.2 Acidosis; R64 Cachexia; Z68.1 Body mass index [BMI] 19.9 or less, adult; C76.0 Malignant neoplasm of head, face and neck; Z66 Do not resuscitate; E87.5 Hyperkalemia; J44.9 Chronic obstructive pulmonary disease, unspecified; D64.9 Anemia, unspecified; E16.2 Hypoglycemia, unspecified; F10.10 Alcohol abuse, uncomplicated; Z99.2 Dependence on renal dialysis; Z87.01 Personal history of pneumonia (recurrent)